=== PATIENT | female | born 1995 | race African-American/Black ===

== ENCOUNTER 2017-05-20 08:49 | Inpatient (IN) | payer OTHER ==
[~2017-05-20] VITALS: Ht 170.2 cm; Wt 82.0 kg
[2017-05-20] VITALS (10 sets, daily range): BP systolic 74–114; BP diastolic 40–61; PULSE 120–140; RESP 18–40; TEMP 98.6–100.1; O2SAT 90–100
[2017-05-20] MEDS ORDERED: SODIUM CHLOR 0.9% 1000 ML INJ 1,000 ML IV ONE ×6 (09:30→11:45)
--- NOTE | 2017-05-20 09:42 | PD ---
HPI Chief Complaint: Cold / Flu Symptoms Time Seen by Provider: 09:30 Travel History International Travel<30 days: No Contact w/Intl Traveler<30days: No Traveled to known affect area: No History of Present Illness HPI This is a 21-year-old female with no previous significant medical history, presents today with complaints of fevers ideation numbness and tingling to her hands and feet as well as sore throat and cough. The patient states on Saturday she started developing sore throat. She states since then she's had significant nausea vomiting. She states she is unable to hold anything down. She reports today just feeling so weak that she could barely get up. The patient has not been immunized for the influenza virus. She reports a temperature 101.4 this morning. 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 The patient denies any history of tobacco use. There is no reported control use. There is no reported long car rides or plane rides. There is no previous trauma to the lower extremities and there is no calf tenderness. There are no other complaints at the time of my examination. [facility] Past Medical History Medical History: Denies Significant Hx ?: Not Past Surgical History Surgical History: No Previous Surgery Social History Alcohol Use: No Tobacco Use: No Substance Use: No Allergies-Medications (Allergen,Severity, Reaction): Coded Allergies: No Known Allergies (Unverified , 05/20/17) Reported Meds & Prescriptions Reported Meds & Active Scripts Active No Active Prescriptions or Reported Medications Review of Systems Except as stated in HPI: all other systems reviewed are Neg General / Constitutional: Positive: Fever, Chills Eyes: No: Blurred Vision, Drainage HENT: Positive: Sore Throat, No: Headaches, Rhinorrhea, Neck Stiffness, Neck Pain Cardiovascular: No: Chest Pain or Discomfort, Palpitations Respiratory: Positive: Cough (patient states she feels like she needs to cough up phlegm however is unable to), Shortness of Breath, Pleuritic Pain, No: Hemoptysis Gastrointestinal: Positive: Nausea, Vomiting, No: Diarrhea, Abdominal Pain Genitourinary: No: Frequency, Dysuria Musculoskeletal: Positive: Weakness (unrealized), Pain (diffuse body aches), No : Edema Skin: No Rash, No Lesions Neurologic: Positive: Weakness (generalized), Sensory Disturbance (numbness and tingling to her hands and feet), No: Focal Abnormalities, Headache Physical Exam Narrative GENERAL: Well-developed well-nourished female in moderate respiratory distress. SKIN: Focused skin assessment warm/dry. HEAD: Atraumatic. Normocephalic. EYES: No scleral icterus. No injection or drainage. ENT: No nasal bleeding or discharge. Dry mucous membranes. Posterior pharynx erythematous with no exudate. Uvula is midline. No stridor appreciated. NECK: Trachea midline. Supple. CARDIOVASCULAR: Tachycardic with a rate in the low 150s. No obvious murmur appreciated. RESPIRATORY: No accessory muscle use. Clear to auscultation. Breath sounds equal bilaterally. Shallow respirations bilaterally. GASTROINTESTINAL: Abdomen soft, non-tender, nondistended. No tenderness over her spleen. No rebound or guarding. MUSCULOSKELETAL: No obvious deformities. No clubbing. No cyanosis. No edema. NEUROLOGICAL: Awake and alert. No obvious cranial nerve deficits. Motor grossly within normal limits. Normal speech. PSYCHIATRIC: Appropriate mood and affect; insight and judgment normal. Data Data Last Documented VS Vital Signs Date Time Temp Pulse Resp B/P (MAP) Pulse Ox O2 Delivery O2 Flow Rate FiO2 05/20/17 10:40 140 32 85/43 (57) 96 2.00 05/20/17 10:40 Nasal Cannula Orders Orders Complete Blood Count With Diff (05/20/17 09:30) Comprehensive Metabolic Panel (05/20/17 09:30) Blood Culture (05/20/17 09:30) Urinalysis - C+S If Indicated (05/20/17 09:30) D-Dimer (05/20/17 09:30) Group A Rapid Strep Screen (05/20/17 09:30) Influenzae A/B Antigen (05/20/17 09:30) Chest, Single Ap (05/20/17 09:30) Iv Access Insert/Monitor (05/20/17 09:30) Ecg Monitoring (05/20/17 09:30) Oximetry (05/20/17 09:30) Ed Urine Pregnancytest Poc (05/20/17 09:30) Monoscreen (05/20/17 09:30) Sodium Chlor 0.9% 1000 Ml Inj (Ns 1000 M (05/20/17 09:30) Sodium Chlor 0.9% 1000 Ml Inj (Ns 1000 M (05/20/17 10:15) Strep Culture (Group A) (05/20/17 09:40) Ibuprofen (Motrin) (05/20/17 10:30) Electrocardiogram (05/20/17 ) Hepatitis Profile (05/20/17 10:45) Sodium Chlor 0.9% 1000 Ml Inj (Ns 1000 M (05/20/17 11:45) Admit Order (Ed Use Only) (05/20/17 11:39) Lactic Acid Sepsis Protocol (05/20/17 11:41) Creatine Kinase (Cpk) (05/20/17 11:41) Cbc No Diff, Includes Plts (05/21/17 05:00) Cbc No Diff, Includes Plts (05/22/17 05:00) Cbc No Diff, Includes Plts (05/23/17 05:00) Cbc No Diff, Includes Plts (05/24/17 05:00) Cbc No Diff, Includes Plts (05/25/17 05:00) Cbc No Diff, Includes Plts (05/26/17 05:00) Cbc No Diff, Includes Plts (05/27/17 05:00) Basic Metabolic Panel (Bmp) (05/21/17 05:00) Basic Metabolic Panel (Bmp) (05/22/17 05:00) Basic Metabolic Panel (Bmp) (05/23/17 05:00) Basic Metabolic Panel (Bmp) (05/24/17 05:00) Basic Metabolic Panel (Bmp) (05/25/17 05:00) Basic Metabolic Panel (Bmp) (05/26/17 05:00) Basic Metabolic Panel (Bmp) (05/27/17 05:00) Inpatient Certification (05/20/17 11:38) Resp Ezpap/Pep Therapy (05/20/17 11:38) Resp Acapella/Pep/Chest Vibra (05/20/17 11:38) Resp Incentive Spirometry (05/20/17 11:38) Blood Culture (05/20/17 11:38) Specimen To Be Collected PRN (05/20/17 11:38) Arterial Blood Gas (Abg) (05/20/17 11:38) Urinary Catheter Management MATTY.Q1H (05/20/17 11:38) Tylenol (Acetaminophen) (05/20/17 11:38) Salicylates (Aspirin) (05/20/17 11:38) Alcohol (Ethanol) (05/20/17 11:38) Drug Screen,Ur W/Confirmation (05/20/17 11:38) Labs Laboratory Tests Test 05/20/17 09:30 05/20/17 09:40 05/20/17 10:55 White Blood Count 14.0 TH/MM3 Red Blood Count 4.46 MIL/MM3 Hemoglobin 13.5 GM/DL Hematocrit 41.3 % Mean Corpuscular Volume 92.7 FL Mean Corpuscular Hemoglobin 30.3 PG Mean Corpuscular Hemoglobin Concent 32.7 % Red Cell Distribution Width 12.9 % Platelet Count 146 TH/MM3 Mean Platelet Volume 10.0 FL Neutrophils (%) (Auto) 95.7 % Lymphocytes (%) (Auto) 2.1 % Monocytes (%) (Auto) 1.7 % Eosinophils (%) (Auto) 0.4 % Basophils (%) (Auto) 0.1 % Neutrophils # (Auto) 13.4 TH/MM3 Lymphocytes # (Auto) 0.3 TH/MM3 Monocytes # (Auto) 0.2 TH/MM3 Eosinophils # (Auto) 0.1 TH/MM3 Basophils # (Auto) 0.0 TH/MM3 CBC Comment AUTO DIFF Differential Total Cells Counted 100 Neutrophils % (Manual) 25 % Band Neutrophils % 16 % Lymphocytes % 2 % Monocytes % 2 % Neutrophils # (Manual) 13.4 TH/MM3 Metamyelocytes 54 % Myelocytes 1 % Differential Comment FINAL DIFF MANUAL Toxic Granulation 1+ Toxic Vacuolation PRESENT Dohle Bodies PRESENT Platelet Estimate NORMAL Platelet Morphology Comment NORMAL D-Dimer Quantitative (PE/DVT) 13.97 MG/L FEU Blood Urea Nitrogen 47 MG/DL Creatinine 6.52 MG/DL Random Glucose 93 MG/DL Total Protein 7.2 GM/DL Albumin 3.3 GM/DL Calcium Level 8.0 MG/DL Alkaline Phosphatase 64 U/L Aspartate Amino Transf (AST/SGOT) 71 U/L Alanine Aminotransferase (ALT/SGPT) 81 U/L Total Bilirubin 5.5 MG/DL Sodium Level 131 MEQ/L Potassium Level 3.2 MEQ/L Chloride Level 93 MEQ/L Carbon Dioxide Level 16.0 MEQ/L Anion Gap 22 MEQ/L Estimat Glomerular Filtration Rate 10 ML/MIN Monoscreen NEG MDM Medical Decision Making Medical Screen Exam Complete: Yes Emergency Medical Condition: Yes Differential Diagnosis Strep throat versus mono versus influenza versus pneumonia versus dehydration Narrative Course 21-year-old female presents with weakness, numbness and tingling to her extremities, nausea vomiting diarrhea. The patient states it started on Saturday. She's been feeling bad since then. There is reported fevers of 101.4. The patient has a known elevated white blood cell count of 14,000. She has predominantly segs. Patient also has acute kidney failure and elevated liver enzymes including bilirubin. Monospot, influenza, strep screen are all negative. The patient's been given 2 L of IVD fluid. A third is hanging now. There is a call out to the manager configuration for admission. I did order a hepatitis panel. Critical Care Narrative Aggregate critical care time was 45 minutes. Time to perform other separately billable procedures was not included in the critical care time. My time did not include minutes spent treating any other patients simultaneously or on activities that did not directly contribute to the patient's treatment. The services I provided to this patient were to treat and/or prevent clinically significant deterioration that could result in: I provided critical care services requiring my management, as noted below: Chart data review, documentation time, medication orders and management, vital sign assessments/reviewing monitor data, ordering and reviewing lab tests, ordering and interpreting/reviewing x-rays and diagnostic studies, care of the patient and discussion of the patient with the admitting physicians. Diagnosis Primary Impression: Acute renal failure Additional Impressions: Elevated liver enzymes persistent tachycardia Nausea vomiting and diarrhea mild hypokalemia mild hyponatremia Admitting Information Admitting Physician Requests: Admit Scripts No Active Prescriptions or Reported Meds Magdy Kaur MD May 20, 2017 09:42
[2017-05-20 09:53] LABS: AUTOMATED NEUTROPHIL # 13.4 TH/MM3 (1.8-7.7); BASOPHIL % 0.1 % (0.0-2.0); EOSINOPHIL # 0.1 TH/MM3 (0-0.4); EOSINOPHIL % 0.4 % (0.0-4.0); HEMATOCRIT 41.3 % (35.0-46.0); HEMOGLOBIN 13.5 GM/DL (11.6-15.3); LYMPH % 2.1 % (9.0-44.0); LYMPHOCYTE # 0.3 TH/MM3 (1.0-4.8); MEAN CELL VOLUME 92.7 FL (80.0-100.0); MEAN CORPUSCULAR HEMOGLOBIN 30.3 PG (27.0-34.0); MEAN CORPUSCULAR HGB CONC 32.7 % (32.0-36.0); MONO % 1.7 % (0.0-8.0); MONOCYTE # 0.2 TH/MM3 (0-0.9); NEUT % 95.7 % (16.0-70.0); PLATELET COUNT 146 TH/MM3 (150-450); RED BLOOD COUNT 4.46 MIL/MM3 (4.00-5.30); RED CELL DISTRIBUTION WIDTH 12.9 % (11.6-17.2)
--- NOTE | 2017-05-20 10:01 | RADRPT ---
EXAM DATE/TIME: 05/20/2017 09:45 [facility] COMPARISON: No previous studies available for comparison. INDICATIONS : Patient states fever and cough. MEDICAL HISTORY : None. SURGICAL HISTORY : None. ENCOUNTER: Initial ACUITY: 3 days PAIN SCORE: 0/10 LOCATION: Bilateral chest FINDINGS: A single view of the chest demonstrates the lungs to be symmetrically aerated without evidence of mas s, infiltrate or effusion. The cardiomediastinal contours are unremarkable. Mild scoliosis convex t o the left centered at T6.. CONCLUSION: No acute disease. Zeus Pulido MD FACR on May 20, 2017 at 9:56 Board Certified Radiologist. This report was verified electronically.
[2017-05-20 10:10] LABS: ALBUMIN 3.3 GM/DL (3.4-5.0); ALT (GPT) 81 U/L (9-42); AST (GOT) 71 U/L (16-38); BLOOD UREA NITROGEN 47 MG/DL (7-18); CHLORIDE 93 MEQ/L (98-107); CREATININE 6.52 MG/DL (0.50-1.00); GLOMERULAR FILTRATION RATE 10 ML/MIN (>89); GLUCOSE,RANDOM 93 MG/DL (74-106); SODIUM (NA) 131 MEQ/L (136-145)
[2017-05-20 10:12] LABS: ALKALINE PHOSPHATASE 64 U/L (45-117); TOTAL BILIRUBIN ADULT 5.5 MG/DL (0.2-1.0); TOTAL PROTEIN 7.2 GM/DL (6.4-8.2)
[2017-05-20] MEDS ORDERED: IBUPROFEN 800 MG TAB PO ONE ×2 (10:30)
[2017-05-20 10:43] LABS: BANDS 16 % (0-6); DOHLE BODIES PRESENT (NONE SEEN); LYMPHOCYTES 2 % (9-44); METAMYELOCYTES 54 % (0-1); MONOCYTES 2 % (0-8); MYELOCYTES 1 % (0-0); NEUTROPHIL # MANUAL DIFF 13.4 TH/MM3 (1.8-7.7); POLYS (SEG NEUTROPHILS) 25 % (16-70); TOXIC VACUOLATION PRESENT (NONE SEEN)
[2017-05-20 10:44] LABS: TOXIC GRANULATION 1+ (NORMAL)
[2017-05-20] MEDS: SODIUM CHLOR 0.9% 1000 ML INJ 1,000 ML IV SCH ×4 (11:46→18:42)
[2017-05-20] MEDS ORDERED: MISCELLANEOUS NURSING INFORMATION XX SCH ×2 (12:00)
[2017-05-20] MEDS ORDERED: CHLORHEXIDINE GLUCONATE 2 % 1 PACK (2 CLOTHS) TOP PRN ×2 (12:00)
[2017-05-20] MEDS ORDERED: RESP: ALBUTEROL 2.5 MG/IPRATROPIUM 0.5 MG NEB (PRN) INH ×2 (12:00)
[2017-05-20 12:13] LABS: PROTHROMBIN TIME - PATIENT 22.3 SEC (9.8-11.6)
--- NOTE | 2017-05-20 12:15 | EKG ---
Date Performed: 05/20/2017 Time Performed: 09:16:05 PTAGE: 21 years EKG: SINUS TACHYCARDIA WITH SHORT CO INTERVAL, POSSIBLE ATRIAL FLUTTER NONSPECIFIC T-WAVE ABNORM ALITY ABNORMAL RHYTHM ECG Compared to prior tracing no significant change PREVIOUS TRACING : 05/18/2017 03.26 DOCTOR: Isma Donald Interpretating Date/Time 05/20/2017 12:12:40
--- NOTE | 2017-05-20 12:15 | EKG ---
Date Performed: 05/20/2017 Time Performed: 09:16:05 PTAGE: 21 years EKG: SINUS TACHYCARDIA WITH SHORT VT INTERVAL, POSSIBLE ATRIAL FLUTTER NONSPECIFIC T-WAVE ABNORM ALITY ABNORMAL RHYTHM ECG Compared to prior tracing no significant change PREVIOUS TRACING : 05/18/2017 03.26 DOCTOR: Isma Donald Interpretating Date/Time 05/20/2017 12:12:40
--- NOTE | 2017-05-20 12:15 | EKG ---
Date Performed: 05/20/2017 Time Performed: 09:16:05 PTAGE: 21 years EKG: SINUS TACHYCARDIA WITH SHORT VA INTERVAL, POSSIBLE ATRIAL FLUTTER NONSPECIFIC T-WAVE ABNORM ALITY ABNORMAL RHYTHM ECG Compared to prior tracing no significant change PREVIOUS TRACING : 05/18/2017 03.26 DOCTOR: Isma Donald Interpretating Date/Time 05/20/2017 12:12:40
[2017-05-20 12:30] LABS: HEPATITIS A AB IGM NEGATIVE (NEGATIVE); HEPATITIS C AB IgG NEGATIVE (NEGATIVE)
[2017-05-20 12:38] LABS: ACETAMINOPHEN LESS THAN 2.0 MCG/ML (10.0-30.0)
[2017-05-20] MEDS: HEPARIN SODIUM - SQ 10,000 UNITS/ML VIAL SQ SCH ×2 (13:00)
--- NOTE | 2017-05-20 13:15 | RADRPT ---
EXAM DATE/TIME: 05/20/2017 12:08 [facility] COMPARISON: No previous studies available for comparison. INDICATIONS : Abdominal pain. MEDICAL HISTORY : Abdominal pain. Nausea. Vomitting. SURGICAL HISTORY : None. ENCOUNTER: Initial ACUITY: 2 days PAIN SCORE: 6/10 LOCATION: Abdomen. MEASUREMENTS: LIVER: 16.8 cm length COMMON DUCT: 2 mm RIGHT KIDNEY: 11.2 x 5.0 x 3.6 cm LEFT KIDNEY: 11.6 x 4.9 x 5.0 cm SPLEEN: 12.2 cm length AORTA: 1.1cm maximal FINDINGS: LIVER: Scattered small hyperechoic areas left lobe liver nonspecific. COMMON DUCT: No intraluminal mass or stone visualized. GALLBLADDER: Contains no stones, demonstrates no wall thickening or pericholecystic fluid. PANCREAS: The visualized portions are within normal limits. RIGHT KIDNEY: No hydronephrosis, stone or mass. LEFT KIDNEY: 1.4 center cyst left kidney SPLEEN: No focal lesion. AORTA: Non aneurysmal. IVC: Within normal limits. CONCLUSION: Scattered small hyperechoic nonspecific there is left lobe of the liver. There are no gallstones. C T scan with contrast may be of benefit. Zeus Pulido MD FACR on May 20, 2017 at 13:11 Board Certified Radiologist. This report was verified electronically.
[2017-05-20 14:15] LABS: LACTIC ACID SEPSIS PROTOCOL 6.8 mmol/L (0.4-2.0)
[2017-05-20 14:28] LABS: HEPATITIS B SURFACE ANTIGEN NEGATIVE (NEGATIVE)
[2017-05-20] MEDS ORDERED: TERBUTALINE INJ 1 MG/ML AMP SQ PRN ×2 (14:45)
[2017-05-20 14:58] LABS: AMORPHOUS SEDIMENT, URINE RARE; BACTERIA, URINE MANY /hpf; BILIRUBIN, URINE MOD (NEG); BLOOD, URINE MOD (NEG); GLUCOSE,URINE NEG (NEG); HYALINE CAST, URINE 19 /lpf (RARE); KETONE, URINE NEG (NEG); NITRITE,URINE NEG (NEG); PH, URINE 5.5 (5.0-8.5); SQUAMOUS EPITHELIAL CELL URINE 1 /hpf (0-5); URINE COLOR DARK-YELLOW (YELLW/STRAW); URINE LEUKOCYTE ESTERASE MOD (NEG)
[2017-05-20] MEDS: NOREPINEPHRINE-DEXTROSE DRIP 250 ML IV PRN ×2 (15:04)
--- NOTE | 2017-05-20 15:12 | PD.ID.CON ---
History of Present Illness Service ID Consult Requested By External Relations Manager. Reason for Consult Evaluation and Mment of sepsis possible HUS. Primary Care Physician Unknown Diagnoses: History of Present Illness is a 21 y/o AAF with no significant PMHx who presents with acute onset of diarrhea, N/V, extreme weakness with no urine output for ~ 3 days prior to admission. Patient reports she was playing her usual volley ball game and came home and had a a nap. When she woke up she felt nauseous, vomited couple of times and had diarrhea with no blood since then. She continued to have these symptoms since that day and progressively felt weak, achy with headaches. She denies any visual problems. She reports discomfort in her throat and secretions accumulating in mouth. She denies any soreness although on exam she has erythema. She denies any difficulty swallowing. She reports an acute steady decline in urine output and has had no urine output since 2 days. She reports myalgias and extreme weakness and could not participate in a neuro exam. She reports neck pain but no neck stiffness and is able to move her neck side ways. She denies any rash. Foods consumed last week: Salads, chilli, McDonal[employer] burger and apple pie. She denies eating any cold cuts, hot dogs or fresh cheeses. In fact she does not like cheese. She lives with her room mates from college and 1 other person has flu like symptoms but no one else has GI symptoms. She has never been tested for hepatitis and HIV. She is currently in her periods and reports using tampons earlier on but she removed them in their entirety. No vaginal foul smelling discharge other than usual menstrual blood. She reports being sexually active but protected sex with no oral activity. On presentation to the ED she reported a fever 101 F at home, subjective chills. She had a SBP 85, lactic acid elevated, WBC elevated at 14.5 with Dohle' s bodies, no obvious schistocytes, LDH and Hapto are normal but Ddimer is elevated and coag abnormal with elevated INR. Pathologist review of smear is pending at present time. I personally called and notified need for stat PS review by pathologist. 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 Central line and A line are being placed. ID consulted for evaluation and Mment of sepsis possible HUS. Review of Systems Constitutional: COMPLAINS OF: Diaphoretic episodes, Fatigue, Fever, Chills, Dizziness, Change in appetite, DENIES: Weight gain, Weight loss, Night Sweats Endocrine: DENIES: Abnorml menstrual pattern, Heat/cold intolerance, Polydipsia , Polyuria, Polyphagia Eyes: DENIES: Blurred vision, Diplopia, Eye inflammation, Eye pain, Vision loss , Photosensitivity, Double Vision Ears, nose, mouth, throat: DENIES: Tinnitus, Hearing loss, Vertigo, Nasal discharge, Oral lesions, Throat pain, Hoarseness, Ear Pain, Running Nose, Epistaxis, Sinus Pain, Toothache, Odynophagia Respiratory: DENIES: Apneas, Cough, Snoring, Wheezing, Hemoptysis, Sputum production, Shortness of breath Cardiovascular: DENIES: Chest pain, Palpitations, Syncope, Dyspnea on Exertion , PND, Lower Extremity Edema, Orthopnea, Claudication Gastrointestinal: COMPLAINS OF: Diarrhea, Nausea, Vomiting Genitourinary: DENIES: Abnormal vaginal bleeding, Dysmenorrhea, Dyspareunia, Sexual dysfunction, Urinary frequency, Urinary incontinence, Urgency, Hematuria , Dysuria, Nocturia, Vaginal discharge Musculoskeletal: COMPLAINS OF: Muscle aches, Neck pain, DENIES: Joint pain, Stiffness, Joint Swelling, Back pain Integumentary: DENIES: Abnormal pigmentation, Pruritus, Rash, Nail changes, Breast masses, Breast skin changes, Nipple discharge Hematologic/lymphatic: DENIES: Bruising, Lymphadenopathy Immunologic/allergic: DENIES: Eczema, Urticaria Neurologic: DENIES: Abnormal gait, Headache, Localized weakness, Paresthesias, Seizures, Speech Problems, Tremor, Poor Balance Psychiatric: DENIES: Anxiety, Confusion, Mood changes, Depression, Hallucinations, Agitation, Suicidal Ideation, Homicidal Ideation, Delusions Except as stated in HPI: all other systems reviewed are Neg currently in her periods. Past Family Social History Allergies: Coded Allergies: No Known Allergies (Unverified Allergy, Unknown, 05/20/17) Past Medical History None Past Surgical History None Reported Medications I attest I reviewed, obtained or updated pts home and current meds. No meds at home. Active Ordered Medications Current Medications Medications (Trade) Dose Ordered Sig/Juju Route Start Time Stop Time Status Last Admin Sodium Chloride 1,000 ml @ 125 mls/hr Q8H IV 05/20/17 11:46 05/20/17 11:46 (Zofran Inj) 4 mg Q6H PRN IV PUSH 05/20/17 12:00 (Duoneb Neb) 1 ampule Q2HR NEB PRN INH 05/20/17 12:00 (Heparin Inj) 5,000 units Q12H SQ 05/20/17 13:00 Miscellaneous Information 1 Q361D XX 05/20/17 12:00 (Chlorhexidine 2% Cloth) 3 pack Taper DAILY@04 TOP 05/21/17 04:00 05/17/18 03:59 (Chlorhexidine 2% Cloth) 3 pack UNSCH PRN TOP 05/20/17 12:00 Norepinephrine Bitartrate 250 ml @ 7.5 mls/hr TITRATE PRN IV 05/20/17 14:45 05/20/17 15:04 (Brethine Inj) 1 mg UNSCH PRN SQ 05/20/17 14:45 Sodium Bicarbonate 150 meq/Dextrose 1,150 ml @ 150 mls/hr Q7H40M IV 05/20/17 14:45 Family History reviewed and NC to current ID problem. Social History No alcohol, no smoking, no IVDA. Lives with her room mates. Loves to play volley ball on school team. Physical Exam Vital Signs Vital Signs Date Time Temp Pulse Resp B/P (MAP) Pulse Ox O2 Delivery O2 Flow Rate FiO2 05/20/17 15:04 122 71/35 05/20/17 14:08 100.1 129 27 75/40 (52) 98 Nasal Cannula 3.00 05/20/17 10:40 140 32 85/43 (57) 96 2.00 05/20/17 10:40 138 34 89/46 (60) 100 Nasal Cannula 2.00 05/20/17 09:23 Nasal Cannula 2.00 05/20/17 08:59 40 Physical Exam GENERAL: This is a well-nourished, well-developed patient, in no apparent distress. SKIN: No rashes, ecchymoses or lesions. Cool and dry. HEAD: Atraumatic. Normocephalic. No temporal or scalp tenderness. EYES: Pupils equal round and reactive. Extraocular motions intact. No scleral icterus. No injection or drainage. ENT: Nose without bleeding, purulent drainage or septal hematoma. Throat without erythema, tonsillar hypertrophy or exudate. Uvula midline. Airway patent. NECK: Trachea midline. Not able to flex spontaneously. On flexing her neck she reports pain in neck but I was able to move neck side to side. No LN sophie appreciated. Oral exam: erythema noted, secretions pooling. Good gag reflex. patent airway. CARDIOVASCULAR: Regular rate and rhythm without murmurs, gallops, or rubs. RESPIRATORY: Clear to auscultation. Breath sounds equal bilaterally. No wheezes , rales, or rhonchi. GASTROINTESTINAL: Abdomen soft, non-tender, nondistended. MUSCULOSKELETAL: Extremities without clubbing, cyanosis, or edema. No joint tenderness, effusion, or edema noted. No calf tenderness. Negative Homans sign bilaterally. NEUROLOGICAL: Awake and alert. difficult to assess muscle strength. was able to make a transport coordinator. Able to dorsiflex and plantar flex at ankle but not able to actively flex at knee level unsure if this is due to extreme weakness. Psych cooperative IV line sites with no e.o infection. Laboratory Laboratory Tests Test 05/20/17 09:30 05/20/17 09:40 05/20/17 10:55 05/20/17 12:35 White Blood Count 14.0 Red Blood Count 4.46 Hemoglobin 13.5 Hematocrit 41.3 Mean Corpuscular Volume 92.7 Mean Corpuscular Hemoglobin 30.3 Mean Corpuscular Hemoglobin Concent 32.7 Red Cell Distribution Width 12.9 Platelet Count 146 Mean Platelet Volume 10.0 Neutrophils (%) (Auto) 95.7 Lymphocytes (%) (Auto) 2.1 Monocytes (%) (Auto) 1.7 Eosinophils (%) (Auto) 0.4 Basophils (%) (Auto) 0.1 Neutrophils # (Auto) 13.4 Lymphocytes # (Auto) 0.3 Monocytes # (Auto) 0.2 Eosinophils # (Auto) 0.1 Basophils # (Auto) 0.0 CBC Comment AUTO DIFF Differential Total Cells Counted 100 Neutrophils % (Manual) 25 Band Neutrophils % 16 Lymphocytes % 2 Monocytes % 2 Neutrophils # (Manual) 13.4 Metamyelocytes 54 Myelocytes 1 Differential Comment FINAL DIFF MANUAL Toxic Granulation 1+ Toxic Vacuolation PRESENT Dohle Bodies PRESENT Platelet Estimate NORMAL Platelet Morphology Comment NORMAL Blood Smear Pathologist Review Prothrombin Time 22.3 Prothromb Time International Ratio 2.0 Activated Partial Thromboplast Time 34.0 D-Dimer Quantitative (PE/DVT) 13.97 Blood Urea Nitrogen 47 Creatinine 6.52 Random Glucose 93 Total Protein 7.2 Albumin 3.3 Calcium Level 8.0 Alkaline Phosphatase 64 Aspartate Amino Transf (AST/SGOT) 71 Alanine Aminotransferase (ALT/SGPT) 81 Total Bilirubin 5.5 Sodium Level 131 Potassium Level 3.2 Chloride Level 93 Carbon Dioxide Level 16.0 Anion Gap 22 Estimat Glomerular Filtration Rate 10 Total Creatine Kinase 276 Creatine Kinase MB 1.1 Creatine Kinase MB % 0.4 Salicylates Level LESS THAN 1.7 Acetaminophen Level LESS THAN 2.0 Ethyl Alcohol Level LESS THAN 3 Monoscreen NEG Haptoglobin 134 Serum Osmolality 286 Lactate Dehydrogenase 229 Hepatitis A IgM Antibody NEGATIVE Hepatitis B Surface Antigen NEGATIVE Hepatitis B Core IgM Antibody NEGATIVE Hepatitis C Antibody NEGATIVE Blood Gas Puncture Site RT RADIAL Blood Gas Patient Temperature 98.6 Blood Gas HCO3 11 Blood Gas Base Excess -14.2 Blood Gas Oxygen Saturation 95 Arterial Blood pH 7.30 Arterial Blood Partial Pressure CO2 23 Arterial Blood Partial Pressure O2 92 Arterial Blood Oxygen Content 15.2 Arterial Blood Carboxyhemoglobin 0.6 Arterial Blood Methemoglobin 0.6 Blood Gas Hemoglobin 11.3 Oxygen Delivery Device NASAL CANNULA Blood Gas Liter Flow 2 Test 05/20/17 13:40 05/20/17 14:00 Lactic Acid Level 6.8 Urine Color DARK-YELLOW Urine Turbidity CLOUDY Urine pH 5.5 Urine Specific [place] 1.020 Urine Protein 100 Urine Glucose (UA) NEG Urine Ketones NEG Urine Occult Blood MOD Urine Nitrite NEG Urine Bilirubin MOD Urine Urobilinogen LESS THAN 2.0 Urine Leukocyte Esterase MOD Urine RBC 12 Urine WBC 31 Urine Squamous Epithelial Cells 1 Urine Amorphous Sediment RARE Urine Bacteria MANY Urine Hyaline Casts 19 Microscopic Urinalysis Comment CULTURE INDICATED Date/Time Source Procedure Growth Status 05/20/17 09:35 Blood Peripheral Aerobic Blood Culture Pending Received 05/20/17 09:35 Blood Peripheral Anaerobic Blood Culture Pending Received 05/20/17 09:40 Throat Group A Streptococcus Screen Pending Received 05/20/17 14:00 Urine Random Urine Urine Culture Pending Received Result Diagram: 05/20/1792905/20/17929 Imaging Last Impressions Chest X-Ray 05/20/17929 Signed Impressions: Service Date/Time: Saturday, May 20, 2017 09:45 - CONCLUSION: No acute disease. Zeus Pulido MD FACR Abdomen Ultrasound 05/20/17 0000 Signed Impressions: Service Date/Time: Saturday, May 20, 2017 12:08 - CONCLUSION: Scattered small hyperechoic nonspecific there is left lobe of the liver. There are no gallstones. CT scan with contrast may be of benefit. Zeus Pulido MD FACR Assessment and Plan Assessment and Plan Septic Shock (fever, leucocytosis, Source: GI, bacteremia, hypotension and lactic acidosis) Acute onset of GI pathology (N,V,Diarrhea, abnormal LFTs, elevation of bili) Acute renal failure (prerenal, sepsis, HUS) Probable HUS (in setting of Hepatorenal pathology of acute onset with thrombocytopenia) Acute onset tingling numbness with generalized weakness (starting lower body progressively involving UE) Rule out GB syndrome. Acute thrombocytopenia with DIC like picture (HUS, sepsis) Tingling numbness: ? metabolic vs GB syndrome. Recs: Start Cefepime IV renal dose adjusted by me. Start Flagyl IV Start Daptomycin IV (ASP: acute renal failure, low platelets) Blood cultures x 2 Follow hepatitis profile. Check HIV antibody screen (pt consented) Stool studies ordered. Called pathology dept to have pathology MD review peripheral smear stat. Called and discussed case with him he will see pt today Called and notified of case to be seen stat. Called and discussed case with Neurology who will see pt later today. d/w : when BP stable and lines in to consider CT Neck C/A/P non contrast tonight. Rule out Lemiere's disease. d.w Patient and Mom: spent in excess of 30 mins. Critical thinking and decision making. Krista Chakraborty MD May 20, 2017 15:12
[2017-05-20] MEDS: SODIUM BICARBONATE 8.4% INJ 150 MEQ in DEXTROSE 5% IN WATE 1000ML INJ 1,000 ML IV SCH ×4 (15:35)
[2017-05-20] MEDS: SODIUM CHLORID 0.9% 500 ML INJ 500 ML IV SCH ×2 (16:00)
[2017-05-20] MEDS ORDERED: SODIUM CHLOR 0.9% 1000 ML INJ 2,000 ML IV ONE ×2 (16:00)
[2017-05-20] MEDS: DOBUTamine PREMIX DRIP 250 ML IV PRN ×4 (16:45→19:58)
[2017-05-20] MEDS: DOBUTamine PREMIX DRIP 250 ML ONE ×4 (16:46→19:22)
--- NOTE | 2017-05-20 16:47 | RADRPT ---
EXAM DATE/TIME: 05/21/2017 04:22 [facility] COMPARISON: CHEST SINGLE AP, May 20, 2017, 9:45. INDICATIONS : Central line placement. MEDICAL HISTORY : None. SURGICAL HISTORY : None. ENCOUNTER: Initial ACUITY: 1 day PAIN SCORE: 1/10 LOCATION: Bilateral chest FINDINGS: Central line in good position. Lungs are under aerated with minimal bibasilar interstitial changes. There is no pneumothorax. CONCLUSION: Line in good position without pneumothorax. Zeus Pulido MD FACR on May 20, 2017 at 16:37 Board Certified Radiologist. This report was verified electronically.
[2017-05-20 16:54] LABS: CREATININE, RANDOM URINE 351.6 MG/DL
--- NOTE | 2017-05-20 17:13 | PD.CONS ---
[facility] Service Nephrology Consult Requested By Reason for Consult Acute renal failure Primary Care Physician Unknown History of Present Illness 21-year-old with the no known past medical history she states that she felt sick and developed diarrhea which was profuse since Saturday night and continued on Saturday she felt tingling in her legs and was feeling weak tired lethargic, she developed fever 101.4 and came with these symptoms with severe metabolic acidosis, hypotension and acute renal failure with abnormal LFTs. There is no known history of kidney failure or kidney stones, patient's family history is negative for kidney disease, patient is alert and responsive. Review of Systems Constitutional: COMPLAINS OF: Diaphoretic episodes, Fatigue, Fever, Chills Past Family Social History Allergies: Coded Allergies: No Known Allergies (Unverified Allergy, Unknown, 05/20/17) Physical Exam Vital Signs Vital Signs Date Time Temp Pulse Resp B/P (MAP) Pulse Ox O2 Delivery O2 Flow Rate FiO2 05/20/17 16:15 100 Nasal Cannula 4.00 05/20/17 15:04 122 71/35 05/20/17 14:08 100.1 129 27 75/40 (52) 98 Nasal Cannula 3.00 05/20/17 10:40 140 32 85/43 (57) 96 2.00 05/20/17 10:40 138 34 89/46 (60) 100 Nasal Cannula 2.00 05/20/17 09:23 Nasal Cannula 2.00 05/20/17 08:59 40 Physical Exam GENERAL: Well-nourished, well-developed patient. SKIN: Warm and dry. HEAD: Normocephalic. EYES: No scleral icterus. Slightly injection or drainage. NECK: Supple, trachea midline. No JVD or lymphadenopathy. CARDIOVASCULAR: Tachycardia RESPIRATORY: Breath sounds equal bilaterally. Patient is tachypneic GASTROINTESTINAL: Abdomen soft, non-tender, nondistended. EXTREMITIES: No cyanosis, or edema. NEUROLOGICAL: Awake, alert, and oriented x 3. Non-focal. Laboratory Laboratory Tests Test 05/20/17 09:30 05/20/17 09:40 05/20/17 10:55 05/20/17 12:35 White Blood Count 14.0 Red Blood Count 4.46 Hemoglobin 13.5 Hematocrit 41.3 Mean Corpuscular Volume 92.7 Mean Corpuscular Hemoglobin 30.3 Mean Corpuscular Hemoglobin Concent 32.7 Red Cell Distribution Width 12.9 Platelet Count 146 Mean Platelet Volume 10.0 Neutrophils (%) (Auto) 95.7 Lymphocytes (%) (Auto) 2.1 Monocytes (%) (Auto) 1.7 Eosinophils (%) (Auto) 0.4 Basophils (%) (Auto) 0.1 Neutrophils # (Auto) 13.4 Lymphocytes # (Auto) 0.3 Monocytes # (Auto) 0.2 Eosinophils # (Auto) 0.1 Basophils # (Auto) 0.0 CBC Comment AUTO DIFF Differential Total Cells Counted 100 Neutrophils % (Manual) 25 Band Neutrophils % 16 Lymphocytes % 2 Monocytes % 2 Neutrophils # (Manual) 13.4 Metamyelocytes 54 Myelocytes 1 Differential Comment FINAL DIFF MANUAL Toxic Granulation 1+ Toxic Vacuolation PRESENT Dohle Bodies PRESENT Platelet Estimate NORMAL Platelet Morphology Comment NORMAL Blood Smear Pathologist Review Prothrombin Time 22.3 Prothromb Time International Ratio 2.0 Activated Partial Thromboplast Time 34.0 D-Dimer Quantitative (PE/DVT) 13.97 Blood Urea Nitrogen 47 Creatinine 6.52 Random Glucose 93 Total Protein 7.2 Albumin 3.3 Calcium Level 8.0 Alkaline Phosphatase 64 Aspartate Amino Transf (AST/SGOT) 71 Alanine Aminotransferase (ALT/SGPT) 81 Total Bilirubin 5.5 Sodium Level 131 Potassium Level 3.2 Chloride Level 93 Carbon Dioxide Level 16.0 Anion Gap 22 Estimat Glomerular Filtration Rate 10 Total Creatine Kinase 276 Creatine Kinase MB 1.1 Creatine Kinase MB % 0.4 Salicylates Level LESS THAN 1.7 Acetaminophen Level LESS THAN 2.0 Ethyl Alcohol Level LESS THAN 3 Monoscreen NEG Haptoglobin 134 Serum Osmolality 286 Lactate Dehydrogenase 229 Hepatitis A IgM Antibody NEGATIVE Hepatitis B Surface Antigen NEGATIVE Hepatitis B Core IgM Antibody NEGATIVE Hepatitis C Antibody NEGATIVE Blood Gas Puncture Site RT RADIAL Blood Gas Patient Temperature 98.6 Blood Gas HCO3 11 Blood Gas Base Excess -14.2 Blood Gas Oxygen Saturation 95 Arterial Blood pH 7.30 Arterial Blood Partial Pressure CO2 23 Arterial Blood Partial Pressure O2 92 Arterial Blood Oxygen Content 15.2 Arterial Blood Carboxyhemoglobin 0.6 Arterial Blood Methemoglobin 0.6 Blood Gas Hemoglobin 11.3 Oxygen Delivery Device NASAL CANNULA Blood Gas Liter Flow 2 Test 05/20/17 13:40 05/20/17 14:00 05/20/17 16:40 Lactic Acid Level 6.8 Urine Color DARK-YELLOW Urine Turbidity CLOUDY Urine pH 5.5 Urine Specific [place] 1.020 Urine Protein 100 Urine Glucose (UA) NEG Urine Ketones NEG Urine Occult Blood MOD Urine Nitrite NEG Urine Bilirubin MOD Urine Urobilinogen LESS THAN 2.0 Urine Leukocyte Esterase MOD Urine RBC 12 Urine WBC 31 Urine Squamous Epithelial Cells 1 Urine Amorphous Sediment RARE Urine Bacteria MANY Urine Hyaline Casts 19 Microscopic Urinalysis Comment CULTURE INDICATED Urine Osmolality 324 Urine Random Creatinine 351.6 Urine Random Sodium 31 Blood Gas Puncture Site CEASAR Blood Gas Patient Temperature 98.6 Blood Gas HCO3 11 Blood Gas Base Excess -14.9 Blood Gas Oxygen Saturation 95 Arterial Blood pH 7.25 Arterial Blood Partial Pressure CO2 26 Arterial Blood Partial Pressure O2 98 Arterial Blood Oxygen Content 13.8 Arterial Blood Carboxyhemoglobin 0.6 Arterial Blood Methemoglobin 0.9 Blood Gas Hemoglobin 10.3 Oxygen Delivery Device NASAL CANNULA Blood Gas Liter Flow 4 Date/Time Source Procedure Growth Status 05/20/17 09:35 Blood Peripheral Aerobic Blood Culture Pending Received 05/20/17 09:35 Blood Peripheral Anaerobic Blood Culture Pending Received 05/20/17 09:40 Throat Group A Streptococcus Screen Pending Received 05/20/17 14:00 Urine Random Urine Urine Culture Pending Received Result Diagram: 05/20/1792905/20/17929 Imaging Last Impressions Chest X-Ray 05/20/17929 Signed Impressions: Service Date/Time: Saturday, May 20, 2017 09:45 - CONCLUSION: No acute disease. Zeus Puildo MD FACR Abdomen Ultrasound 05/20/17 0000 Signed Impressions: Service Date/Time: Saturday, May 20, 2017 12:08 - CONCLUSION: Scattered small hyperechoic nonspecific there is left lobe of the liver. There are no gallstones. CT scan with contrast may be of benefit. Zeus Pulido MD FACR Assessment and Plan Problem List: (1) Acute renal failure ICD Codes: N17.9 - Acute kidney failure, unspecified Status: Acute Plan: She has shocked the kidneys and was hypotensive and has the mixed acid based disturbance Anion gap acidosis. Metabolic alkalosis. Respiratory alkalosis I agree with the treating her with sodium bicarbonate and IV hydration She has negative schistocytes normal haptoglobin normal at the LDH this goes against hemolytic uremic syndrome Continue to monitor her condition Dr. Chakraborty and Dr. Knight agreed that there is no evidence of hemolysis Patient has received the fluids 6 L check urine Na, K, Cl If her acidosis persist and is not getting better we may consider CRRT (2) Elevated liver enzymes ICD Codes: R74.8 - Abnormal levels of other serum enzymes Status: Acute Plan: Possibly shock liver (3) Nausea vomiting and diarrhea ICD Codes: R11.2 - Nausea with vomiting, unspecified; R19.7 - Diarrhea, unspecified Status: Acute Plan: Severe sepsis etiology unclear (4) Acid-base disorder, mixed ICD Codes: E87.4 - Mixed disorder of acid-base balance Plan: Patient appears to have metabolic acidosis, metabolic alkalosis and respiratory alkalosis based upon chemistries and ABG I agree with bicarbonate drip and hydration She received 6 L of fluids She may need the more aggressive care if urine output remains low considers CRRT Discussed with Dr. Knight Problem Qualifiers (1) Acute renal failure: Qualified Codes: N17.0 - Acute kidney failure with tubular necrosis Khadijah Shirley MD May 20, 2017 17:13
[2017-05-20] MEDS ORDERED: POTASSIUM CHLOR 20 MEQ PREMIX 100 ML IV ONE ×2 (17:15)
[2017-05-20] MEDS: ONDANSETRON HCL 4 MG/2 ML VIAL IV PUSH PRN ×4 (17:30→21:47)
[2017-05-20 17:35] LABS: AUTOMATED NEUTROPHIL # 13.1 TH/MM3 (1.8-7.7); BASOPHIL % 0.2 % (0.0-2.0); EOSINOPHIL # 0.1 TH/MM3 (0-0.4); HEMATOCRIT 32.7 % (35.0-46.0); HEMOGLOBIN 10.6 GM/DL (11.6-15.3); LYMPH % 1.3 % (9.0-44.0); LYMPHOCYTE # 0.2 TH/MM3 (1.0-4.8); MEAN CELL VOLUME 90.1 FL (80.0-100.0); MEAN CORPUSCULAR HEMOGLOBIN 29.3 PG (27.0-34.0); MEAN CORPUSCULAR HGB CONC 32.6 % (32.0-36.0); MONO % 1.4 % (0.0-8.0); MONOCYTE # 0.2 TH/MM3 (0-0.9); NEUT % 96.1 % (16.0-70.0); PLATELET COUNT 108 TH/MM3 (150-450); RED BLOOD COUNT 3.63 MIL/MM3 (4.00-5.30); RED CELL DISTRIBUTION WIDTH 12.8 % (11.6-17.2); WHITE BLOOD COUNT 13.6 TH/MM3 (4.0-11.0)
--- NOTE | 2017-05-20 17:47 | RADRPT ---
EXAM DATE/TIME: 05/20/2017 17:26 [facility] COMPARISON: No previous studies available for comparison. INDICATIONS : Neck pain. Lemiere's disease. RADIATION DOSE: 29.82 CTDIvol (mGy) MEDICAL HISTORY : Renal failure, acute. SURGICAL HISTORY : None. ENCOUNTER: Initial ACUITY: 1 day PAIN SCORE: 6/10 LOCATION: Bilateral neck TECHNIQUE: Volumetric scanning of the neck was performed. Using automated exposure control and adjustment of th e mA and/or kV according to patient size, radiation dose was kept as low as reasonably achievable to obtain optimal diagnostic quality images. DICOM format image data is available electronically for re view and comparison. FINDINGS: NASOPHARYNX: The nasopharyngeal airway has a normal configuration. No mucosal thickening or mass is seen. OROPHARYNX: The intrinsic muscles of the tongue are symmetric. The tonsillar pillars are intact. The prevertebr al soft tissues are not thickened. LARYNX: The supraglottic, glottic, and infraglottic structures are intact. PARAPHARYNGEAL: The parapharyngeal space is intact. SALIVARY GLANDS: The parotid and submandibular glands are intact. LYMPH NODES: There nonspecific slightly enlarged group 2 lymph nodes on the right. THYROID: Homogeneous enhancement without evidence of nodule. BONES: Unremarkable. CONCLUSION: 1. Limited evaluation secondary to lack of intravenous contrast. No masses are identified 2. Nonspecific slightly enlarged nodes in group 2 on the right Isma Randhawa MD on May 20, 2017 at 17:43 Board Certified Radiologist. This report was verified electronically.
--- NOTE | 2017-05-20 17:51 | RADRPT ---
EXAM DATE/TIME: 05/20/2017 17:29 [facility] COMPARISON: No previous studies available for comparison. INDICATIONS : Chest pain. Lemiere's disease. RADIATION DOSE: 11.38 CTDIvol (mGy) ; Combined studies - Thorax/Abdomen/Pelvis MEDICAL HISTORY : Renal failure, acute. SURGICAL HISTORY : None. ENCOUNTER: Initial ACUITY: 1 day PAIN SCALE: 8/10 LOCATION: Bilateral chest TECHNIQUE: Volumetric scanning of the chest was performed. Using automated exposure control and adjustment of t he mA and/or kV according to patient size, radiation dose was kept as low as reasonably achievable to obtain optimal diagnostic quality images. DICOM format image data is available electronically for r eview and comparison. Follow-up recommendations for detected pulmonary nodules are based at a minimum on nodule size and pa tient risk factors according to Fleischner Society Guidelines. FINDINGS: Patchy airspace disease is seen in both lung base is. There is no pneumothorax. There is no pleural effusion. There is no axillary or mediastinal adenopathy appreciated. Central line is evident. Review of bone windows shows no destructive changes. CONCLUSION: Patchy airspace disease both lung base is without pleural effusion. Zeus Pulido MD FACR on May 20, 2017 at 17:47 Board Certified Radiologist. This report was verified electronically.
--- NOTE | 2017-05-20 17:52 | RADRPT ---
EXAM DATE/TIME: 05/20/2017 17:29 [place] COMPARISON: No previous studies available for comparison. INDICATIONS : Abdomen pain. Limiere's disease. ORAL CONTRAST: No oral contrast ingested. RADIATION DOSE: 11.38 CTDIvol (mGy) ; Combined studies - Abdomen/Pelvis MEDICAL HISTORY : Renal failure, acute. SURGICAL HISTORY : None. ENCOUNTER: Initial ACUITY: 1 day PAIN SCALE: 5/10 LOCATION: Bilateral abdomen. TECHNIQUE: Volumetric scanning of the abdomen and pelvis was performed. Using automated exposure control and ad justment of the mA and/or kV according to patient size, radiation dose was kept as low as reasonably achievable to obtain optimal diagnostic quality images. DICOM format image data is available electro nically for review and comparison. FINDINGS: Again seen is the patchy airspace disease in both lung base is. Within limits of this noncontrast scan the liver, spleen, pancreas, adrenals and kidneys are unremark able. There is no ascites or adenopathy. There is no free air. Pelvic contents are unremarkable. CONCLUSION: Limited exam without oral intravenous contrast. There is no free air. Do not see evidence for an ab scess.. Zeus Pulido MD FACR on May 20, 2017 at 17:49 Board Certified Radiologist. This report was verified electronically.
[2017-05-20] MEDS ORDERED: DAPTOmycin INJ 700 MG in SODIUM CHLORIDE 0.9% INJ 100 ML IV SCH ×4 (18:00)
[2017-05-20] MEDS: metroNIDAZOLE 500 MG INJ 100 ML IV SCH ×2 (18:42)
[2017-05-20] MEDS: CEFEPIME INJ 2,000 MG in SODIUM CHLORIDE 0.9% INJ 100 ML IV SCH ×4 (18:42)
[2017-05-20] MEDS: VASOPRESSIN INJ 40 UNITS in DEXTROSE 5% IN WATER 100ML INJ 98 ML IV SCH ×4 (18:42)
[2017-05-20 19:37] LABS: BANDS 30 % (0-6); LYMPHOCYTES 1 % (9-44); METAMYELOCYTES 14 % (0-1); MONOCYTES 2 % (0-8); MYELOCYTES 2 % (0-0); NEUTROPHIL # MANUAL DIFF 13.2 TH/MM3 (1.8-7.7); POLYS (SEG NEUTROPHILS) 51 % (16-70)
[2017-05-20 19:39] LABS: BURR CELLS 1+ (NORMAL); DOHLE BODIES PRESENT (NONE SEEN); OVALOCYTES 1+ (NORMAL); TOXIC VACUOLATION PRESENT (NONE SEEN)
[2017-05-20 19:55] LABS: FREE T4 1.44 NG/DL (0.76-1.46); TOTAL BILIRUBIN ADULT 4.4 MG/DL (0.2-1.0)
[2017-05-20 20:02] LABS: DIRECT BILIRUBIN ADULT 3.4 MG/DL (0.0-0.2); MAGNESIUM 1.1 MG/DL (1.5-2.5)
--- NOTE | 2017-05-20 20:45 | ECHRPT ---
Indication: SEPSIS, R/O ENDOCARDITIS CONCLUSIONS Normal left ventricular size and function Estimated Ejection Fraction 60% No wall motion abnormalities Wall thickness is normal. No significant valvulopathies No pericardial effusion BP: 71 / 35 HR: Rhythm: Sinus MEASUREMENTS (Male / Female) Normal Values Technical Quality:Fair 2D ECHO LV Diastolic Diameter PLAX 4.5 cm 4.2 - 5.9 / 3.9 - 5.3 cm LV Systolic Diameter PLAX 3.3 cm IVS Diastolic Thickness 0.7 cm 0.6 - 1.0 / 0.6 - 0.9 cm LVPW Diastolic Thickness 0.7 cm 0.6 - 1.0 / 0.6 - 0.9 cm LV Relative Wall Thickness 0.3 LVOT Diameter 1.9 cm Aortic Root Diameter 2.5 cm LA Systolic Diameter LX 1.6 cm 3.0 - 4.0 / 2.7 - 3.8 cm M-MODE AV Cusp Separation MM 2.1 cm DOPPLER AV Peak Velocity 124.0 cm/s AV Peak Gradient 6.2 mmHg AV Mean Gradient 4.0 mmHg AV Velocity Time Integral 17.6 cm LVOT Peak Velocity 92.7 cm/s LVOT Peak Gradient 3.4 mmHg LVOT Velocity Time Integral 14.6 cm AV Area Cont Eq vti 2.4 cm AV Area Cont Eq pk 2.1 cm Mitral E Point Velocity 71.3 cm/s Mitral A Point Velocity 59.8 cm/s Mitral E to A Ratio 1.2 LV E' Lateral Velocity 11.8 cm/s Mitral E to LV E' Lateral Ratio 6.0 LV E' Septal Velocity 8.5 cm/s Mitral E to LV E' Septal Ratio 8.4 TR Peak Velocity 229.0 cm/s TR Peak Gradient 21.0 mmHg Right Atrial Pressure 10.0 mmHg Pulmonary Artery Systolic Pressu 31.0 mmHg Right Ventricular Systolic Press 31.0 mmHg PV Peak Velocity 73.5 cm/s PV Peak Gradient 2.2 mmHg FINDINGS LEFT VENTRICLE Normal left ventricular size. Wall thickness is normal. The left ventricular systolic function is normal with an estimated ejection fraction in the range of 60-65%. RIGHT VENTRICLE Normal right ventricular size and systolic function. LEFT ATRIUM The left atrial size is normal. RIGHT ATRIUM The right atrial size is normal. ATRIAL SEPTUM Normal atrial septal thickness without atrial level shunting by limited color doppler interrogation. AORTA The aortic root and proximal ascending aorta are normal in size on limited imaging. MITRAL VALVE Trace mitral valve regurgitation. AORTIC VALVE Trileaflet aortic valve. No aortic valve stenosis or regurgitation. TRICUSPID VALVE Structurally normal tricuspid valve. No tricuspid valve stenosis or regurgitation. PULMONARY VALVE The pulmonary valve is not well visualized. VESSELS The inferior vena cava is normal in size. PERICARDIUM No pericardial effusion. Jim uG MD (Electronically Signed) Final Date:20 May 2017 20:44
[2017-05-20] MEDS ORDERED: MAGNESIUM SULFATE 1 GM PREMIX 100 ML IV SCH ×2 (21:00)
[2017-05-20] MEDS ORDERED: MAGNESIUM SULFATE 2 GM/NS 100 ML IV ONE ×4 (21:15)
--- NOTE | 2017-05-20 21:47 | MB ---
cc: EVAN GONZALEZ M.D. DATE OF CONSULTATION 05/20/2017 She is a 21-year-old seen in neurological consultation. HISTORY This young woman became acutely ill Saturday and today being Saturday. She describes that after volleyball game and she goes to the college here. She became acutely ill, felt nauseated and yesterday Saturday she gradually became more significantly ill, she has lost her urine output and she has had fevers. She is admitted today and describes that today she had major difficulty with walking and she had to slide downstairs from her apartment. PAST MEDICAL HISTORY She has no significant medical history. MEDICATIONS She does not take any medication. SOCIAL HISTORY She denies alcohol. Denies any recreational drugs. PHYSICAL EXAMINATION On exam she was awake, alert and oriented. She has some generalized myalgia aching complaints but no neck stiffness per se. Ocular movements and visual nassar were full. Pupils about same size, reactive. She has no facial weakness. Speech is minimally dysarthric due to her dry mucosa but no aphasia or obvious language dysfunction. She starts raising the arms and has generalized weakness. She starts flexing the knees. She is acutely ill and the exam is limited. She has trace reflexes at the elbows, but probably no reflexes at the knees and ankles. Plantar responses flexor. Perception to position sense normal in the distal lower extremities. Perception to touch seemed grossly normal throughout though the exam is somewhat limited. LABORATORY DATA Ancillary data WBC 14.0, hemoglobin 13.5, platelets 146. Toxicology urine negative. Urine rbc's 12. Urine wbc's 31. INR 2.0. D-dimer 13.97. Sodium 131, potassium 3.2, BUN 47, creatinine 6.5, AST 71, ALT 81. CPK 276. ASSESSMENT Acutely ill young woman probably from sepsis. Her neurologic syndrome raises the possibility of an associated Guillain-[place] syndrome. At this point she is being evaluated by the infectious disease and the electroencephalogram technologist. Depending upon clinical course will proceed with a lumbar puncture looking for cytology, proteins and gram stain cultures. I do not think that this is meningoencephalitis. I will follow the neurological course. She is scheduled for multiple imaging studies including a CT brain. Thank you for asking us to assist in her care. Evan Gonzalez MD OF[facility]/KK /5:21 PM /9:40 PM
--- NOTE | 2017-05-20 21:47 | MB ---
cc: EVAN GONZALEZ M.D. DATE OF CONSULTATION 05/20/2017 She is a 21-year-old seen in neurological consultation. HISTORY This young woman became acutely ill Saturday and today being Saturday. She describes that after volleyball game and she goes to the college here. She became acutely ill, felt nauseated and yesterday Saturday she gradually became more significantly ill, she has lost her urine output and she has had fevers. She is admitted today and describes that today she had major difficulty with walking and she had to slide downstairs from her apartment. PAST MEDICAL HISTORY She has no significant medical history. MEDICATIONS She does not take any medication. SOCIAL HISTORY She denies alcohol. Denies any recreational drugs. PHYSICAL EXAMINATION On exam she was awake, alert and oriented. She has some generalized myalgia aching complaints but no neck stiffness per se. Ocular movements and visual nassar were full. Pupils about same size, reactive. She has no facial weakness. Speech is minimally dysarthric due to her dry mucosa but no aphasia or obvious language dysfunction. She starts raising the arms and has generalized weakness. She starts flexing the knees. She is acutely ill and the exam is limited. She has trace reflexes at the elbows, but probably no reflexes at the knees and ankles. Plantar responses flexor. Perception to position sense normal in the distal lower extremities. Perception to touch seemed grossly normal throughout though the exam is somewhat limited. LABORATORY DATA Ancillary data WBC 14.0, hemoglobin 13.5, platelets 146. Toxicology urine negative. Urine rbc's 12. Urine wbc's 31. INR 2.0. D-dimer 13.97. Sodium 131, potassium 3.2, BUN 47, creatinine 6.5, AST 71, ALT 81. CPK 276. ASSESSMENT Acutely ill young woman probably from sepsis. Her neurologic syndrome raises the possibility of an associated Guillain-[place] syndrome. At this point she is being evaluated by the infectious disease and the leaf fat scraper. Depending upon clinical course will proceed with a lumbar puncture looking for cytology, proteins and gram stain cultures. I do not think that this is meningoencephalitis. I will follow the neurological course. She is scheduled for multiple imaging studies including a CT brain. Thank you for asking us to assist in her care. Evan Gonzalez MD OF[facility]/KK /5:21 PM /9:40 PM
--- NOTE | 2017-05-20 21:47 | MB ---
cc: EVAN GONZALEZ M.D. DATE OF CONSULTATION 05/20/2017 She is a 21-year-old seen in neurological consultation. HISTORY This young woman became acutely ill Saturday and today being Saturday. She describes that after volleyball game and she goes to the college here. She became acutely ill, felt nauseated and yesterday Saturday she gradually became more significantly ill, she has lost her urine output and she has had fevers. She is admitted today and describes that today she had major difficulty with walking and she had to slide downstairs from her apartment. PAST MEDICAL HISTORY She has no significant medical history. MEDICATIONS She does not take any medication. SOCIAL HISTORY She denies alcohol. Denies any recreational drugs. PHYSICAL EXAMINATION On exam she was awake, alert and oriented. She has some generalized myalgia aching complaints but no neck stiffness per se. Ocular movements and visual nassar were full. Pupils about same size, reactive. She has no facial weakness. Speech is minimally dysarthric due to her dry mucosa but no aphasia or obvious language dysfunction. She starts raising the arms and has generalized weakness. She starts flexing the knees. She is acutely ill and the exam is limited. She has trace reflexes at the elbows, but probably no reflexes at the knees and ankles. Plantar responses flexor. Perception to position sense normal in the distal lower extremities. Perception to touch seemed grossly normal throughout though the exam is somewhat limited. LABORATORY DATA Ancillary data WBC 14.0, hemoglobin 13.5, platelets 146. Toxicology urine negative. Urine rbc's 12. Urine wbc's 31. INR 2.0. D-dimer 13.97. Sodium 131, potassium 3.2, BUN 47, creatinine 6.5, AST 71, ALT 81. CPK 276. ASSESSMENT Acutely ill young woman probably from sepsis. Her neurologic syndrome raises the possibility of an associated Guillain-[place] syndrome. At this point she is being evaluated by the infectious disease and the switchboard operator receptionist. Depending upon clinical course will proceed with a lumbar puncture looking for cytology, proteins and gram stain cultures. I do not think that this is meningoencephalitis. I will follow the neurological course. She is scheduled for multiple imaging studies including a CT brain. Thank you for asking us to assist in her care. Evan Gonzalez MD OF[facility]/KK /5:21 PM /9:40 PM
--- NOTE | 2017-05-20 21:59 | HHI.HP ---
[facility] Service Critical Care Medicine Primary Care Physician Unknown Admission Diagnosis Acute renal failure, elevated liver enzymes, nausea, vomiting, diarr Diagnosis: Chief Complaint: diarrhea Travel History International Travel<30 Days: No Contact w/Intl Traveler <30 Da: No Traveled to Known Affected Are: No History of Present Illness Delayed Note Entry. Patient initially seen and evaluated around 11:45am in the emergency department. I made frequent re-assessments throughout the day. This is a 21yF with no remarkable past medical history who presents to the ER with a 3 day history of nausea, vomiting, and liquid diarrhea. The patient states that she ate a salad and chili 3 days [employer], and then approximately 8-12h later had onset of nausea and vomiting and soon after diarrhea. the emesis she describes as clear to somewhat brown, without blood, not coffee grounds, without a bilious appearance. she describes her diarrhea as completely watery, again without blood or dark black color. It is not associated with food. She endorses some generalized abdominal pain, but cannot point to any one area. She also endorses fever and chills over this time period. Denies chest pain, shortness of breath. She also endorses some "tingling" of her hands and feet, although this is difficult to describe, she does describe them as "weak" and "fatigued." She also states she has not urinated x 48h. In the emergency department, she was hypotensive and tachycardic which both responded to ivf. Her laboratory data is significant for leukocytosis to 14k, thrombocytopenia 140k, INR 2.0, elevated t bili at 5.5, Cr of > 6, lactate of almost 7, significant anion-gap metabolic acidosis. Critical care medicine is consulted to evaluate and manage her septic shock and multi-organ system dysfunction. Review of Systems Constitutional: COMPLAINS OF: Fatigue, Fever, Chills, DENIES: Diaphoretic episodes, Weight gain, Weight loss, Dizziness, Change in appetite, Night Sweats Endocrine: DENIES: Abnorml menstrual pattern, Heat/cold intolerance, Polydipsia , Polyuria, Polyphagia Eyes: DENIES: Blurred vision, Diplopia, Eye inflammation, Eye pain, Vision loss , Photosensitivity, Double Vision Ears, nose, mouth, throat: COMPLAINS OF: Throat pain, DENIES: Tinnitus, Hearing loss, Vertigo, Nasal discharge, Oral lesions, Hoarseness, Ear Pain, Running Nose, Epistaxis, Sinus Pain, Toothache, Odynophagia Respiratory: DENIES: Apneas, Cough, Snoring, Wheezing, Hemoptysis, Sputum production, Shortness of breath Cardiovascular: DENIES: Chest pain, Palpitations, Syncope, Dyspnea on Exertion , PND, Lower Extremity Edema, Orthopnea, Claudication Gastrointestinal: COMPLAINS OF: Abdominal pain, Diarrhea, Nausea, Vomiting, DENIES: Black stools, Bloody stools, Constipation, Difficulty Swallowing, Anorexia Genitourinary: DENIES: Abnormal vaginal bleeding, Dysmenorrhea, Dyspareunia, Sexual dysfunction, Urinary frequency, Urinary incontinence, Urgency, Hematuria , Dysuria, Nocturia, Vaginal discharge Musculoskeletal: COMPLAINS OF: Neck pain, DENIES: Joint pain, Muscle aches, Stiffness, Joint Swelling, Back pain Integumentary: DENIES: Abnormal pigmentation, Pruritus, Rash, Nail changes, Breast masses, Breast skin changes, Nipple discharge Hematologic/lymphatic: DENIES: Bruising, Lymphadenopathy Immunologic/allergic: DENIES: Eczema, Urticaria Neurologic: COMPLAINS OF: Localized weakness, DENIES: Abnormal gait, Headache, Paresthesias, Seizures, Speech Problems, Tremor, Poor Balance Psychiatric: DENIES: Anxiety, Confusion Past Family Social History Allergies: Coded Allergies: No Known Allergies (Unverified Allergy, Unknown, 05/20/17) Past Medical History none. currently menstruating, has regular cycles. Past Surgical History none. Reported Medications none. Active Ordered Medications See MAR Family History none. parents are alive and healthy. 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 sick contact, team mate who has upper respiratory symptoms international travel in January 2017 to [place], not an area endemic for [place]aria, did not eat fresh fruits/veggies, did not have any illness at that time no pets in the home never smoked, no etoh, no other illicit drugs. Physical Exam Vital Signs Vital Signs Date Time Temp Pulse Resp B/P (MAP) Pulse Ox O2 Delivery O2 Flow Rate FiO2 05/20/17 21:04 128 94/56 05/20/17 20:46 123 92/54 05/20/17 20:18 95 Nasal Cannula 2.00 05/20/17 20:00 99.1 124 29 114/58 (76) 98 93/61 (72) 05/20/17 20:00 124 05/20/17 19:00 Nasal Cannula 2.00 98 05/20/17 18:42 122 92/55 05/20/17 18:00 124 05/20/17 16:45 120 80/41 05/20/17 16:45 94 4.00 05/20/17 16:15 100 Nasal Cannula 4.00 05/20/17 16:00 98.9 122 18 81/52 (62) 90 05/20/17 16:00 93 Nasal Cannula 2.00 05/20/17 16:00 122 05/20/17 15:04 122 71/35 05/20/17 15:00 120 05/20/17 15:00 120 05/20/17 15:00 98.6 120 20 74/58 (63) 94 05/20/17 14:08 100.1 129 27 75/40 (52) 98 Nasal Cannula 3.00 05/20/17 10:40 140 32 85/43 (57) 96 2.00 05/20/17 10:40 138 34 89/46 (60) 100 Nasal Cannula 2.00 05/20/17 09:23 Nasal Cannula 2.00 05/20/17 08:59 40 Physical Exam gen: young female, lying in bed, in severe distress heent: nc. at. perrl. eomi. generalized tenderness to palpation over the neck. no neck stiffness. tenderness to flexion at the neck. negative kernig/ brudzinski. OP without exudates. mucous membranes dry. neck: trachea midline. no jvd. chest: tachypneic. clear to auscultation cv: tachycardic rate, regular rhythm. sinus by tele. abd: soft, mild generalized tenderness to palpation diffusely, no guarding, rebound. nondistended. no hepatosplenomegaly. extr: cool and poorly perfused. distal pulses thready. delayed cap refill. neuro: subjectively weak but objectively THIAGO 4+/5 in all extremities globally, and somewhat volitional. Also at the time with SBP in the 70s, so difficult to actively complete exam. sensation grossly intact. CN 2-12 grossly intact. Laboratory Laboratory Tests Test 05/20/17 09:30 05/20/17 09:40 05/20/17 10:55 05/20/17 12:35 White Blood Count 14.0 Red Blood Count 4.46 Hemoglobin 13.5 Hematocrit 41.3 Mean Corpuscular Volume 92.7 Mean Corpuscular Hemoglobin 30.3 Mean Corpuscular Hemoglobin Concent 32.7 Red Cell Distribution Width 12.9 Platelet Count 146 Mean Platelet Volume 10.0 Neutrophils (%) (Auto) 95.7 Lymphocytes (%) (Auto) 2.1 Monocytes (%) (Auto) 1.7 Eosinophils (%) (Auto) 0.4 Basophils (%) (Auto) 0.1 Neutrophils # (Auto) 13.4 Lymphocytes # (Auto) 0.3 Monocytes # (Auto) 0.2 Eosinophils # (Auto) 0.1 Basophils # (Auto) 0.0 CBC Comment AUTO DIFF Differential Total Cells Counted 100 Neutrophils % (Manual) 25 Band Neutrophils % 16 Lymphocytes % 2 Monocytes % 2 Neutrophils # (Manual) 13.4 Metamyelocytes 54 Myelocytes 1 Differential Comment FINAL DIFF MANUAL Toxic Granulation 1+ Toxic Vacuolation PRESENT Dohle Bodies PRESENT Platelet Estimate NORMAL Platelet Morphology Comment NORMAL Blood Smear Pathologist Review Prothrombin Time 22.3 Prothromb Time International Ratio 2.0 Activated Partial Thromboplast Time 34.0 D-Dimer Quantitative (PE/DVT) 13.97 Blood Urea Nitrogen 47 Creatinine 6.52 Random Glucose 93 Total Protein 7.2 Albumin 3.3 Calcium Level 8.0 Alkaline Phosphatase 64 Aspartate Amino Transf (AST/SGOT) 71 Alanine Aminotransferase (ALT/SGPT) 81 Total Bilirubin 5.5 Sodium Level 131 Potassium Level 3.2 Chloride Level 93 Carbon Dioxide Level 16.0 Anion Gap 22 Estimat Glomerular Filtration Rate 10 Total Creatine Kinase 276 Creatine Kinase MB 1.1 Creatine Kinase MB % 0.4 Salicylates Level LESS THAN 1.7 Acetaminophen Level LESS THAN 2.0 Ethyl Alcohol Level LESS THAN 3 Monoscreen NEG Haptoglobin 134 Serum Osmolality 286 Lactate Dehydrogenase 229 Hepatitis A IgM Antibody NEGATIVE Hepatitis B Surface Antigen NEGATIVE Hepatitis B Core IgM Antibody NEGATIVE Hepatitis C Antibody NEGATIVE Blood Gas Puncture Site RT RADIAL Blood Gas Patient Temperature 98.6 Blood Gas HCO3 11 Blood Gas Base Excess -14.2 Blood Gas Oxygen Saturation 95 Arterial Blood pH 7.30 Arterial Blood Partial Pressure CO2 23 Arterial Blood Partial Pressure O2 92 Arterial Blood Oxygen Content 15.2 Arterial Blood Carboxyhemoglobin 0.6 Arterial Blood Methemoglobin 0.6 Blood Gas Hemoglobin 11.3 Oxygen Delivery Device NASAL CANNULA Blood Gas Liter Flow 2 Test 05/20/17 13:30 05/20/17 13:40 05/20/17 14:00 05/20/17 16:40 Eosinophil Stool Smear NONE SEEN Stool C. difficile Toxin (PCR) NEGATIVE Stl C. difficile Toxin Epiderm 027 PRESUMPTIVE NEGATIVE Lactic Acid Level 6.8 Urine Color DARK-YELLOW Urine Turbidity CLOUDY Urine pH 5.5 Urine Specific [employer] 1.020 Urine Protein 100 Urine Glucose (UA) NEG Urine Ketones NEG Urine Occult Blood MOD Urine Nitrite NEG Urine Bilirubin MOD Urine Urobilinogen LESS THAN 2.0 Urine Leukocyte Esterase MOD Urine RBC 12 Urine WBC 31 Urine Squamous Epithelial Cells 1 Urine Amorphous Sediment RARE Urine Bacteria MANY Urine Hyaline Casts 19 Microscopic Urinalysis Comment CULTURE INDICATED Urine Eosinophils NONE SEEN Urine Osmolality 324 Urine Random Creatinine 351.6 Urine Random Sodium 31 Urine Opiates Screen NEG Urine Barbiturates Screen NEG Urine Amphetamines Screen NEG Urine Benzodiazepines Screen NEG Urine Cocaine Screen NEG Urine Cannabinoids Screen NEG Blood Gas Puncture Site CEASAR Blood Gas Patient Temperature 98.6 Blood Gas HCO3 11 Blood Gas Base Excess -14.9 Blood Gas Oxygen Saturation 95 Arterial Blood pH 7.25 Arterial Blood Partial Pressure CO2 26 Arterial Blood Partial Pressure O2 98 Arterial Blood Oxygen Content 13.8 Arterial Blood Carboxyhemoglobin 0.6 Arterial Blood Methemoglobin 0.9 Blood Gas Hemoglobin 10.3 Oxygen Delivery Device NASAL CANNULA Blood Gas Liter Flow 4 Test 05/20/17 16:45 05/20/17 16:50 05/20/17 19:15 05/20/17 20:50 Nasal Screen MRSA (PCR) MRSA NOT DETECTED White Blood Count 13.6 Red Blood Count 3.63 Hemoglobin 10.6 Hematocrit 32.7 Mean Corpuscular Volume 90.1 Mean Corpuscular Hemoglobin 29.3 Mean Corpuscular Hemoglobin Concent 32.6 Red Cell Distribution Width 12.8 Platelet Count 108 Mean Platelet Volume 10.0 Neutrophils (%) (Auto) 96.1 Lymphocytes (%) (Auto) 1.3 Monocytes (%) (Auto) 1.4 Eosinophils (%) (Auto) 1.0 Basophils (%) (Auto) 0.2 Neutrophils # (Auto) 13.1 Lymphocytes # (Auto) 0.2 Monocytes # (Auto) 0.2 Eosinophils # (Auto) 0.1 Basophils # (Auto) 0.0 CBC Comment AUTO DIFF Differential Total Cells Counted 100 Neutrophils % (Manual) 51 Band Neutrophils % 30 Lymphocytes % 1 Monocytes % 2 Neutrophils # (Manual) 13.2 Metamyelocytes 14 Myelocytes 2 Differential Comment FINAL DIFF MANUAL Toxic Vacuolation PRESENT Dohle Bodies PRESENT Platelet Estimate LOW Platelet Morphology Comment ENLARGED Ovalocytes 1+ Reina Cells 1+ Erythrocyte Sedimentation Rate 25 Fibrinogen 426 Potassium Level 3.8 Lactic Acid Level 5.3 Magnesium Level 1.1 Total Bilirubin 4.4 Direct Bilirubin 3.4 Indirect Bilirubin 1.0 Total Creatine Kinase 620 Creatine Kinase MB 12.1 Creatine Kinase MB % 2.0 C-Reactive Protein 16.60 Vitamin B12 Level 1312 Free Thyroxine 1.44 Thyroid Stimulating Hormone 3rd Gen 1.550 Total Protein 4.7 Blood Gas Puncture Site ART LINE Blood Gas Patient Temperature 98.6 Blood Gas HCO3 13 Blood Gas Base Excess -12.2 Blood Gas Oxygen Saturation 96 Arterial Blood pH 7.27 Arterial Blood Partial Pressure CO2 30 Arterial Blood Partial Pressure O2 119 Arterial Blood Oxygen Content 14.2 Arterial Blood Carboxyhemoglobin 0.8 Arterial Blood Methemoglobin 1.0 Blood Gas Hemoglobin 10.3 Oxygen Delivery Device NASAL CANNULA Blood Gas Liter Flow 2 Date/Time Source Procedure Growth Status 05/20/17 16:50 Blood Peripheral Aerobic Blood Culture Pending Received 05/20/17 16:50 Blood Peripheral Anaerobic Blood Culture Pending Received 05/20/17 13:30 Stool Stool Cyclospora Exam Pending Resulted 05/20/17 13:30 Stool Stool Cryptosporidium Exam Pending Resulted 05/20/17 13:30 Stool Stool Stool Pus (KEYANA) - Final NO WBC'S SEEN Resulted 05/20/17 13:30 Stool Stool Giardia Antigen (KEYANA) Pending Resulted 05/20/17 09:40 Throat Group A Streptococcus Screen Pending Received 05/20/17 14:00 Urine Random Urine Urine Culture Pending Received Result Diagram: 05/20/17 1650 05/20/17 1650 Imaging Last Impressions Neck CT 05/20/17 1633 Signed Impressions: Service Date/Time: Saturday, May 20, 2017 17:26 - CONCLUSION: 1. Limited evaluation secondary to lack of intravenous contrast. No masses are identified 2. Nonspecific slightly enlarged nodes in group 2 on the right Isma Randhawa MD Chest CT 05/20/17 1633 Signed Impressions: Service Date/Time: Saturday, May 20, 2017 17:29 - CONCLUSION: Patchy airspace disease both lung base is without pleural effusion. Zeus Pulido MD FACR Abdomen/Pelvis CT 05/20/17 1633 Signed Impressions: Service Date/Time: Saturday, May 20, 2017 17:29 - CONCLUSION: Limited exam without oral intravenous contrast. There is no free air. Do not see evidence for an abscess.. Zeus Pulido MD FACR Chest X-Ray 05/20/17 0930 Signed Impressions: Service Date/Time: Saturday, May 20, 2017 09:45 - CONCLUSION: No acute disease. Zeus Pulido MD FACR Abdomen Ultrasound 05/20/17 0000 Signed Impressions: Service Date/Time: Saturday, May 20, 2017 12:08 - CONCLUSION: Scattered small hyperechoic nonspecific there is left lobe of the liver. There are no gallstones. CT scan with contrast may be of benefit. Zeus Pulido MD FACR Caprini VTE Risk Assessment Caprini VTE Risk Assessment: Mod/High Risk (score >= 2) Caprini Risk Assessment Model Point Value = 1 Point Value = 2 Point Value = 3 Point Value = 5 Age 41-60 Minor surgery BMI > 25 kg/m2 Swollen legs Varicose veins or History of unexplained or recurrent spontaneous Oral contraceptives or hormone replacement Sepsis (< 1 month) Serious lung disease, including pneumonia (< 1 month) Abnormal pulmonary function Acute myocardial infarction Congestive heart failure (< 1 month) History of inflammatory bowel disease Medical patient at bed rest Age 61-74 Arthroscopic surgery Major open surgery (> 45 min) Laparoscopic surgery (> 45 min) Malignancy Confined to bed (> 72 hours) Immobilizing plaster cast Central venous access Age >= 75 History of VTE Family history of VTE Factor V Leiden Prothrombin [id number] Lupus anticoagulant Anticardiolipin antibodies Elevated serum homocysteine Heparin-induced thrombocytopenia Other congenital or acquired thrombophilia Stroke (< 1 month) Elective arthroplasty Hip, pelvis, or leg fracture Acute spinal cord injury (< 1 month) Prophylaxis Regimen Total Risk Factor Score Risk Level Prophylaxis Regimen 0-1 Low Early ambulation 2 Moderate Order ONE of the following: *Sequential Compression Device (SCD) *Heparin 5000 units SQ BID 3-4 Higher Order ONE of the following medications: *Heparin 5000 units SQ TID *Enoxaparin/Lovenox 40 mg SQ daily (WT < 150 kg, CrCl > 30 mL/min) *Enoxaparin/Lovenox 30 mg SQ daily (WT < 150 kg, CrCl > 10-29 mL/min) *Enoxaparin/Lovenox 30 mg SQ BID (WT < 150 kg, CrCl > 30 mL/min) AND/OR *Sequential Compression Device (SCD) 5 or more Highest Order ONE of the following medications: *Heparin 5000 units SQ TID (Preferred with Epidurals) *Enoxaparin/Lovenox 40 mg SQ daily (WT < 150 kg, CrCl > 30 mL/min) *Enoxaparin/Lovenox 30 mg SQ daily (WT < 150 kg, CrCl > 10-29 mL/min) *Enoxaparin/Lovenox 30 mg SQ BID (WT < 150 kg, CrCl > 30 mL/min) AND *Sequential Compression Device (SCD) Assessment and Plan Assessment and Plan Assessment: 21yF otherwise healthy who presents in near-extremis with multi- organ dysfunction, septic shock, likely DIC associated with septic shock, severe anuric acute kidney injury, acute liver dysfunction. This all appears to be secondary to an infectious process, and most likely of GI origin such as enterotoxigenic E. Coli, enterohemorrhagic E. Coli, Shigella, Campylobacter. I ordered Infectious Disease consultation to assist in the work-up and management. Her generalized weakness is concerning for possible GBS, and I have ordered Neurology consultation as well. GI consult to assist in the work-up for diarrhea, and Nephrology given the severity of her acute kidney injury and she may require emergent renal replacement therapy in the near future. HUS is also a possibility, and although she has no Schistocytes, it is in the differential, and we will ask hematology to weigh in on further work-up for her coagulopathy. She remains very critically ill at this time. We will support her end organ perfusion and attempt to reverse the course of her shock state as we allow for cultures to result, laboratory data to result, and antibiotics empirically. Narrative Hospital Course: Due to her worsening shock, I placed arterial and central lines. after 6 L crystalloid fluid, I started norepinephrine, which was rapidly titrated up to 30 mcg/min without achieving a map goal of 65 mmHg. I added vasopressin at 0.04 units/min. I then performed bedside critical care ultrasound which demonstrated global early myocardial stunning with a moderately depressed LV systolic function, a completely decompressed RV with preserved function, a flat IVC, no pericardial effusion. I added an additional liter of crystalloid and ordered a formal follow-up echocardiogram to assess cardiac function. I started dobutamine initially at 5 mcg/min which improved her blood pressure, but caused a significant tachycardia, so this was dropped to 2.5 mcg/kg/min. At ID recommendation, we went down for stat CT chest/abd/ pelvis which did not demonstrate a surgical source of her infection. Although she does have a significant Anion-gap metabolic acidosis, this does not entirely account for her severe acidosis, and given the severity of her diarrhea , she is likely losing a large quantity of bicarbonate to her stool losses, so a sodium bicarbonate drip was initiated as well as ongoing maintenance resuscitation. I discussed the care with nephrology, and since the lactate is slightly downtrending, we will hold on emergent dialysis, but if her pH fails to improve, will start early renal replacement therapy. Neurology evaluated the patient and agrees that GBS is a possibility, but also feels that her exam is most consistent with a global fatigue/weakness picture as opposed to a new ascending paralysis. will continue frequent neuro checks and monitor her strength. Plan by systems: Neurologic: Extremity Weakness Neck pain - tylenol as needed for pain - neuro consult - frequent neuro checks - watch closely for Guillain Eskridge syndrome Respiratory: - wean o2 by NC for spo2 > 92% Cardiovascular: Septic Shock Myocardial Stunning secondary to septic shock - trend cvp - mivf @ 125cc/hr - dobutamine at 2.5 mcg/kg/min - vasopressin at 0.04 units/min - levophed titrated for goal map > 65 mmHg - f/u 2d echo Renal: Severe oligoanuric Acute Kidney Injury - consult nephrology - may progress to requiring renal replacement therapy - daily bmp -- Strict I/Os - place saavedra for strict q1h uop - renal ultrasound - urine electrolytes, eos FEN/GI: Acute intravascular volume depletion Suspected infectious diarrhea Acute liver dysfunction Hyponatremia Hypkalemia Hypocalcemia Anion-gap Metabolic Acidosis Lactic Acidosis - liver ultrasound - trend LFTs - GI consult to assist with hepatic dysfunction and diarrhea - replace K, Ca - sodium low likely hypovolemic, hyponatremia - mivf NS @ 125cc/hr - sodium bicarb drip @ 150cc/hr. - daily BMP, LFT - serial abg Heme/ID: Leukocytosis Probable Infectious Diarrhea Septic Shock Thrombocytopenia Acute Coagulopathy Disseminated Intravascular Coagulation - hematology consult - 4T score low probability for HIT - thrombocytopenia likely combination early DIC with consumption/severe sepsis - elevated INR combination early DIC and hepatic dysfunction - trend daily CBC and coags. - Cefepime, flagyl, daptomycin - vazquez culture - f/u stool studies - peripheral smear Endocrine: Hyperglycemia of critical illness -- SSI, med scale, q6h - will hold off on stress dose steroids at this time. patient is clearly in a vigorous SIRS response and does not clinically appear to be adrenally insufficient. secondary mortality is higher with empiric stress dose steroids, so we will hold off for now. If she becomes worseningly hypotensive, particularly when her diurnal intrinsic cortisol levels fall, we will start empiric stress dose steroids. Prophylaxis: GI Prophylaxis pepcid iv DVT Prophylaxis -- SCDs -- SQH. if platelet count drops or coagulpathy worsens, will hold pharmacologic DVT prophylaxis. Lines: - 1030 left radial art line - 10/30 left SC TLC - Saavedra Dispo: Admit to ICU. very critically ill. This patient remains critically ill with one or more organ systems which are or may become a threat to life. I have spent in excess of 150 minutes discontinuously in the care and management of this patient. This time includes frequent reevaluation's throughout the day, the time I spent at bedside managing this critically ill patient while she was in extremis. This time is exclusive of procedures, and includes, but is not limited to, evaluation of the patient, review of the medical record, discussions with family, consultants, nursing staff, or respiratory therapy, and documentation in the medical record. Code Status Full Code Discussed Condition With Dr. Radha Chakraborty, Dr. Kaur, patient, mother, field hockey and lacrosse coach, Dr. Shirley, Dr. Ring, STAFF GENETIC COUNSELOR at bedside, [employer] CONSULTANT at Bedside. Ricardo Knight MD May 20, 2017 21:59
[2017-05-20] MEDS ORDERED: CALCIUM GLUCONATE INJ 3 GM in SODIUM CHLORIDE 0.9% INJ 100 ML IV ONE ×4 (22:00)
[2017-05-20] MEDS ORDERED: ALBUMIN 5% INJ 500 ML IV ONE ×2 (22:00)
--- NOTE | 2017-05-20 22:00 | PD.PROCEDR ---
Procedure Note Procedure Procedure: Arterial Line Placement Left radial arterial line Diagnosis: Septic shock Indications: Need for beat to beat hemodynamic monitoring Consent: Obtained Description of the Procedure: The left wrist was prepped and draped sterilely. 1% lidocaine was used for local anesthesia. Ultrasound guidance was used for this procedure. The left radial artery was identified under ultrasound. The vascular anatomy of the left wrist was normal. The artery was located under direct real-time visualization and a needle was advanced into the artery. A 20 gauge, 12 cm catheter was advanced into the artery using a modified Seldinger technique. The catheter was sutured to the skin and a sterile dressing was applied. The catheter was connected to a pressure transducer and an arterial waveform was noted. There were no immediate complications noted. There was minimal EBL. I personally performed the procedure. Ricardo Knight MD May 20, 2017 22:00
--- NOTE | 2017-05-20 22:01 | PD.PROCEDR ---
Procedure Note Procedure Central Line Procedure Note Left subclavian 7 [place]an 20 cm triple lumen catheter Diagnosis: Septic shock Indications: Need for central pressure monitoring and highly potent vasoactive substances Consent: Obtained Anesthesia: 1% lidocaine locally Description of the Procedure: The patient was placed in the supine, mild- Trendelenburg position. The area was prepped and draped sterilely. A 19g needle was inserted under negative pressure aspiration and dark venous blood was obtained. A guidewire was inserted easily without resistance. A small incision was made using a #11 blade. Using a modified Seldinger technique, the dilator and 7 [place]an, 20 cm catheter were advanced over the guidewire without resistance. All ports were aspirated and flushed, and had brisk blood return. The line was secured at the skin using 2-0 silk interrupted sutures. A Biopatch and Transparent sterile dressing were applied. There were no immediate complications noted. There was minimal EBL. The patient tolerated the procedure well. Ultrasound guidance was not used for this procedure A Chest x-ray has been ordered. I personally performed the procedure. Ricardo Knight MD May 20, 2017 22:01
--- NOTE | 2017-05-20 22:01 | PD.PROCEDR ---
Procedure Note Procedure Central Line Procedure Note Left subclavian 7 New Zealander 20 cm triple lumen catheter Diagnosis: Septic shock Indications: Need for central pressure monitoring and highly potent vasoactive substances Consent: Obtained Anesthesia: 1% lidocaine locally Description of the Procedure: The patient was placed in the supine, mild- Trendelenburg position. The area was prepped and draped sterilely. A 19g needle was inserted under negative pressure aspiration and dark venous blood was obtained. A guidewire was inserted easily without resistance. A small incision was made using a #11 blade. Using a modified Seldinger technique, the dilator and 7 [place] Zealander, 20 cm catheter were advanced over the guidewire without resistance. All ports were aspirated and flushed, and had brisk blood return. The line was secured at the skin using 2-0 silk interrupted sutures. A Biopatch and Transparent sterile dressing were applied. There were no immediate complications noted. There was minimal EBL. The patient tolerated the procedure well. Ultrasound guidance was not used for this procedure A Chest x-ray has been ordered. I personally performed the procedure. Ricardo Knight MD May 20, 2017 22:01
[2017-05-20] MEDS: CHLORHEXIDINE GLUCONATE 2 % 1 PACK (2 CLOTHS) TOP SCH ×2 (23:27)
[2017-05-21] VITALS (14 sets, daily range): BP systolic 89–132; BP diastolic 51–75; PULSE 99–127; RESP 24–35; TEMP 98.8–100; O2SAT 94–99
[2017-05-21] MEDS: NOREPINEPHRINE-DEXTROSE DRIP 250 ML IV PRN ×2 (00:13)
[2017-05-21] MEDS: SODIUM BICARBONATE 8.4% INJ 150 MEQ in DEXTROSE 5% IN WATE 1000ML INJ 1,000 ML IV SCH ×20 (00:14→21:10)
[2017-05-21] MEDS: metroNIDAZOLE 500 MG INJ 100 ML IV SCH ×6 (00:15→15:34)
[2017-05-21] MEDS: HEPARIN SODIUM - SQ 10,000 UNITS/ML VIAL SQ SCH ×4 (01:58→13:59)
[2017-05-21] MEDS: SODIUM CHLOR 0.9% 1000 ML INJ 1,000 ML IV SCH ×8 (04:01→21:10)
[2017-05-21 04:53] LABS: HEMATOCRIT 27.9 % (35.0-46.0); HEMOGLOBIN 9.8 GM/DL (11.6-15.3); MEAN CELL VOLUME 89.2 FL (80.0-100.0); MEAN CORPUSCULAR HEMOGLOBIN 31.2 PG (27.0-34.0); MEAN PLATELET VOLUME 9.8 FL (7.0-11.0); PLATELET COUNT 76 TH/MM3 (150-450); RED BLOOD COUNT 3.13 MIL/MM3 (4.00-5.30); RED CELL DISTRIBUTION WIDTH 13.1 % (11.6-17.2); WHITE BLOOD COUNT 8.4 TH/MM3 (4.0-11.0)
[2017-05-21 05:29] LABS: ALBUMIN 2.4 GM/DL (3.4-5.0); BICARBONATE 18.7 MEQ/L (21.0-32.0); CALCIUM 6.4 MG/DL (8.5-10.1); CREATININE 3.37 MG/DL (0.50-1.00); DIRECT BILIRUBIN ADULT 2.7 MG/DL (0.0-0.2)
--- NOTE | 2017-05-21 05:30 | MB ---
cc: JACQUES MARIA M.D. DATE OF CONSULTATION 05/20/2017 HISTORY OF PRESENT ILLNESS A 21-year-old right-handed woman without any significant past medical history. 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 She had been feeling fine but then on Saturday she had nausea, vomiting, fever to 101 and then came in last evening, had some tingling in her legs, pins and needles and also some tingling and numbness feeling in her hands. She feels like she is generally weak, tells me she cannot lift her head up off the bed, she is too weak for that. She has sore throat, cough, feeling generally weak. Evidently a player had Strep throat. REVIEW OF SYSTEMS She denies any history of hypertension, diabetes, hypercholesterolemia, total with the heart, irregular heart rhythm, renal, hepatic or pulmonary disease, thyroid disease lupus, ulcer, cancer seizure, stroke. SOCIAL HISTORY She is not a nonsmoker drinker, no drugs. Lives with her teammates. FAMILY HISTORY Negative for cancer, seizure or stroke. MEDICATIONS No known medicines. ALLERGIES No known drug allergies. CURRENT MEDICATIONS 1. Daptomycin. 2. Vasopressin. 3. Dobutamine. 4. Cefepime. 5. Metronidazole. 6. Subcu heparin 5000 q. 12. 7. She had a dose of ibuprofen. PHYSICAL EXAMINATION VITAL SIGNS: 100.1 temperature, pulse 138, blood pressure 89/46, even as low as 71/35. This was on admission to the hospital at 09:00 a.m. this morning HEENT: Pupils are equal. Visual nassar are full. Extraocular movement intact without nystagmus. Face is symmetric with normal sensation. Tongue was midline. Buccal muscles were normal. Eye closure strength was normal. NEUROLOGICAL EXAMINATION: Initially she said she could not keep her head up off the pillow including even to lift it up but by the end of my exam she did lift it up and appeared to have normal strength in the neck flexors bilaterally. Neck was supple. Full range of motion. Best Testing - She had normal strength in bilateral deltoids. Initially the left triceps and biceps appeared weaker by the end of my exam I rechecked it and she had normal strength there in both the left biceps, triceps and now she had normal strength in bilateral upper and lower extremities including biceps, triceps, deltoids, finger extensors, FDI, ATB, ADM. Bilateral lower extremity best testing - Iliopsoas, hamstrings, quads, tibialis anterior, toe extensors and flexors, gastroc - all appear to have normal strength in the bed. DTRs are absent throughout upper and lower extremities bilaterally. There is no ankle clonus. Tone was normal throughout. Toes downgoing bilaterally. Vibratory sense, proprioception and pinprick are intact in upper and lower extremities bilaterally. LABORATORY DATA White count is 13.6, hematocrit is 32, platelet count 108 - had been 146. ABGs - 7.30, 23, 92. Repeat 7.25, 26, 98. Hepatitis screen is negative. Mononucleosis screen is negative. HIV pending. Urine drug screen was negative. Alcohol normal. UA - 100 protein, moderate leuko esterase, 31 white cells. O2 sats in the ABG 95%. Basic metabolic profile - lactic acid 5.3, had been 6.8. CPK 620. LDH is normal. Serum osm was 286. Sodium is 131, creatinine 6.5, BUN 47. LFTs moderately elevated. Albumin 3.3, protein 7.2, INR is 2. Peripheral blood smear consistent with an infectious process or reactive process. Flu antigen negative for flu A and B. Strep screen negative for strep antigen. Blood cultures are pending. IMPRESSION I do not see any definite weakness or numbness at this time. She has had some paresthesias. She does not have any reflexes and she could have some very early Guillain-Jim Thorpe, but she has been rather ill, acidotic and it could be more from that along with her renal failure at this time. RECOMMENDATIONS I would hold off treating her Guillain-Jim Thorpe at this time and I will monitor her, see her in the morning and if she has any weakness at that time we could consider more aggressive treatment for possible Guillain-Jim Thorpe. However, at this time I would not say that she definitely has it. I have a mild suspicion for it considering all of her other medical problems. I defer to the med team if she needs to be on subcu heparin with the elevated coagulation studies. We will check some additional blood work on her. I note she has also had some diarrhea here. I might mention she might be positive for Campylobacter, although I do not see that here in what labs are back. MD DAHLIA Díaz/YANELI /5:50 PM /4:59 AM
[2017-05-21 05:32] LABS: CALCIUM-PROTEIN CORRECTED 7.5 MG/DL (8.5-10.1); INDIRECT BILIRUBIN 0.7 MG/DL (0.0-0.8); TOTAL BILIRUBIN ADULT 3.4 MG/DL (0.2-1.0); TOTAL PROTEIN 4.8 GM/DL (6.4-8.2)
[2017-05-21] MEDS: ONDANSETRON HCL 4 MG/2 ML VIAL IV PUSH PRN ×2 (05:56)
[2017-05-21] MEDS: VASOPRESSIN INJ 40 UNITS in DEXTROSE 5% IN WATER 100ML INJ 98 ML IV SCH ×8 (05:57→22:42)
[2017-05-21 06:14] LABS: MAGNESIUM 1.6 MG/DL (1.5-2.5); PHOSPHORUS 3.5 MG/DL (2.5-4.9)
[2017-05-21] MEDS ORDERED: ALBUMIN 5% INJ 500 ML IV ONE ×2 (06:15)
[2017-05-21] MEDS ORDERED: POTASSIUM CHLOR 40 MEQ PREMIX 100 ML IV ONE ×2 (06:15)
[2017-05-21] MEDS ORDERED: HALOPERIDOL LACTATE 5 MG/ML AMP IV PUSH ONE ×2 (06:15)
--- NOTE | 2017-05-21 06:24 | MB ---
cc: HERMELINDA VINCENT M.D. DATE OF CONSULTATION 05/20/2017 REASON FOR CONSULTATION Consult requested by infectious disease doctor, Dr. Chakraborty, for evaluation of thrombocytopenia in a patient who is admitted with septic shock. HISTORY OF PRESENT ILLNESS Sarah is a 21-year-old very pleasant female. 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 She states that three days ago days ago she played a game and when she came back home she was not feeling well. She started having some nausea and vomiting. She had anorexia. She was unable to eat anything but she stated that she knew needed to keep herself hydrated and she was trying to drink water and fluids. She started having profuse diarrhea on Saturday which continued up until yesterday. Subsequently she noted fever of 101.4. She decided to come to the emergency room today. In the emergency room the patient was evaluated by Dr. Magdy Kaur. The blood workup revealed acute renal failure with a creatinine of 6.52 and GFR of 10. She was also found to have elevated liver enzymes and hypotension. Her liver enzymes are also elevated. The patient is now admitted to the Intensive Care Unit under the care of health tech. Dr. Chakraborty from Infectious Disease was consulted. She has started her on antibiotic as she is in septic shock. The patient has been getting fluid resuscitation. She is awake, alert. She is currently getting echocardiogram and the preliminary results do not show any vegetations per vending technician. Her admission CBC showed a white count of 14, hemoglobin 13.5, hematocrit 41.3, platelet count is 146. The differential count is significant for neutrophilia with bandemia, toxic vacuolation and Dohle bodies consistent with sepsis. The comprehensive metabolic profile is abnormal with a sodium of 131, potassium 3.2, chloride is 93, bicarb is 16, BUN is 47, creatinine 6.52, GFR is 10, calcium is 8. Total bilirubin is 5.5, AST 71, ALT is 81. CPK is 276, albumin is 3.3. Lactic acid is elevated at 229. HIV is pending. The hepatitis panel is negative. REVIEW OF SYSTEMS The rest of the review of systems is negative. PAST MEDICAL HISTORY None. PAST SURGICAL HISTORY None. ALLERGIES None. MEDICATIONS PRIOR TO COMING THE HOSPITAL None. FAMILY HISTORY Noncontributory. SOCIAL HISTORY The patient does not smoke cigarettes, does not drink alcohol. 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 PHYSICAL EXAMINATION GENITALIA: This is a well-developed, well-nourished Afro-Dutch female in no apparent distress. VITAL SIGNS: Temperature 101.1, heart rate is 129, respiratory rate is 27, blood pressure 75/40, O2 saturation 98%. She is on 3 liters nasal cannula. HEENT: PERRLA, EOMI. Sclerae deeply icteric. Oral mucosa is dry. NECK: No lymphadenopathy noted. LUNGS: Clear. No wheezing, rhonchi or rales. HEART: Tachycardia with no murmur. ABDOMEN: Soft, diffusely tender. EXTREMITIES: No pedal edema. NEUROLOGY: Awake, alert, oriented x3. SKIN: No significant lesions are noted. ASSESSMENT 1. Thrombocytopenia due to sepsis and possible DIC. 2. No evidence of microangiopathic hemolytic anemia. 3. Septic shock. 4. Acute renal failure and liver failure due to septic shock. 5. Nausea, vomiting, diarrhea, the etiology of which is unknown. It looks like she may have developed some sort of GI infection. Stool cultures have been sent. Blood cultures have been sent; the results still pending. The urine culture also has been sent and results of that is still pending. RECOMMENDATIONS I have reviewed the peripheral smear with the hematopathologist, Dr. Mosqueda. The patient has neutrophilia with left shift consistent with sepsis. She has mild thrombocytopenia. No evidence of schistocytes noted. She does not have any evidence of hemolysis. The LDH is normal. The serum haptoglobin is normal. There is no evidence of microangiopathic hemolytic anemia noted such as HUS or TTP. Her bilirubin is elevated due to shock liver. I will ask the lab to do fractionation of the total bilirubin. I expect the direct bilirubin would be high which is due to the hepatocellular disease and not from the hemolysis. The patient is a perfect setup for DIC. Her INR is 2.0, APTT is 34 and fibrinogen is 426 with a D-dimer of 13.97. We will monitor her coags and when her fibrinogen drops below 100 she will be given cryoprecipitate. At this time the INR is elevated due to shock liver. I expect her platelet count to go down before it will improve back to normal due to her current septic shock syndrome. The patient also underwent ultrasound of the abdomen and there is no evidence of hydronephrosis noted. There are scattered small hyperechoic nonspecific lesions noted in the left lobe of the liver her. There are no gallstones. The chest x-ray is negative. She also underwent CAT scan of the neck, chest, abdomen and pelvis without IV contrast which does not show any significant findings. I have discussed the case with Dr. Chakraborty. Further recommendations are based on her hospital stay. Thank you for asking my opinion. MD JASIEL Cardenas/YANELI /6:29 PM /6:07 AM DIEGO
[2017-05-21] MEDS ORDERED: CALCIUM GLUCONATE INJ 3 GM in SODIUM CHLORIDE 0.9% INJ 100 ML IV ONE ×8 (06:30→15:15)
[2017-05-21] MEDS: MAGNESIUM SULFATE 1 GM PREMIX 100 ML IV SCH ×4 (06:31→08:55)
--- NOTE | 2017-05-21 07:06 | HHI.CCPN ---
Subjective Remarks/Hospital Course Hospital Course: This is a 21yF with no remarkable past medical history who presents to the ER with a 3 day history of nausea, vomiting, and liquid diarrhea. The patient states that she ate a salad and chili 3 days REGISTERED NURSE FLOAT POOL, and then approximately 8-12h later had onset of nausea and vomiting and soon after diarrhea. the emesis she describes as clear to somewhat brown, without blood, not coffee grounds, without a bilious appearance. she describes her diarrhea as completely watery, again without blood or dark black color. It is not associated with food. She endorses some generalized abdominal pain, but cannot point to any one area. She also endorses fever and chills over this time period. Denies chest pain, shortness of breath. She also endorses some "tingling" of her hands and feet, although this is difficult to describe, she does describe them as "weak" and "fatigued." She also states she has not urinated x 48h. In the emergency department, she was hypotensive and tachycardic which both responded to ivf. Her laboratory data is significant for leukocytosis to 14k, thrombocytopenia 140k, INR 2.0, elevated t bili at 5.5, Cr of > 6, lactate of almost 7, significant anion-gap metabolic acidosis. Critical care medicine is consulted to evaluate and manage her septic shock and multi-organ system dysfunction. Subjective: 05/21: clinically beginning to improve. UOP increased to 60 cc/hr overnight. Cr downtrended to 3. Acidosis improving slowly. nausea persists and she still endorses generalized crampy abdominal pain, though she cannot put a finger on any one area. with regard to her strength, she still has generalized subjective weakness. vasopressors are at lower doses, but persists on inotropes and multiple vasopressors. 2d formal echocardiogram completed overnight (on inotropic therapy) and demonstrates LVEF 60%, hyperdynamic, no valvular lesions. Infectious work-up and multiple cultures still outstanding. Objective Vital Signs Date Time Temp Pulse Resp B/P (MAP) Pulse Ox O2 Delivery O2 Flow Rate FiO2 05/21/17 06:47 116 124/70 05/21/17 04:00 99.6 30 98 05/20/17 20:18 Nasal Cannula 2.00 05/20/17 19:00 98 Intake and Output 05/21/17 05/21/17 05/22/17 08:00 16:00 00:00 Intake Total 2055 ml Output Total 1350 ml Balance 705 ml Result Diagram: 05/21/17 0440 05/21/17 0440 Other Results Microbiology Date/Time Source Procedure Growth Status 05/20/17 13:30 Stool Stool Rotavirus Antigen - Final NEGATIVE - ROTAVIRUS ANTIGEN IS ABSEN... Complete 05/20/17 09:40 Nasal Aspirate Influenza Types A,B Antigen (KEYANA) - Final NEGATIVE FOR FLU A AND B ANTIGEN.... Complete 05/20/17 09:40 Throat Group A Streptococcus Screen (KEYANA) - Final Complete Laboratory Tests Test 05/20/17 12:35 05/20/17 16:40 05/20/17 20:50 05/21/17 05:48 Blood Gas Puncture Site RT RADIAL CEASAR ART LINE ART LINE Blood Gas Patient Temperature 98.6 98.6 98.6 98.6 Blood Gas HCO3 11 mmol/L (22-26) 11 mmol/L (22-26) 13 mmol/L (22-26) 18 mmol/L (22-26) Blood Gas Base Excess -14.2 mmol/L (-2-2) -14.9 mmol/L (-2-2) -12.2 mmol/L (-2-2) -6.3 mmol/L (-2-2) Blood Gas Oxygen Saturation 95 % (90-100) 95 % (90-100) 96 % (90-100) 94 % ( 90-100) Arterial Blood pH 7.30 (7.380-7.420) 7.25 (7.380-7.420) 7.27 (7.380-7.420) 7.40 (7.380-7.420) Arterial Blood Partial Pressure CO2 23 mmHg (38-42) 26 mmHg (38-42) 30 mmHg (38-42) 29 mmHg (38-42) Arterial Blood Partial Pressure O2 92 mmHG (61-120) 98 mmHg (61-120) 119 mmHg (61-120) 78 mmHg (61-120) Arterial Blood Oxygen Content 15.2 Vol % (12.0-20.0) 13.8 Vol % (12.0-20.0) 14.2 Vol % (12.0-20.0) 11.6 Vol % (12.0-20.0) Arterial Blood Carboxyhemoglobin 0.6 % (0-4) 0.6 % (0-4) 0.8 % (0-4) 1.0 % (0-4) Arterial Blood Methemoglobin 0.6 % (0-2) 0.9 % (0-2) 1.0 % (0-2) 0.9 % (0-2) Blood Gas Hemoglobin 11.3 G/DL (12.0-16.0) 10.3 G/DL (12.0-16.0) 10.3 G/DL (12.0-16.0) 8.7 G/DL (12.0-16.0) Oxygen Delivery Device NASAL CANNULA NASAL CANNULA NASAL CANNULA NASAL CANNULA Blood Gas Liter Flow 2 L/M 4 L/M 2 L/M 2 L/M Imaging Last Impressions Neck CT 05/20/17 1633 Signed Impressions: Service Date/Time: Saturday, May 20, 2017 17:26 - CONCLUSION: 1. Limited evaluation secondary to lack of intravenous contrast. No masses are identified 2. Nonspecific slightly enlarged nodes in group 2 on the right Isma Randhawa MD Chest CT 05/20/17 1633 Signed Impressions: Service Date/Time: Saturday, May 20, 2017 17:29 - CONCLUSION: Patchy airspace disease both lung base is without pleural effusion. Zeus Pulido MD FACR Abdomen/Pelvis CT 05/20/17 1633 Signed Impressions: Service Date/Time: Saturday, May 20, 2017 17:29 - CONCLUSION: Limited exam without oral intravenous contrast. There is no free air. Do not see evidence for an abscess.. Zeus Pulido MD FACR Chest X-Ray 05/20/17 0930 Signed Impressions: Service Date/Time: Saturday, May 20, 2017 09:45 - CONCLUSION: No acute disease. Zeus Pulido MD FACR Abdomen Ultrasound 05/20/17 0000 Signed Impressions: Service Date/Time: Saturday, May 20, 2017 12:08 - CONCLUSION: Scattered small hyperechoic nonspecific there is left lobe of the liver. There are no gallstones. CT scan with contrast may be of benefit. Zeus Pulido MD FACR Objective Remarks gen: young female, lying in bed, moderate distress due to nausea and weakness. heent: nc. at. perrl. eomi. neck tenderness has improved. mucous membranes moist. neck: trachea midline. no jvd. chest: remains tachypneic, but respiratory rate lower than yesterday. clear to auscultation cv: tachycardic rate, regular rhythm. sinus by tele. CVP 5 abd: soft, mild generalized tenderness to palpation diffusely, no guarding, rebound. nondistended. no hepatosplenomegaly. extr: warm, improved peripheral perfusion. good cap refill. early generalized edema, 1+. neuro: awake, RASS 0. sensation grossly intact. THIAGO: RUE 4+/5 RLE 4+/5 LUE 4/5 LLE 4-/5. can barely move against gravity. no myoclonus. A/P Assessment and Plan Assessment: 21yF otherwise healthy who presents in near-extremis with multi- organ dysfunction, septic shock, DIC, severe anuric acute kidney injury, acute liver dysfunction. Clinically she remains in shock on multiple vasopressors and inotropes for myocardial dysfunction in the setting of distributive shock. However, early evidence of improving organ function, as uop has improved significantly and Cr improving. LFTs have not improved, and still with evidence of DIC. Remains critically ill with ongoing organ dysfunction. Weakness remains concerning, although it appears to be more left-sided and still generalized. This does not fit a classic Guillain Union syndrome picture, though still in the differential given clinical picture of infectious diarrhea. Overall plan is to continue antibiotics, await culture data, continue aggressive IVF resuscitation because despite significant volume loading, she remains intravascularly dry due to caplillary leak. Wean vasopressors as tolerated. Appreciate subspecialty involvement. I have updated the family extensively this morning regarding her progress. Plan by systems: Neurologic: Extremity Weakness Neck pain - tylenol as needed for pain - neuro consult - frequent neuro checks - watch closely for Guillain Union syndrome Respiratory: Atelectasis - wean o2 by NC for spo2 > 92% - aggressive pulmonary toilet. - not ready to be OOB yet, still on multiple vasopressors and inotropes. Cardiovascular: Septic Shock - persistent. Myocardial Stunning secondary to septic shock - trend cvp - mivf @ 125cc/hr + bicarb infusion @ 150cc/hr. - dobutamine at 2.5 mcg/kg/min - vasopressin at 0.04 units/min - levophed titrated for goal map > 65 mmHg - 2d echo 05/21 on dobutamine at 2.5 mcg/kg/min: LVEF 60%, no RWMA, no valvular lesions - 500cc 5% albumin iv x 1 today in the setting of persistent intravascular hypovolemia. Renal: Severe oligoanuric Acute Kidney Injury - improving. - nephrology following. - daily bmp -- Strict I/Os - continue Mendoza catheter today - renal ultrasound 05/20: no evidence of hydronephrosis. FEN/GI: Acute intravascular volume depletion - persistent. Suspected infectious diarrhea Acute liver dysfunction - persistent. Hyponatremia - improving. Hypokalemia Hypocalcemia Hypomagnesemia Anion-gap Metabolic Acidosis - improving. Lactic Acidosis - improving. - trend LFTs - GI consult to assist with hepatic dysfunction and diarrhea - replace K, Ca, Mg. persistently low. - mivf NS @ 125cc/hr - sodium bicarb drip @ 150cc/hr. - daily BMP, LFT - serial abg Heme/ID: Leukocytosis - improving. Probable Infectious Diarrhea Septic Shock - persistent. Thrombocytopenia - persistent. Acute Coagulopathy Disseminated Intravascular Coagulation - hematology consult - 4T score low probability for HIT - thrombocytopenia likely combination early DIC with consumption/severe sepsis - elevated INR combination early DIC and hepatic dysfunction - trend daily CBC and coags. - Cefepime, flagyl, daptomycin - vazquez cultures pending. - f/u stool studies - peripheral smear Endocrine: Hyperglycemia of critical illness -- SSI, med scale, q6h - will hold off on stress dose steroids at this time. patient is clearly in a vigorous SIRS response and does not clinically appear to be adrenally insufficient. secondary mortality is higher with empiric stress dose steroids, so we will hold off for now. Prophylaxis: GI Prophylaxis pepcid iv DVT Prophylaxis -- SCDs -- SQH. if platelet count drops below 50k or coagulopathy worsens, will hold pharmacologic DVT prophylaxis. Lines: - 05/20 left radial art line - 05/20 left SC TLC - Mendoza Dispo: remain in ICU. although some organs show signs of improvement, she persists in multiorgan failure and shock, and remains critically ill. This patient remains critically ill with one or more organ systems which are or may become a threat to life. I have spent in excess of 51 minutes discontinuously in the care and management of this patient. This time includes frequent reevaluation's throughout the day, the time I spent at bedside managing this critically ill patient while she was in extremis. This time is exclusive of procedures, and includes, but is not limited to, evaluation of the patient, review of the medical record, discussions with family, consultants, nursing staff, or respiratory therapy, and documentation in the medical record. Ricardo Knight MD May 21, 2017 07:06
[2017-05-21 07:18] LABS: INTERNATIONAL NORMALIZED RATIO 1.7 RATIO; PROTHROMBIN TIME - PATIENT 18.7 SEC (9.8-11.6)
--- NOTE | 2017-05-21 10:21 | HHI.NPPN ---
Subjective History of Present Illness 21 year old with ARF, septic shock, DIC Review of Systems General Constitutional: Fatigue Gastrointestinal Gastrointestinal: Diarrhea Objective Data Data Vital Signs Date Time Temp Pulse Resp B/P (MAP) Pulse Ox O2 Delivery O2 Flow Rate FiO2 05/21/17 08:13 95 Nasal Cannula 3.00 05/21/17 07:00 Nasal Cannula 3.00 98 05/21/17 06:50 Nasal Cannula 3.00 93 05/21/17 06:47 116 124/70 05/21/17 06:38 116 120/68 05/21/17 06:00 114 120/68 (85) 05/21/17 06:00 114 05/21/17 05:57 120 131/64 05/21/17 04:47 115 84/57 05/21/17 04:00 99.6 118 30 112/59 (76) 98 89/64 (72) 05/21/17 04:00 118 05/21/17 02:00 116 05/21/17 01:55 114 91/60 05/21/17 00:57 120 99/63 05/21/17 00:30 121 100/63 05/21/17 00:20 127 108/63 05/21/17 00:13 129 114/67 05/21/17 00:00 127 05/21/17 00:00 99.1 127 30 132/75 (94) 98 107/66 (80) 05/20/17 23:45 128 100/59 05/20/17 23:18 127 98/60 05/20/17 23:00 127 98/60 05/20/17 22:20 122 95/54 05/20/17 22:00 122 05/20/17 21:31 129 95/60 05/20/17 21:04 128 94/56 05/20/17 20:46 123 92/54 05/20/17 20:18 95 Nasal Cannula 2.00 05/20/17 20:00 99.1 124 29 114/58 (76) 98 93/61 (72) 05/20/17 20:00 124 05/20/17 20:00 124 05/20/17 19:00 Nasal Cannula 2.00 98 05/20/17 18:42 122 92/55 05/20/17 18:00 124 05/20/17 16:45 120 80/41 05/20/17 16:45 94 4.00 05/20/17 16:15 100 Nasal Cannula 4.00 05/20/17 16:00 98.9 122 18 81/52 (62) 90 05/20/17 16:00 93 Nasal Cannula 2.00 05/20/17 16:00 122 05/20/17 15:04 122 71/35 05/20/17 15:00 120 05/20/17 15:00 120 05/20/17 15:00 98.6 120 20 74/58 (63) 94 05/20/17 14:08 100.1 129 27 75/40 (52) 98 Nasal Cannula 3.00 05/20/17 10:40 140 32 85/43 (57) 96 2.00 05/20/17 10:40 138 34 89/46 (60) 100 Nasal Cannula 2.00 -: 05/21/17 0440 05/21/17 0440 Microbiology 05/20/17 Aerobic Blood Culture, Received Pending 05/20/17 Anaerobic Blood Culture, Received Pending 05/20/17 Aerobic Blood Culture, Received Pending 05/20/17 Anaerobic Blood Culture, Received Pending 05/20/17 Cyclospora Exam, Resulted Pending 05/20/17 Cryptosporidium Exam, Resulted Pending 05/20/17 Stool Pus (KEYANA) - Final, Resulted NO WBC'S SEEN 05/20/17 Giardia Antigen (KEYANA), Resulted Pending 05/20/17 Rotavirus Antigen - Final, Complete NEGATIVE - ROTAVIRUS ANTIGEN IS ABSEN... 05/20/17 , Received Pending 05/20/17 Urine Culture, Received Pending Physical Exam General Appearance: Well Developed, Well Nourished Neck Neck Exam: Neck Supple Pulmonary Resp Exam: Clear Bilaterally, Breath Sounds Equal Cardiology CV Exam: Tachycardia Gastrointestinal/Abdomen GI Exam: Soft, Non-Tender, Bowel Sounds Present Extremeties Extremities Exam: No Edema Assessment/Plan Problem List: (1) Acute renal failure ICD Codes: N17.9 - Acute kidney failure, unspecified Status: Acute Plan: She has shocked the kidneys and was hypotensive Hypochloremic alkalosis corrected, Acidosis improved K low replace , Mg/Ca given Cr declined with volume resuscitation she has copious GI secretions in Rectal bag, await cultures vasopressors weaned down ID following discuss with mother continue supportive care pt has DIC (2) Elevated liver enzymes ICD Codes: R74.8 - Abnormal levels of other serum enzymes Status: Acute Plan: due to shock liver (3) Nausea vomiting and diarrhea ICD Codes: R11.2 - Nausea with vomiting, unspecified; R19.7 - Diarrhea, unspecified Status: Acute Plan: Severe sepsis etiology unclear (4) Acid-base disorder, mixed ICD Codes: E87.4 - Mixed disorder of acid-base balance Plan: resolved acidosis Alkalosis improved this was volume contracture chloride responsive due to GI losses Problem Qualifiers (1) Acute renal failure: Qualified Codes: N17.0 - Acute kidney failure with tubular necrosis Khadijah Shirley MD May 21, 2017 10:21
--- NOTE | 2017-05-21 10:54 | PD.ONC.PN ---
Subjective Subjective Remarks Afebrile overnight. Fatigued young woman, lying supine in bed, fatigued. Mother at bedside. Objective Data Date Time Temp Pulse Resp B/P (MAP) Pulse Ox O2 Delivery O2 Flow Rate FiO2 05/21/17 08:13 95 Nasal Cannula 3.00 05/21/17 07:00 Nasal Cannula 3.00 98 05/21/17 06:50 Nasal Cannula 3.00 93 05/21/17 06:47 116 124/70 05/21/17 06:38 116 120/68 05/21/17 06:00 114 120/68 (85) 05/21/17 06:00 114 05/21/17 05:57 120 131/64 05/21/17 04:47 115 84/57 05/21/17 04:00 99.6 118 30 112/59 (76) 98 89/64 (72) 05/21/17 04:00 118 05/21/17 02:00 116 05/21/17 01:55 114 91/60 05/21/17 00:57 120 99/63 05/21/17 00:30 121 100/63 05/21/17 00:20 127 108/63 05/21/17 00:13 129 114/67 05/21/17 00:00 127 05/21/17 00:00 99.1 127 30 132/75 (94) 98 107/66 (80) 05/20/17 23:45 128 100/59 05/20/17 23:18 127 98/60 05/20/17 23:00 127 98/60 05/20/17 22:20 122 95/54 05/20/17 22:00 122 05/20/17 21:31 129 95/60 05/20/17 21:04 128 94/56 05/20/17 20:46 123 92/54 05/20/17 20:18 95 Nasal Cannula 2.00 05/20/17 20:00 99.1 124 29 114/58 (76) 98 93/61 (72) 05/20/17 20:00 124 05/20/17 20:00 124 05/20/17 19:00 Nasal Cannula 2.00 98 05/20/17 18:42 122 92/55 05/20/17 18:00 124 05/20/17 16:45 120 80/41 05/20/17 16:45 94 4.00 05/20/17 16:15 100 Nasal Cannula 4.00 05/20/17 16:00 98.9 122 18 81/52 (62) 90 05/20/17 16:00 93 Nasal Cannula 2.00 05/20/17 16:00 122 05/20/17 15:04 122 71/35 05/20/17 15:00 120 05/20/17 15:00 120 05/20/17 15:00 98.6 120 20 74/58 (63) 94 05/20/17 14:08 100.1 129 27 75/40 (52) 98 Nasal Cannula 3.00 05/21/17 05/21/17 05/21/17 07:00 15:00 23:00 Intake Total 2635 ml Output Total 1350 ml Balance 1285 ml Result Diagram: 05/21/1743905/21/17 044 Laboratory Results Laboratory Tests Test 05/20/17 10:55 05/20/17 12:35 05/20/17 13:30 05/20/17 13:40 Haptoglobin 134 MG/DL Serum Osmolality 286 MOSM/KG Lactate Dehydrogenase 229 U/L Hepatitis A IgM Antibody NEGATIVE Hepatitis B Surface Antigen NEGATIVE Hepatitis B Core IgM Antibody NEGATIVE Hepatitis C Antibody NEGATIVE Blood Gas Puncture Site RT RADIAL Blood Gas Patient Temperature 98.6 Blood Gas HCO3 11 mmol/L Blood Gas Base Excess -14.2 mmol/L Blood Gas Oxygen Saturation 95 % Arterial Blood pH 7.30 Arterial Blood Partial Pressure CO2 23 mmHg Arterial Blood Partial Pressure O2 92 mmHG Arterial Blood Oxygen Content 15.2 Vol % Arterial Blood Carboxyhemoglobin 0.6 % Arterial Blood Methemoglobin 0.6 % Blood Gas Hemoglobin 11.3 G/DL Oxygen Delivery Device NASAL CANNULA Blood Gas Liter Flow 2 L/M Eosinophil Stool Smear NONE SEEN /HPF Stool C. difficile Toxin (PCR) NEGATIVE Stl C. difficile Toxin Epiderm 027 PRESUMPTIVE NEGATIVE Lactic Acid Level 6.8 mmol/L Test 05/20/17 14:00 05/20/17 16:40 05/20/17 16:45 05/20/17 16:50 Urine Color DARK-YELLOW Urine Turbidity CLOUDY Urine pH 5.5 Urine Specific [place] 1.020 Urine Protein 100 mg/dL Urine Glucose (UA) NEG mg/dL Urine Ketones NEG mg/dL Urine Occult Blood MOD Urine Nitrite NEG Urine Bilirubin MOD Urine Urobilinogen LESS THAN 2.0 MG/DL Urine Leukocyte Esterase MOD Urine RBC 12 /hpf Urine WBC 31 /hpf Urine Squamous Epithelial Cells 1 /hpf Urine Amorphous Sediment RARE Urine Bacteria MANY /hpf Urine Hyaline Casts 19 /lpf Microscopic Urinalysis Comment CULTURE INDICATED Urine Eosinophils NONE SEEN /HPF Urine Osmolality 324 MOSM/KG Urine Random Creatinine 351.6 MG/DL Urine Random Sodium 31 MEQ/L Urine Opiates Screen NEG Urine Barbiturates Screen NEG Urine Amphetamines Screen NEG Urine Benzodiazepines Screen NEG Urine Cocaine Screen NEG Urine Cannabinoids Screen NEG Blood Gas Puncture Site CEASAR Blood Gas Patient Temperature 98.6 Blood Gas HCO3 11 mmol/L Blood Gas Base Excess -14.9 mmol/L Blood Gas Oxygen Saturation 95 % Arterial Blood pH 7.25 Arterial Blood Partial Pressure CO2 26 mmHg Arterial Blood Partial Pressure O2 98 mmHg Arterial Blood Oxygen Content 13.8 Vol % Arterial Blood Carboxyhemoglobin 0.6 % Arterial Blood Methemoglobin 0.9 % Blood Gas Hemoglobin 10.3 G/DL Oxygen Delivery Device NASAL CANNULA Blood Gas Liter Flow 4 L/M Nasal Screen MRSA (PCR) MRSA NOT DETECTED White Blood Count 13.6 TH/MM3 Red Blood Count 3.63 MIL/MM3 Hemoglobin 10.6 GM/DL Hematocrit 32.7 % Mean Corpuscular Volume 90.1 FL Mean Corpuscular Hemoglobin 29.3 PG Mean Corpuscular Hemoglobin Concent 32.6 % Red Cell Distribution Width 12.8 % Platelet Count 108 TH/MM3 Mean Platelet Volume 10.0 FL Neutrophils (%) (Auto) 96.1 % Lymphocytes (%) (Auto) 1.3 % Monocytes (%) (Auto) 1.4 % Eosinophils (%) (Auto) 1.0 % Basophils (%) (Auto) 0.2 % Neutrophils # (Auto) 13.1 TH/MM3 Lymphocytes # (Auto) 0.2 TH/MM3 Monocytes # (Auto) 0.2 TH/MM3 Eosinophils # (Auto) 0.1 TH/MM3 Basophils # (Auto) 0.0 TH/MM3 CBC Comment AUTO DIFF Differential Total Cells Counted 100 Neutrophils % (Manual) 51 % Band Neutrophils % 30 % Lymphocytes % 1 % Monocytes % 2 % Neutrophils # (Manual) 13.2 TH/MM3 Metamyelocytes 14 % Myelocytes 2 % Differential Comment FINAL DIFF MANUAL Toxic Vacuolation PRESENT Dohle Bodies PRESENT Platelet Estimate LOW Platelet Morphology Comment ENLARGED Ovalocytes 1+ Reina Cells 1+ Erythrocyte Sedimentation Rate 25 mm/hr Fibrinogen 426 mg/dL Potassium Level 3.8 MEQ/L Lactic Acid Level 5.3 mmol/L Magnesium Level 1.1 MG/DL Total Bilirubin 4.4 MG/DL Direct Bilirubin 3.4 MG/DL Indirect Bilirubin 1.0 MG/DL Total Creatine Kinase 620 U/L Creatine Kinase MB 12.1 NG/ML Creatine Kinase MB % 2.0 % C-Reactive Protein 16.60 MG/DL Vitamin B12 Level 1312 PG/ML Free Thyroxine 1.44 NG/DL Thyroid Stimulating Hormone 3rd Gen 1.550 uIU/ML Test 05/20/17 19:15 05/20/17 19:30 05/20/17 19:55 05/20/17 20:50 Total Protein 4.7 GM/DL Potassium Level 3.9 MEQ/L Urine Random Potassium 47 MEQ/L Urine Random Chloride 15 MEQ/L Blood Gas Puncture Site ART LINE Blood Gas Patient Temperature 98.6 Blood Gas HCO3 13 mmol/L Blood Gas Base Excess -12.2 mmol/L Blood Gas Oxygen Saturation 96 % Arterial Blood pH 7.27 Arterial Blood Partial Pressure CO2 30 mmHg Arterial Blood Partial Pressure O2 119 mmHg Arterial Blood Oxygen Content 14.2 Vol % Arterial Blood Carboxyhemoglobin 0.8 % Arterial Blood Methemoglobin 1.0 % Blood Gas Hemoglobin 10.3 G/DL Oxygen Delivery Device NASAL CANNULA Blood Gas Liter Flow 2 L/M Test 05/21/17 04:40 05/21/17 05:48 05/21/17 06:44 White Blood Count 8.4 TH/MM3 Red Blood Count 3.13 MIL/MM3 Hemoglobin 9.8 GM/DL Hematocrit 27.9 % Mean Corpuscular Volume 89.2 FL Mean Corpuscular Hemoglobin 31.2 PG Mean Corpuscular Hemoglobin Concent 35.0 % Red Cell Distribution Width 13.1 % Platelet Count 76 TH/MM3 Mean Platelet Volume 9.8 FL Blood Urea Nitrogen 45 MG/DL Creatinine 3.37 MG/DL Random Glucose 149 MG/DL Total Protein 4.8 GM/DL Albumin 2.4 GM/DL Calcium Level 6.4 MG/DL Phosphorus Level 3.5 MG/DL Magnesium Level 1.6 MG/DL Alkaline Phosphatase 61 U/L Aspartate Amino Transf (AST/SGOT) 75 U/L Alanine Aminotransferase (ALT/SGPT) 52 U/L Lactate Dehydrogenase 252 U/L Total Bilirubin 3.4 MG/DL Direct Bilirubin 2.7 MG/DL Sodium Level 136 MEQ/L Potassium Level 3.0 MEQ/L Chloride Level 104 MEQ/L Carbon Dioxide Level 18.7 MEQ/L Anion Gap 13 MEQ/L Estimat Glomerular Filtration Rate 21 ML/MIN Protein Corrected Calcium 7.5 MG/DL Indirect Bilirubin 0.7 MG/DL Blood Gas Puncture Site ART LINE Blood Gas Patient Temperature 98.6 Blood Gas HCO3 18 mmol/L Blood Gas Base Excess -6.3 mmol/L Blood Gas Oxygen Saturation 94 % Arterial Blood pH 7.40 Arterial Blood Partial Pressure CO2 29 mmHg Arterial Blood Partial Pressure O2 78 mmHg Arterial Blood Oxygen Content 11.6 Vol % Arterial Blood Carboxyhemoglobin 1.0 % Arterial Blood Methemoglobin 0.9 % Blood Gas Hemoglobin 8.7 G/DL Oxygen Delivery Device NASAL CANNULA Blood Gas Liter Flow 2 L/M Prothrombin Time 18.7 SEC Prothromb Time International Ratio 1.7 RATIO Activated Partial Thromboplast Time 42.8 SEC Culture Results Microbiology Date/Time Source Procedure Growth Status 05/20/17 16:50 Blood Peripheral Aerobic Blood Culture Pending Received 05/20/17 16:50 Blood Peripheral Anaerobic Blood Culture Pending Received 05/20/17 16:50 Blood Peripheral Aerobic Blood Culture Pending Received 05/20/17 16:50 Blood Peripheral Anaerobic Blood Culture Pending Received 05/20/17 09:35 Blood Peripheral Aerobic Blood Culture Pending Received 05/20/17 09:35 Blood Peripheral Anaerobic Blood Culture Pending Received 05/20/17 09:33 Blood Peripheral Aerobic Blood Culture Pending Received 05/20/17 09:33 Blood Peripheral Anaerobic Blood Culture Pending Received 05/20/17 13:30 Stool Stool Cyclospora Exam Pending Resulted 05/20/17 13:30 Stool Stool Cryptosporidium Exam Pending Resulted 05/20/17 13:30 Stool Stool Stool Pus (KEYANA) - Final NO WBC'S SEEN Resulted 05/20/17 13:30 Stool Stool Giardia Antigen (KEYANA) Pending Resulted 05/20/17 13:30 Stool Stool Rotavirus Antigen - Final NEGATIVE - ROTAVIRUS ANTIGEN IS ABSEN... Complete 05/20/17 12:20 Stool Stool Pending Received 05/20/17 09:40 Throat Group A Streptococcus Screen Pending Received 05/20/17 09:40 Nasal Aspirate Influenza Types A,B Antigen (KEYANA) - Final NEGATIVE FOR FLU A AND B ANTIGEN.... Complete 05/20/17 09:40 Throat Group A Streptococcus Screen (KEYANA) - Final Complete 05/20/17 14:00 Urine Random Urine Urine Culture Pending Received Imaging Studies Last [address] 05/20/17 1633 Signed Impressions: Service Date/Time: Saturday, May 20, 2017 17:26 - CONCLUSION: 1. Limited evaluation secondary to lack of intravenous contrast. No masses are identified 2. Nonspecific slightly enlarged nodes in group 2 on the right Isma Randhawa MD Chest CT 05/20/17 1633 Signed Impressions: Service Date/Time: Saturday, May 20, 2017 17:29 - CONCLUSION: Patchy airspace disease both lung base is without pleural effusion. Zeus Pulido MD FACR Abdomen/Pelvis CT 05/20/173 Signed Impressions: Service Date/Time: Saturday, May 20, 2017 17:29 - CONCLUSION: Limited exam without oral intravenous contrast. There is no free air. Do not see evidence for an abscess.. Zeus Pulido MD FACR Administered Medications Medications (Trade) Dose Ordered Sig/Juju Route PRN Reason Start Time Stop Time Status Last Admin Dose Admin Sodium Chloride 1,000 ml @ 125 mls/hr Q8H IV 05/20/17 11:46 05/21/17 04:01 Ondansetron HCl (Zofran Inj) 4 mg Q6H PRN IV PUSH NAUSEA OR VOMITING 05/20/17 12:00 05/21/17 05:56 Heparin Sodium (Porcine) (Heparin Inj) 5,000 units Q12H SQ 05/20/17 13:00 05/21/17 01:58 Miscellaneous Information 1 [id number] 05/20/17 12:00 05/20/17 20:24 Norepinephrine Bitartrate 250 ml @ 7.5 mls/hr TITRATE PRN IV Blood pressure management 05/20/17 14:45 05/21/17 00:13 Sodium Bicarbonate 150 meq/Dextrose 1,150 ml @ 150 mls/hr [id number] IV 05/20/17 14:45 05/21/17 07:48 Cefepime HCl 2000 mg/Sodium Chloride 100 ml @ 200 mls/hr Q24H IV 05/20/17 16:00 05/20/17 18:42 Metronidazole 100 ml @ 100 mls/hr Q8H IV 05/20/17 16:00 05/21/17 08:55 Vasopressin 40 units/Dextrose 100 ml @ 6 mls/hr [id number] IV 05/20/17 16:32 05/21/17 05:57 Dobutamine HCl/ Dextrose 250 ml @ 10.65 mls/ hr [id number] PRN IV Rate change per MD 05/20/17 16:32 05/20/17 16:45 Sodium Chloride 500 ml @ 20 mls/hr Q24H IV 05/20/17 19:15 05/20/17 16:00 Objective Remarks GENERAL: Fatigued young female lying supine in bed in nad. SKIN: Warm and dry. HEAD: Normocephalic. EYES: No injection or drainage. NECK: Supple, trachea midline. CARDIOVASCULAR: tachycardic rate, regular rhythm. RESPIRATORY: anterior nassar clear. On 3L O2 via NC GASTROINTESTINAL: Abdomen soft, non-tender, nondistended. EXTREMITIES: No cyanosis NEUROLOGICAL: awake, fatigued. Assessment/Plan Problem List: (1) Thrombocytopenia ICD Codes: D69.6 - Thrombocytopenia, unspecified Plan: 05/21: platelets dropping expected d/t sepsis. will check fibrinogen and transfuse cryo if fibrinogen less than 100. --due to sepsis and possible DIC. --No evidence of microangiopathic hemolytic anemia. --peripheral smear-->No evidence of schistocytes noted. --bilirubin is elevated due to shock liver. --will give cryo for fibrinogen less than 100 --expect her platelet count to go down before it will improve back to normal due to her current septic shock syndrome. (2) Nausea vomiting and diarrhea ICD Codes: R11.2 - Nausea with vomiting, unspecified; R19.7 - Diarrhea, unspecified Status: Acute Plan: --unknown etiology --?GI infection --stool cultures pending (3) Sepsis ICD Codes: A41.9 - Sepsis, unspecified organism Plan: --on Flagyl, Daptomycin and Cefepime, --Blood cultures, 05/20, no growth x 1 day Assessment 21y/o female admitted with septic shock. Hematology consulted for thrombocytopenia. Attending Statement still has diarrhea start making urine. Creatinin is coming down. Thrombocytopenia is due to sepsis and DIC. No Evidence of HUS OR TTP monitor coags and cbc The exam, history, and the medical decision-making described in the above note were completed with the assistance of the mid-level provider. I reviewed and agree with the findings presented. I attest that I had a [id number] encounter with the patient on the same day, and personally performed and documented my assessment and findings in the medical record. Jenny Alberto May 21, 2017 10:54 Raghav Veiyra MD May 21, 2017 20:52
[2017-05-21 13:28] LABS: MAGNESIUM 2.4 MG/DL (1.5-2.5)
[2017-05-21 13:29] LABS: CALCIUM 7.1 MG/DL (8.5-10.1)
[2017-05-21] MEDS: DOBUTamine PREMIX DRIP 250 ML IV PRN ×2 (14:21)
--- NOTE | 2017-05-21 14:21 | HHI.IDPN ---
Subjective Subjective Remarks is a 21 y/o AAF with no significant PMHx who presents with acute onset of diarrhea, N/V, extreme weakness with no urine output for ~ 3 days prior to admission. Patient reports she was playing her usual volley ball game and came home and had a a nap. When she woke up she felt nauseous, vomited couple of times and had diarrhea with no blood since then. She continued to have these symptoms since that day and progressively felt weak, achy with headaches. She denies any visual problems. She reports discomfort in her throat and secretions accumulating in mouth. She denies any soreness although on exam she has erythema. She denies any difficulty swallowing. She reports an acute steady decline in urine output and has had no urine output since 2 days. She reports myalgias and extreme weakness and could not participate in a neuro exam. She reports neck pain but no neck stiffness and is able to move her neck side ways. She denies any rash. Foods consumed last week: Salads, chilli, [employer] burger and apple pie. She denies eating any cold cuts, hot dogs or fresh cheeses. In fact she does not like cheese. She lives with her room mates from college and 1 other person has flu like symptoms but no one else has GI symptoms. She has never been tested for hepatitis and HIV. She is currently in her periods and reports using tampons earlier on but she removed them in their entirety. No vaginal foul smelling discharge other than usual menstrual blood. She reports being sexually active but protected sex with no oral activity. On presentation to the ED she reported a fever 101 F at home, subjective chills. She had a SBP 85, lactic acid elevated, WBC elevated at 14.5 with Dohle' s bodies, no obvious schistocytes, LDH and Hapto are normal but Ddimer is elevated and coag abnormal with elevated INR. Pathologist review of smear is pending at present time. I personally called and notified need for stat PS review by pathologist. BP continued to be low so patient was transferred to [facility] under academy director service. Central line and A line are being placed. ID consulted for evaluation and Mment of sepsis possible HUS. Overnight events reviewed. Pressor requirements gone down significantly. On room air. Alert, oriented. Denies any tingling and numbness. UO improved overnight to 250 cc/hr when last checked at time of my visit. Very faint macular rash on her thighs and lower back. Non itchy. No airway issues. Diarrhea persists. Antibiotics Cefepime IV Flagyl IV Dapto IV Lines Line sites with no e.o infection Past Medical History reviewed and none Allergies: Coded Allergies: No Known Allergies (Unverified Allergy, Unknown, 05/20/17) Objective . Vital Signs Date Time Temp Pulse Resp B/P (MAP) Pulse Ox O2 Delivery O2 Flow Rate FiO2 05/21/17 12:00 111 05/21/17 12:00 100.0 111 34 118/62 (80) 99 89/64 (72) 05/21/17 12:00 111 126/74 05/21/17 10:00 117 05/21/17 08:13 95 Nasal Cannula 3.00 05/21/17 08:00 99.3 116 35 122/66 (84) 98 89/64 (72) 05/21/17 08:00 117 05/21/17 07:00 Nasal Cannula 3.00 98 05/21/17 06:50 Nasal Cannula 3.00 93 05/21/17 06:47 116 124/70 05/21/17 06:38 116 120/68 05/21/17 06:00 114 120/68 (85) 05/21/17 06:00 114 05/21/17 05:57 120 131/64 05/21/17 04:47 115 84/57 05/21/17 04:00 99.6 118 30 112/59 (76) 98 89/64 (72) 05/21/17 04:00 118 05/21/17 02:00 116 05/21/17 01:55 114 91/60 05/21/17 00:57 120 99/63 05/21/17 00:30 121 100/63 05/21/17 00:20 127 108/63 05/21/17 00:13 129 114/67 05/21/17 00:00 127 05/21/17 00:00 99.1 127 30 132/75 (94) 98 107/66 (80) 05/20/17 23:45 128 100/59 05/20/17 23:18 127 98/60 05/20/17 23:00 127 98/60 05/20/17 22:20 122 95/54 05/20/17 22:00 122 05/20/17 21:31 129 95/60 05/20/17 21:04 128 94/56 05/20/17 20:46 123 92/54 05/20/17 20:18 95 Nasal Cannula 2.00 05/20/17 20:00 99.1 124 29 114/58 (76) 98 93/61 (72) 05/20/17 20:00 124 05/20/17 20:00 124 05/20/17 19:00 Nasal Cannula 2.00 98 05/20/17 18:42 122 92/55 05/20/17 18:00 124 05/20/17 16:45 120 80/41 05/20/17 16:45 94 4.00 05/20/17 16:15 100 Nasal Cannula 4.00 05/20/17 16:00 98.9 122 18 81/52 (62) 90 05/20/17 16:00 93 Nasal Cannula 2.00 05/20/17 16:00 122 05/20/17 15:04 122 71/35 05/20/17 15:00 120 05/20/17 15:00 120 05/20/17 15:00 98.6 120 20 74/58 (63) 94 05/21/17 05/21/17 05/22/17 15:00 23:00 07:00 Intake Total 1887 ml Balance 1887 ml Intake IV Total 1887 ml . Laboratory Tests Test 05/20/17 09:30 05/20/17 10:55 05/20/17 16:50 05/21/17 04:40 White Blood Count 14.0 TH/MM3 13.6 TH/MM3 8.4 TH/MM3 Red Blood Count 4.46 MIL/MM3 3.63 MIL/MM3 3.13 MIL/MM3 Hemoglobin 13.5 GM/DL 10.6 GM/DL 9.8 GM/DL Hematocrit 41.3 % 32.7 % 27.9 % Mean Corpuscular Volume 92.7 FL 90.1 FL 89.2 FL Mean Corpuscular Hemoglobin 30.3 PG 29.3 PG 31.2 PG Mean Corpuscular Hemoglobin Concent 32.7 % 32.6 % 35.0 % Red Cell Distribution Width 12.9 % 12.8 % 13.1 % Platelet Count 146 TH/MM3 108 TH/MM3 76 TH/MM3 Mean Platelet Volume 10.0 FL 10.0 FL 9.8 FL Neutrophils (%) (Auto) 95.7 % 96.1 % Lymphocytes (%) (Auto) 2.1 % 1.3 % Monocytes (%) (Auto) 1.7 % 1.4 % Eosinophils (%) (Auto) 0.4 % 1.0 % Basophils (%) (Auto) 0.1 % 0.2 % Neutrophils # (Auto) 13.4 TH/MM3 13.1 TH/MM3 Lymphocytes # (Auto) 0.3 TH/MM3 0.2 TH/MM3 Monocytes # (Auto) 0.2 TH/MM3 0.2 TH/MM3 Eosinophils # (Auto) 0.1 TH/MM3 0.1 TH/MM3 Basophils # (Auto) 0.0 TH/MM3 0.0 TH/MM3 CBC Comment AUTO DIFF AUTO DIFF Differential Total Cells Counted 100 100 Neutrophils % (Manual) 25 % 51 % Band Neutrophils % 16 % 30 % Lymphocytes % 2 % 1 % Monocytes % 2 % 2 % Neutrophils # (Manual) 13.4 TH/MM3 13.2 TH/MM3 Metamyelocytes 54 % 14 % Myelocytes 1 % 2 % Differential Comment FINAL DIFF MANUAL FINAL DIFF MANUAL Toxic Granulation 1+ Toxic Vacuolation PRESENT PRESENT Dohle Bodies PRESENT PRESENT Platelet Estimate NORMAL LOW Platelet Morphology Comment NORMAL ENLARGED Blood Smear Pathologist Review Haptoglobin 134 MG/DL Ovalocytes 1+ Fidelity Cells 1+ Erythrocyte Sedimentation Rate 25 mm/hr Laboratory Tests Test 05/20/17 09:30 05/20/17 10:55 05/20/17 13:40 05/20/17 16:50 Blood Urea Nitrogen 47 MG/DL Creatinine 6.52 MG/DL Random Glucose 93 MG/DL Total Protein 7.2 GM/DL Albumin 3.3 GM/DL Calcium Level 8.0 MG/DL Alkaline Phosphatase 64 U/L Aspartate Amino Transf (AST/SGOT) 71 U/L Alanine Aminotransferase (ALT/SGPT) 81 U/L Total Bilirubin 5.5 MG/DL 4.4 MG/DL Sodium Level 131 MEQ/L Potassium Level 3.2 MEQ/L 3.8 MEQ/L Chloride Level 93 MEQ/L Carbon Dioxide Level 16.0 MEQ/L Anion Gap 22 MEQ/L Estimat Glomerular Filtration Rate 10 ML/MIN Total Creatine Kinase 276 U/L 620 U/L Creatine Kinase MB 1.1 NG/ML 12.1 NG/ML Creatine Kinase MB % 0.4 % 2.0 % Serum Osmolality 286 MOSM/KG Lactate Dehydrogenase 229 U/L Lactic Acid Level 6.8 mmol/L 5.3 mmol/L Magnesium Level 1.1 MG/DL Direct Bilirubin 3.4 MG/DL Indirect Bilirubin 1.0 MG/DL C-Reactive Protein 16.60 MG/DL Vitamin B12 Level 1312 PG/ML Free Thyroxine 1.44 NG/DL Thyroid Stimulating Hormone 3rd Gen 1.550 uIU/ML Test 05/20/17 19:15 05/20/17 19:30 05/21/17 04:40 05/21/17 11:30 Total Protein 4.7 GM/DL 4.8 GM/DL Potassium Level 3.9 MEQ/L 3.0 MEQ/L 2.9 MEQ/L Blood Urea Nitrogen 45 MG/DL Creatinine 3.37 MG/DL Random Glucose 149 MG/DL Albumin 2.4 GM/DL Calcium Level 6.4 MG/DL 7.1 MG/DL Phosphorus Level 3.5 MG/DL Magnesium Level 1.6 MG/DL 2.4 MG/DL Alkaline Phosphatase 61 U/L Aspartate Amino Transf (AST/SGOT) 75 U/L Alanine Aminotransferase (ALT/SGPT) 52 U/L Lactate Dehydrogenase 252 U/L Total Bilirubin 3.4 MG/DL Direct Bilirubin 2.7 MG/DL Sodium Level 136 MEQ/L Chloride Level 104 MEQ/L Carbon Dioxide Level 18.7 MEQ/L Anion Gap 13 MEQ/L Estimat Glomerular Filtration Rate 21 ML/MIN Protein Corrected Calcium 7.5 MG/DL Indirect Bilirubin 0.7 MG/DL Microbiology Date/Time Source Procedure Growth Status 05/20/17 16:50 Blood Peripheral Aerobic Blood Culture - Preliminary NO GROWTH IN 1 DAY Resulted 05/20/17 16:50 Blood Peripheral Anaerobic Blood Culture - Preliminary NO GROWTH IN 1 DAY Resulted 05/20/17 16:50 Blood Peripheral Aerobic Blood Culture - Preliminary NO GROWTH IN 1 DAY Resulted 05/20/17 16:50 Blood Peripheral Anaerobic Blood Culture - Preliminary NO GROWTH IN 1 DAY Resulted 05/20/17 09:35 Blood Peripheral Aerobic Blood Culture - Preliminary NO GROWTH IN 1 DAY Resulted 05/20/17 09:35 Blood Peripheral Anaerobic Blood Culture - Preliminary NO GROWTH IN 1 DAY Resulted 05/20/17 09:33 Blood Peripheral Aerobic Blood Culture - Preliminary NO GROWTH IN 1 DAY Resulted 05/20/17 09:33 Blood Peripheral Anaerobic Blood Culture - Preliminary NO GROWTH IN 1 DAY Resulted 05/20/17 13:30 Stool Stool Cyclospora Exam - Final NO CYCLOSPORA SEEN Resulted 05/20/17 13:30 Stool Stool Cryptosporidium Exam Pending Resulted 05/20/17 13:30 Stool Stool Stool Pus (KEYANA) - Final NO WBC'S SEEN Resulted 05/20/17 13:30 Stool Stool Giardia Antigen (KEYANA) Pending Resulted 05/20/17 13:30 Stool Stool Rotavirus Antigen - Final NEGATIVE - ROTAVIRUS ANTIGEN IS ABSEN... Complete 05/20/17 12:20 Stool Stool Pending Received 05/20/17 09:40 Throat Group A Streptococcus Screen - Preliminary NO BETA STREPTOCOCCI ISOLATED AT 24 H... Resulted 05/20/17 09:40 Nasal Aspirate Influenza Types A,B Antigen (KEYANA) - Final NEGATIVE FOR FLU A AND B ANTIGEN.... Complete 05/20/17 09:40 Throat Group A Streptococcus Screen (KEYANA) - Final Complete 05/20/17 14:00 Urine Random Urine Urine Culture - Preliminary NO GROWTH IN 24 HOURS. Resulted Imaging Last Impressions Neck CT 05/20/17 1633 Signed Impressions: Service Date/Time: Saturday, May 20, 2017 17:26 - CONCLUSION: 1. Limited evaluation secondary to lack of intravenous contrast. No masses are identified 2. Nonspecific slightly enlarged nodes in group 2 on the right Isma Randhawa MD Chest CT 05/20/17 1633 Signed Impressions: Service Date/Time: Saturday, May 20, 2017 17:29 - CONCLUSION: Patchy airspace disease both lung base is without pleural effusion. Zeus Pulido MD FACR Abdomen/Pelvis CT 05/20/17 1633 Signed Impressions: Service Date/Time: Saturday, May 20, 2017 17:29 - CONCLUSION: Limited exam without oral intravenous contrast. There is no free air. Do not see evidence for an abscess.. Zeus Pulido MD FACR Chest X-Ray 05/20/17 0930 Signed Impressions: Service Date/Time: Saturday, May 20, 2017 09:45 - CONCLUSION: No acute disease. Zeus Pulido MD FACR Abdomen Ultrasound 05/20/17 0000 Signed Impressions: Service Date/Time: Saturday, May 20, 2017 12:08 - CONCLUSION: Scattered small hyperechoic nonspecific there is left lobe of the liver. There are no gallstones. CT scan with contrast may be of benefit. Zeus Pulido MD FACR Physical Exam GENERAL: This is a well-nourished, well-developed patient, in no apparent distress. SKIN: No rashes, ecchymoses or lesions. Cool and dry. HEAD: Atraumatic. Normocephalic. No temporal or scalp tenderness. EYES: Pupils equal round and reactive. Extraocular motions intact. No scleral icterus. No injection or drainage. ENT: Nose without bleeding, purulent drainage or septal hematoma. Throat without erythema, tonsillar hypertrophy or exudate. Uvula midline. Airway patent. NECK: Trachea midline. Not able to flex spontaneously. On flexing her neck she reports pain in neck but I was able to move neck side to side. No LN sophie appreciated. Oral exam: erythema noted, secretions pooling. Good gag reflex. patent airway. CARDIOVASCULAR: Regular rate and rhythm without murmurs, gallops, or rubs. RESPIRATORY: Clear to auscultation. Breath sounds equal bilaterally. No wheezes , rales, or rhonchi. GASTROINTESTINAL: Abdomen soft, non-tender, nondistended. MUSCULOSKELETAL: Extremities without clubbing, cyanosis, or edema. No joint tenderness, effusion, or edema noted. No calf tenderness. Negative Homans sign bilaterally. NEUROLOGICAL: Awake and alert. difficult to assess muscle strength. 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 Able to dorsiflex and plantar flex at ankle but not able to actively flex at knee level unsure if this is due to extreme weakness. Psych cooperative IV line sites with no e.o infection. Assessment & Plan Remarks Septic Shock (fever, leucocytosis, Source: GI, bacteremia, hypotension and lactic acidosis) Acute onset of GI pathology (N,V,Diarrhea, abnormal LFTs, elevation of bili) Acute renal failure (prerenal, sepsis) Acute onset tingling numbness with generalized weakness (starting lower body progressively involving UE) Rule out GB syndrome: low probability Acute thrombocytopenia with DIC like picture (HUS, sepsis) Tingling numbness: ? metabolic vs GB syndrome. Rash: ? drug induced vs viral process. Recs: Continue Cefepime IV renal dose adjusted by me. Continue Flagyl IV Continue Daptomycin IV (ASP: acute renal failure, low platelets) Rash: faint macular rash. observe. No change in Antibiotics. Ok to given prn benadryl. if any resp compromised please call me. Needs aggressive replacements of fluids and electrolytes given ongoing diarrhea. Consider K in maintenance fluid in addition to prn doses. Blood cultures x 2 Follow Stool studies. Follow clinically. [place] Patient and Dad: spent time in excess of 40 mins. Critical thinking and decision making. Krista Chakraborty MD May 21, 2017 14:21
[2017-05-21] MEDS: CEFEPIME INJ 2,000 MG in SODIUM CHLORIDE 0.9% INJ 100 ML IV SCH ×4 (15:30)
[2017-05-21] MEDS: POTASSIUM CHLOR 20 MEQ PREMIX 100 ML IV SCH ×8 (15:38→22:42)
--- NOTE | 2017-05-21 15:58 | PD.CONS ---
HPI History of Present Illness This is a 21 year old female who presented to the emergency room for evaluation of nausea, vomiting, diarrhea, with no urine output. Patient currently attends [facility] and is in the [employer] program. She played at a tournament on Saturday and went home to take a nap afterwards. When she awakened, she had a few episodes of nausea and vomiting (nonbloody emesis). She also had several episodes of diarrhea. She had generalized weakness that continued to worsen over the next few days along with an intermittent fever. She came to the emergency room for worsening symptoms with severe myalgia and weakness. She was admitted for septic shock with nausea, vomiting, diarrhea, acute kidney injury, abnormal liver function test, DIC, thrombocytopenia, and abnormal electrolytes. She is in the intensive care lethargic with generalized weakness and continues to have diarrhea- large amounts clear mucous like. She also had some paresthesias and neurology was consulted for possible Guillain- [place]. Neurology is following and felt that she could have some very early Guillain-[place], but she has also been ill and her symptoms could also be related to her renal failure. She is also being followed by hematology for thrombocytopenia, DIC and feels this is most likely related to sepsis. The patient denies any recent suspicious food. She ate a salad with her parents last Saturday, but states everyone ate the same food and her parents are not ill. There is one steamfitter who reported some flu-like symptoms. The patient has not recently traveled. She has no history of gi issues. There is no family hx of GI problems. Stool studies were sent and negative for enteric pathogens, rotavirus, Cyclospora, wbc, clostridium difficile. Cryptosporidium and giardia pending. She was started on Daptomycin, Cefepime per ID. GI has been consulted for further evaluation and treatment. She is currently resting in bed in no distress. She denies any nausea/vomiting or abdominal pain. She continues to have diarrhea- although this has improved from yesterday. There is no GI bleeding. (Nataly Rodríguez) FORMERLY [facility] Past Medical History Denies Past Surgical History Denies (Natayl Rodríguez) Coded Allergies: No Known Allergies (Unverified Allergy, Unknown, 05/20/17) Medications Allergies Coded Allergies Type Severity Reaction Last Updated Verified No Known Allergies Allergy Unknown 05/20/17 No Active Scripts Medications Dose Route/Sig Max Daily Dose Days Date Category No Active Prescriptions or Reported Medications Rx Family History No family hx of IBD. Paternal grandmother had lung cancer. Another grandparent on father's side had bone cancer Social History No tobacco, etoh, or illicit drug use (Nataly Rodríguez) Review of Systems Constitutional: COMPLAINS OF: Fatigue, Fever, Chills Respiratory: DENIES: Cough Gastrointestinal: COMPLAINS OF: Diarrhea, Nausea, Vomiting, DENIES: Abdominal pain, Black stools, Bloody stools, Constipation ROS Lethargic, generalized weakness (Nataly Rodríguez) GI Exam Vitals I&O Vital Signs Date Time Temp Pulse Resp B/P (MAP) Pulse Ox O2 Delivery O2 Flow Rate FiO2 05/21/17 14:21 114 115/55 05/21/17 14:00 114 05/21/17 12:00 111 05/21/17 12:00 100.0 111 34 118/62 (80) 99 89/64 (72) 05/21/17 12:00 111 126/74 05/21/17 10:00 117 05/21/17 08:13 95 Nasal Cannula 3.00 05/21/17 08:00 99.3 116 35 122/66 (84) 98 89/64 (72) 05/21/17 08:00 117 05/21/17 07:00 Nasal Cannula 3.00 98 05/21/17 06:50 Nasal Cannula 3.00 93 05/21/17 06:47 116 124/70 05/21/17 06:38 116 120/68 05/21/17 06:00 114 120/68 (85) 05/21/17 06:00 114 05/21/17 05:57 120 131/64 05/21/17 04:47 115 84/57 05/21/17 04:00 99.6 118 30 112/59 (76) 98 89/64 (72) 05/21/17 04:00 118 05/21/17 02:00 116 05/21/17 01:55 114 91/60 05/21/17 00:57 120 99/63 05/21/17 00:30 121 100/63 05/21/17 00:20 127 108/63 05/21/17 00:13 129 114/67 05/21/17 00:00 127 05/21/17 00:00 99.1 127 30 132/75 (94) 98 107/66 (80) 05/20/17 23:45 128 100/59 05/20/17 23:18 127 98/60 05/20/17 23:00 127 98/60 05/20/17 22:20 122 95/54 05/20/17 22:00 122 05/20/17 21:31 129 95/60 05/20/17 21:04 128 94/56 05/20/17 20:46 123 92/54 05/20/17 20:18 95 Nasal Cannula 2.00 05/20/17 20:00 99.1 124 29 114/58 (76) 98 93/61 (72) 05/20/17 20:00 124 05/20/17 20:00 124 05/20/17 19:00 Nasal Cannula 2.00 98 05/20/17 18:42 122 92/55 05/20/17 18:00 124 05/20/17 16:45 120 80/41 05/20/17 16:45 94 4.00 05/20/17 16:15 100 Nasal Cannula 4.00 05/20/17 16:00 98.9 122 18 81/52 (62) 90 05/20/17 16:00 93 Nasal Cannula 2.00 05/20/17 16:00 122 I/O 05/20/17 05/20/17 05/20/17 05/21/17 05/21/17 05/21/17 07:00 15:00 23:00 07:00 15:00 23:00 Intake Total 3675 ml 2635 ml 1887 ml Output Total 400 ml 1350 ml Balance 3275 ml 1285 ml 1887 ml Intake IV Total 3675 ml 2635 ml 1887 ml Output Urine Total 400 ml 850 ml Stool Total 500 ml # Bowel Movements 3 Imaging Last Impressions Neck CT 05/20/171632 Signed Impressions: Service Date/Time: Saturday, May 20, 2017 17:26 - CONCLUSION: 1. Limited evaluation secondary to lack of intravenous contrast. No masses are identified 2. Nonspecific slightly enlarged nodes in group 2 on the right Isma Randhawa MD Chest CT 05/20/171632 Signed Impressions: Service Date/Time: Saturday, May 20, 2017 17:29 - CONCLUSION: Patchy airspace disease both lung base is without pleural effusion. Zeus Pulido MD FACR Abdomen/Pelvis CT 05/20/17 1633 Signed Impressions: Service Date/Time: Saturday, May 20, 2017 17:29 - CONCLUSION: Limited exam without oral intravenous contrast. There is no free air. Do not see evidence for an abscess.. Zeus Pulido MD FACR Chest X-Ray 05/20/17 0930 Signed Impressions: Service Date/Time: Saturday, May 20, 2017 09:45 - CONCLUSION: No acute disease. Zeus Pulido MD FACR Abdomen Ultrasound 05/20/17 0000 Signed Impressions: Service Date/Time: Saturday, May 20, 2017 12:08 - CONCLUSION: Scattered small hyperechoic nonspecific there is left lobe of the liver. There are no gallstones. CT scan with contrast may be of benefit. Zeus Pulido MD FACR Laboratory Test 05/20/17 16:40 05/20/17 16:45 05/20/17 16:50 05/20/17 19:15 Blood Gas Puncture Site CEASAR Blood Gas Patient Temperature 98.6 Blood Gas HCO3 11 mmol/L Blood Gas Base Excess -14.9 mmol/L Blood Gas Oxygen Saturation 95 % Arterial Blood pH 7.25 Arterial Blood Partial Pressure CO2 26 mmHg Arterial Blood Partial Pressure O2 98 mmHg Arterial Blood Oxygen Content 13.8 Vol % Arterial Blood Carboxyhemoglobin 0.6 % Arterial Blood Methemoglobin 0.9 % Blood Gas Hemoglobin 10.3 G/DL Oxygen Delivery Device NASAL CANNULA Blood Gas Liter Flow 4 L/M Nasal Screen MRSA (PCR) MRSA NOT DETECTED White Blood Count 13.6 TH/MM3 Red Blood Count 3.63 MIL/MM3 Hemoglobin 10.6 GM/DL Hematocrit 32.7 % Mean Corpuscular Volume 90.1 FL Mean Corpuscular Hemoglobin 29.3 PG Mean Corpuscular Hemoglobin Concent 32.6 % Red Cell Distribution Width 12.8 % Platelet Count 108 TH/MM3 Mean Platelet Volume 10.0 FL Neutrophils (%) (Auto) 96.1 % Lymphocytes (%) (Auto) 1.3 % Monocytes (%) (Auto) 1.4 % Eosinophils (%) (Auto) 1.0 % Basophils (%) (Auto) 0.2 % Neutrophils # (Auto) 13.1 TH/MM3 Lymphocytes # (Auto) 0.2 TH/MM3 Monocytes # (Auto) 0.2 TH/MM3 Eosinophils # (Auto) 0.1 TH/MM3 Basophils # (Auto) 0.0 TH/MM3 CBC Comment AUTO DIFF Differential Total Cells Counted 100 Neutrophils % (Manual) 51 % Band Neutrophils % 30 % Lymphocytes % 1 % Monocytes % 2 % Neutrophils # (Manual) 13.2 TH/MM3 Metamyelocytes 14 % Myelocytes 2 % Differential Comment FINAL DIFF MANUAL Toxic Vacuolation PRESENT Dohle Bodies PRESENT Platelet Estimate LOW Platelet Morphology Comment ENLARGED Ovalocytes 1+ Reina Cells 1+ Erythrocyte Sedimentation Rate 25 mm/hr Fibrinogen 426 mg/dL Potassium Level 3.8 MEQ/L Lactic Acid Level 5.3 mmol/L Magnesium Level 1.1 MG/DL Total Bilirubin 4.4 MG/DL Direct Bilirubin 3.4 MG/DL Indirect Bilirubin 1.0 MG/DL Total Creatine Kinase 620 U/L Creatine Kinase MB 12.1 NG/ML Creatine Kinase MB % 2.0 % C-Reactive Protein 16.60 MG/DL Vitamin B12 Level 1312 PG/ML Free Thyroxine 1.44 NG/DL Thyroid Stimulating Hormone 3rd Gen 1.550 uIU/ML HIV (1&2) Antibody NEGATIVE Total Protein 4.7 GM/DL Rapid Plasma Reagin NON-REACTIVE Test 05/20/17 19:30 05/20/17 19:55 05/20/17 20:50 05/21/17 04:40 Potassium Level 3.9 MEQ/L 3.0 MEQ/L Urine Random Potassium 47 MEQ/L Urine Random Chloride 15 MEQ/L Blood Gas Puncture Site ART LINE Blood Gas Patient Temperature 98.6 Blood Gas HCO3 13 mmol/L Blood Gas Base Excess -12.2 mmol/L Blood Gas Oxygen Saturation 96 % Arterial Blood pH 7.27 Arterial Blood Partial Pressure CO2 30 mmHg Arterial Blood Partial Pressure O2 119 mmHg Arterial Blood Oxygen Content 14.2 Vol % Arterial Blood Carboxyhemoglobin 0.8 % Arterial Blood Methemoglobin 1.0 % Blood Gas Hemoglobin 10.3 G/DL Oxygen Delivery Device NASAL CANNULA Blood Gas Liter Flow 2 L/M White Blood Count 8.4 TH/MM3 Red Blood Count 3.13 MIL/MM3 Hemoglobin 9.8 GM/DL Hematocrit 27.9 % Mean Corpuscular Volume 89.2 FL Mean Corpuscular Hemoglobin 31.2 PG Mean Corpuscular Hemoglobin Concent 35.0 % Red Cell Distribution Width 13.1 % Platelet Count 76 TH/MM3 Mean Platelet Volume 9.8 FL Blood Urea Nitrogen 45 MG/DL Creatinine 3.37 MG/DL Random Glucose 149 MG/DL Total Protein 4.8 GM/DL Albumin 2.4 GM/DL Calcium Level 6.4 MG/DL Phosphorus Level 3.5 MG/DL Magnesium Level 1.6 MG/DL Alkaline Phosphatase 61 U/L Aspartate Amino Transf (AST/SGOT) 75 U/L Alanine Aminotransferase (ALT/SGPT) 52 U/L Lactate Dehydrogenase 252 U/L Total Bilirubin 3.4 MG/DL Direct Bilirubin 2.7 MG/DL Sodium Level 136 MEQ/L Chloride Level 104 MEQ/L Carbon Dioxide Level 18.7 MEQ/L Anion Gap 13 MEQ/L Estimat Glomerular Filtration Rate 21 ML/MIN Protein Corrected Calcium 7.5 MG/DL Indirect Bilirubin 0.7 MG/DL Test 05/21/17 05:48 05/21/17 06:44 05/21/17 11:30 Blood Gas Puncture Site ART LINE Blood Gas Patient Temperature 98.6 Blood Gas HCO3 18 mmol/L Blood Gas Base Excess -6.3 mmol/L Blood Gas Oxygen Saturation 94 % Arterial Blood pH 7.40 Arterial Blood Partial Pressure CO2 29 mmHg Arterial Blood Partial Pressure O2 78 mmHg Arterial Blood Oxygen Content 11.6 Vol % Arterial Blood Carboxyhemoglobin 1.0 % Arterial Blood Methemoglobin 0.9 % Blood Gas Hemoglobin 8.7 G/DL Oxygen Delivery Device NASAL CANNULA Blood Gas Liter Flow 2 L/M Prothrombin Time 18.7 SEC Prothromb Time International Ratio 1.7 RATIO Activated Partial Thromboplast Time 42.8 SEC Fibrinogen 449 mg/dL Potassium Level 2.9 MEQ/L Calcium Level 7.1 MG/DL Magnesium Level 2.4 MG/DL Date/Time Source Procedure Growth Status 05/20/17 16:50 Blood Peripheral Aerobic Blood Culture - Preliminary NO GROWTH IN 1 DAY Resulted 05/20/17 16:50 Blood Peripheral Anaerobic Blood Culture - Preliminary NO GROWTH IN 1 DAY Resulted 05/20/17 13:30 Stool Stool Cyclospora Exam - Final NO CYCLOSPORA SEEN Resulted 05/20/17 13:30 Stool Stool Cryptosporidium Exam Pending Resulted 05/20/17 13:30 Stool Stool Stool Pus (KEYANA) - Final NO WBC'S SEEN Resulted 05/20/17 13:30 Stool Stool Giardia Antigen (KEYANA) Pending Resulted 05/20/17 09:40 Throat Group A Streptococcus Screen - Preliminary NO BETA STREPTOCOCCI ISOLATED AT 24 H... Resulted 05/20/17 14:00 Urine Random Urine Urine Culture - Preliminary NO GROWTH IN 24 HOURS. Resulted Physical Examination HEENT: Normocephalic; atraumatic; no jaundice. CHEST: Resp even/unlabored. CARDIAC: ST ABDOMEN: Soft, nondistended, nontender; no hepatosplenomegaly; bowel sounds are present in all four quadrants. Rectal bag with large amount of mucous like stool- clear EXTREMITIES: No clubbing, cyanosis, or edema. SKIN: Normal; no rash; no jaundice. [employer]IVER: No focal deficits; alert and oriented times three. (Nataly Rodríguez) Assessment and Plan Plan ASSESSMENT: - N/V/D. Sudden onset on Saturday. CT Scan abdomen and pelvis (05/20/17)---> Limited exam without oral intravenous contrast, there is no free air. Do not see evidence for an abscess. One contact with flu like symptoms, no recent travel, suspicious food. Stool studies were sent and negative for enteric pathogens, rotavirus, Cyclospora, wbc, clostridium difficile. Cryptosporidium and giardia pending. Hepatitis panel negative, Monscreen negative, HIV negative , RPR nonreactive, Mycoplasma pending. She was started on Daptomycin, Cefepime per ID. - Elevated LFTs. T. Bili 2.7, AST 75, ALT 52, Alk Phosph 61. - Sepsis. Flu negative, BCx no growth 1 day. Stool studies negative so far. Abx per ID. - Thrombocytopenia/Coagulopathy. Hematology following, likely related to sepsis. - HANSEL. Creat 3.37. PLAN: - Clear liquids - Await final stool studies - Abx per ID - Monitor labs - Further recommendations to follow based on results of above - Pt seen and examined by Dr. Marsh and myself and this note is written on her behalf (Nataly Rodríguez) Physician Comments seen, examined agree with above if stool studies negative consider egd/colonoscopy in am (Merissa Marsh MD) Nataly Rodríguez May 21, 2017 15:58 Merissa Marsh MD May 21, 2017 16:37
[2017-05-21] MEDS: SODIUM CHLORID 0.9% 500 ML INJ 500 ML IV SCH ×2 (17:18)
--- NOTE | 2017-05-21 18:18 | HHI.PR ---
Review/Management Daily Summary 05/21 alert and oriented, seen about an hour ago msr absent legs motor improved, now overall 4/5 improving weakness from sepsis, not GBS, watch neuro course Subjective Subjective Comments No new neuro events reported No headache Active Medications Current Medications Medications (Trade) Dose Ordered Sig/Juju Route Start Time Stop Time Status Last Admin Sodium Chloride 1,000 ml @ 125 mls/hr Q8H IV 05/20/17 11:46 05/21/17 11:46 (Zofran Inj) 4 mg Q6H PRN IV PUSH 05/20/17 12:00 05/21/17 05:56 (Duoneb Neb) 1 ampule Q2HR NEB PRN INH 05/20/17 12:00 (Heparin Inj) 5,000 units Q12H SQ 05/20/17 13:00 05/21/17 13:59 Miscellaneous Information 1 [id number] XX 05/20/17 12:00 05/20/17 20:24 (Chlorhexidine 2% Cloth) 3 pack Taper DAILY@04 TOP 05/21/17 04:00 05/17/18 03:59 (Chlorhexidine 2% Cloth) 3 pack UNSCH PRN TOP 05/20/17 12:00 Norepinephrine Bitartrate 250 ml @ 7.5 mls/hr TITRATE PRN IV 05/20/17 14:45 05/21/17 00:13 (Brethine Inj) 1 mg UNSCH PRN SQ 05/20/17 14:45 Sodium Bicarbonate 150 meq/Dextrose 1,150 ml @ 150 mls/hr [id number] IV 05/20/17 14:45 05/21/17 15:29 Cefepime HCl 2000 mg/Sodium Chloride 100 ml @ 200 mls/hr Q24H IV 05/20/17 16:00 05/21/17 15:30 Metronidazole 100 ml @ 100 mls/hr Q8H IV 05/20/17 16:00 05/21/17 15:34 Vasopressin 40 units/Dextrose 100 ml @ 6 mls/hr [id number] IV 05/20/17 16:32 05/21/17 05:57 Dobutamine HCl/ Dextrose 250 ml @ 10.65 mls/ hr [id number] PRN IV 05/20/17 16:32 05/21/17 14:21 Sodium Chloride 500 ml @ 20 mls/hr Q24H IV 05/20/17 19:15 05/21/17 17:18 Daptomycin 700 mg/ Sodium Chloride 100 ml @ 200 mls/hr Q48H IV 05/22/17 20:00 Potassium Chloride 100 ml @ 50 mls/hr Q2H IV 05/21/17 16:00 05/22/17 01:59 05/21/17 17:18 Allergies Allergies Coded Allergies No Known Allergies (Unverified Allergy, Unknown, 05/20/17) Exam I&O / VS 05/21/17 05/21/17 05/22/17 15:00 23:00 07:00 Intake Total 1887 ml 5164.7 ml Output Total 2550 ml Balance 1887 ml 2614.7 ml Intake IV Total 1887 ml 5164.7 ml Output Urine Total 1650 ml Stool Total 900 ml Vital Signs Date Time Temp Pulse Resp B/P (MAP) Pulse Ox O2 Delivery O2 Flow Rate FiO2 05/21/17 18:00 99 103/56 (72) 05/21/17 18:00 99 05/21/17 16:00 98.8 114 27 112/59 (76) 97 89/64 (72) 05/21/17 16:00 114 05/21/17 14:21 114 115/55 05/21/17 14:00 114 05/21/17 12:00 111 05/21/17 12:00 100.0 111 34 118/62 (80) 99 89/64 (72) 05/21/17 12:00 111 126/74 05/21/17 10:00 117 05/21/17 08:13 95 Nasal Cannula 3.00 05/21/17 08:00 99.3 116 35 122/66 (84) 98 89/64 (72) 05/21/17 08:00 117 05/21/17 07:00 Nasal Cannula 3.00 98 05/21/17 06:50 Nasal Cannula 3.00 93 05/21/17 06:47 116 124/70 05/21/17 06:38 116 120/68 05/21/17 06:00 114 120/68 (85) 05/21/17 06:00 114 05/21/17 05:57 120 131/64 05/21/17 04:47 115 84/57 05/21/17 04:00 99.6 118 30 112/59 (76) 98 89/64 (72) 05/21/17 04:00 118 05/21/17 02:00 116 05/21/17 01:55 114 91/60 05/21/17 00:57 120 99/63 05/21/17 00:30 121 100/63 05/21/17 00:20 127 108/63 05/21/17 00:13 129 114/67 05/21/17 00:00 127 05/21/17 00:00 99.1 127 30 132/75 (94) 98 107/66 (80) 05/20/17 23:45 128 100/59 05/20/17 23:18 127 98/60 05/20/17 23:00 127 98/60 05/20/17 22:20 122 95/54 05/20/17 22:00 122 05/20/17 21:31 129 95/60 05/20/17 21:04 128 94/56 05/20/17 20:46 123 92/54 05/20/17 20:18 95 Nasal Cannula 2.00 05/20/17 20:00 99.1 124 29 114/58 (76) 98 93/61 (72) 05/20/17 20:00 124 05/20/17 20:00 124 05/20/17 19:00 Nasal Cannula 2.00 98 05/20/17 18:42 122 92/55 Objective Radiology Results Last [address] 05/20/17 163 Signed Impressions: Service Date/Time: Saturday, May 20, 2017 17:26 - CONCLUSION: 1. Limited evaluation secondary to lack of intravenous contrast. No masses are identified 2. Nonspecific slightly enlarged nodes in group 2 on the right Isma Randhawa MD Chest CT 05/20/171632 Signed Impressions: Service Date/Time: Saturday, May 20, 2017 17:29 - CONCLUSION: Patchy airspace disease both lung base is without pleural effusion. Zeus Pulido MD FACR Abdomen/Pelvis CT 05/20/171632 Signed Impressions: Service Date/Time: Saturday, May 20, 2017 17:29 - CONCLUSION: Limited exam without oral intravenous contrast. There is no free air. Do not see evidence for an abscess.. Zeus Pulido MD FACR Chest X-Ray 05/20/17 0930 Signed Impressions: Service Date/Time: Saturday, May 20, 2017 09:45 - CONCLUSION: No acute disease. Zeus Pulido MD FACR Chest X-Ray 05/20/17 0000 Signed Impressions: Service Date/Time: Sunday, May 21, 2017 04:22 - CONCLUSION: Line in good position without pneumothorax. Zeus Pulido MD FACR Abdomen Ultrasound 05/20/17 0000 Signed Impressions: Service Date/Time: Saturday, May 20, 2017 12:08 - CONCLUSION: Scattered small hyperechoic nonspecific there is left lobe of the liver. There are no gallstones. CT scan with contrast may be of benefit. Zeus Pulido MD FACR Micro and Labs Laboratory Tests Test 05/20/17 19:15 05/20/17 19:30 05/20/17 19:55 05/20/17 20:50 Total Protein 4.7 Rapid Plasma Reagin NON-REACTIVE Potassium Level 3.9 Urine Random Potassium 47 Urine Random Chloride 15 Blood Gas Puncture Site ART LINE Blood Gas Patient Temperature 98.6 Blood Gas HCO3 13 Blood Gas Base Excess -12.2 Blood Gas Oxygen Saturation 96 Arterial Blood pH 7.27 Arterial Blood Partial Pressure CO2 30 Arterial Blood Partial Pressure O2 119 Arterial Blood Oxygen Content 14.2 Arterial Blood Carboxyhemoglobin 0.8 Arterial Blood Methemoglobin 1.0 Blood Gas Hemoglobin 10.3 Oxygen Delivery Device NASAL CANNULA Blood Gas Liter Flow 2 Test 05/21/17 04:40 05/21/17 05:48 05/21/17 06:44 05/21/17 11:30 White Blood Count 8.4 Red Blood Count 3.13 Hemoglobin 9.8 Hematocrit 27.9 Mean Corpuscular Volume 89.2 Mean Corpuscular Hemoglobin 31.2 Mean Corpuscular Hemoglobin Concent 35.0 Red Cell Distribution Width 13.1 Platelet Count 76 Mean Platelet Volume 9.8 Blood Urea Nitrogen 45 Creatinine 3.37 Random Glucose 149 Total Protein 4.8 Albumin 2.4 Calcium Level 6.4 7.1 Phosphorus Level 3.5 Magnesium Level 1.6 2.4 Alkaline Phosphatase 61 Aspartate Amino Transf (AST/SGOT) 75 Alanine Aminotransferase (ALT/SGPT) 52 Lactate Dehydrogenase 252 Total Bilirubin 3.4 Direct Bilirubin 2.7 Sodium Level 136 Potassium Level 3.0 2.9 Chloride Level 104 Carbon Dioxide Level 18.7 Anion Gap 13 Estimat Glomerular Filtration Rate 21 Protein Corrected Calcium 7.5 Indirect Bilirubin 0.7 Blood Gas Puncture Site ART LINE Blood Gas Patient Temperature 98.6 Blood Gas HCO3 18 Blood Gas Base Excess -6.3 Blood Gas Oxygen Saturation 94 Arterial Blood pH 7.40 Arterial Blood Partial Pressure CO2 29 Arterial Blood Partial Pressure O2 78 Arterial Blood Oxygen Content 11.6 Arterial Blood Carboxyhemoglobin 1.0 Arterial Blood Methemoglobin 0.9 Blood Gas Hemoglobin 8.7 Oxygen Delivery Device NASAL CANNULA Blood Gas Liter Flow 2 Prothrombin Time 18.7 Prothromb Time International Ratio 1.7 Activated Partial Thromboplast Time 42.8 Fibrinogen 449 Date/Time Source Procedure Growth Status 05/20/17 16:50 Blood Peripheral Aerobic Blood Culture - Preliminary NO GROWTH IN 1 DAY Resulted 05/20/17 16:50 Blood Peripheral Anaerobic Blood Culture - Preliminary NO GROWTH IN 1 DAY Resulted 05/20/17 13:30 Stool Stool Cyclospora Exam - Final NO CYCLOSPORA SEEN Resulted 05/20/17 13:30 Stool Stool Cryptosporidium Exam Pending Resulted 05/20/17 13:30 Stool Stool Stool Pus (KEYANA) - Final NO WBC'S SEEN Resulted 05/20/17 13:30 Stool Stool Giardia Antigen (KEYANA) Pending Resulted 05/20/17 09:40 Throat Group A Streptococcus Screen - Preliminary NO BETA STREPTOCOCCI ISOLATED AT 24 H... Resulted 05/20/17 14:00 Urine Random Urine Urine Culture - Preliminary NO GROWTH IN 24 HOURS. Resulted Sandeep Chang MD May 21, 2017 18:18
[2017-05-22] VITALS (14 sets, daily range): BP systolic 95–117; BP diastolic 51–72; PULSE 92–108; RESP 24–34; TEMP 98.4–99.3; O2SAT 92–100
[2017-05-22] MEDS: metroNIDAZOLE 500 MG INJ 100 ML IV SCH ×6 (00:45→16:54)
[2017-05-22] MEDS: POTASSIUM CHLOR 20 MEQ PREMIX 100 ML IV SCH ×2 (00:45)
[2017-05-22] MEDS: HEPARIN SODIUM - SQ 10,000 UNITS/ML VIAL SQ SCH ×4 (00:56→12:22)
[2017-05-22] MEDS: CHLORHEXIDINE GLUCONATE 2 % 1 PACK (2 CLOTHS) TOP SCH ×2 (01:13)
[2017-05-22] MEDS: SODIUM CHLOR 0.9% 1000 ML INJ 1,000 ML IV SCH ×2 (04:21)
[2017-05-22 05:15] LABS: HEMATOCRIT 27.2 % (35.0-46.0); HEMOGLOBIN 9.3 GM/DL (11.6-15.3); MEAN CELL VOLUME 89.5 FL (80.0-100.0); MEAN CORPUSCULAR HEMOGLOBIN 30.8 PG (27.0-34.0); MEAN CORPUSCULAR HGB CONC 34.4 % (32.0-36.0); PLATELET COUNT 58 TH/MM3 (150-450); RED BLOOD COUNT 3.04 MIL/MM3 (4.00-5.30); RED CELL DISTRIBUTION WIDTH 13.3 % (11.6-17.2); WHITE BLOOD COUNT 10.1 TH/MM3 (4.0-11.0)
[2017-05-22 05:27] LABS: INTERNATIONAL NORMALIZED RATIO 1.1 RATIO; PROTHROMBIN TIME - PATIENT 12.3 SEC (9.8-11.6)
[2017-05-22 05:44] LABS: ALBUMIN 1.9 GM/DL (3.4-5.0); BICARBONATE 26.4 MEQ/L (21.0-32.0); CALCIUM 7.4 MG/DL (8.5-10.1); CREATININE 1.64 MG/DL (0.50-1.00); DIRECT BILIRUBIN ADULT 2.3 MG/DL (0.0-0.2); INDIRECT BILIRUBIN 0.7 MG/DL (0.0-0.8); TOTAL PROTEIN 4.4 GM/DL (6.4-8.2)
[2017-05-22 05:47] LABS: CALCIUM-PROTEIN CORRECTED 8.9 MG/DL (8.5-10.1)
[2017-05-22] MEDS ORDERED: MAGNESIUM OXIDE 400 MG TAB PO PRN ×2 (06:15)
[2017-05-22] MEDS ORDERED: POTASSIUM PHOSPHATE MONOBASIC 500 MG TAB PO/TUBE PRN ×2 (06:15)
[2017-05-22] MEDS ORDERED: CALCIUM GLUCONATE INJ 3 GM in SODIUM CHLORIDE 0.9% INJ 100 ML IV ONE ×4 (06:15)
[2017-05-22] MEDS ORDERED: MAGNESIUM SULFATE INJ 2 GM in SODIUM CHLORIDE 0.9% INJ 96 ML IV PRN ×4 (06:15)
[2017-05-22] MEDS ORDERED: SODIUM PHOSPHATE INJ 30 MMOL in SODIUM CHLOR 0.9% 250 ML INJ 240 ML IV PRN ×4 (06:15)
[2017-05-22] MEDS ORDERED: POTASSIUM CHLOR 20 MEQ PREMIX 100 ML IV PRN ×4 (06:15)
[2017-05-22] MEDS ORDERED: POTASSIUM PHOSPHATE MONOBASIC 500 MG TAB PO PRN ×2 (06:15)
[2017-05-22] MEDS ORDERED: POTASSIUM CHLOR 40 MEQ PREMIX 100 ML IV PRN ×4 (06:15)
[2017-05-22] MEDS ORDERED: MAGNESIUM SULFATE INJ 4 GM in SODIUM CHLORIDE 0.9% INJ 92 ML IV PRN ×4 (06:15)
[2017-05-22] MEDS ORDERED: POTASSIUM PHOSPHATE INJ 30 MMOL in SODIUM CHLOR 0.9% 250 ML INJ 250 ML IV PRN ×4 (06:15)
[2017-05-22] MEDS: LACTATED RINGER'S 1000 ML INJ 1,000 ML IV SCH ×4 (06:51→17:58)
--- NOTE | 2017-05-22 07:31 | RADRPT ---
EXAM DATE/TIME: 05/22/2017 07:05 [facility] COMPARISON: CHEST SINGLE AP, May 20, 2017, 10:30. INDICATIONS : Short of breath for two days. MEDICAL HISTORY : Renal failure, acute SURGICAL HISTORY : None. ENCOUNTER: Subsequent ACUITY: 2 days PAIN SCORE: 0/10 LOCATION: Bilateral chest FINDINGS: Extensive air space disease has developed throughout the mid and lower lung nassar. Significant conso lidation is evident in both bases especially on the left. The lungs are hypoaerated. Heart is mildly enlarged. Left subclavian central line remains in good position. CONCLUSION: 1. Rapid development of extensive airspace disease which may represent pulmonary edema considering th e patient's history. 2. Cardiomegaly Paul Malone MD on May 22, 2017 at 7:28 Board Certified Radiologist. This report was verified electronically.
--- NOTE | 2017-05-22 07:43 | HHI.CCPN ---
Subjective Remarks/Hospital Course Hospital Course: This is a 21yF with no remarkable past medical history who presents to the ER with a 3 day history of nausea, vomiting, and liquid diarrhea. 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 the emesis she describes as clear to somewhat brown, without blood, not coffee grounds, without a bilious appearance. she describes her diarrhea as completely watery, again without blood or dark black color. It is not associated with food. She endorses some generalized abdominal pain, but cannot point to any one area. She also endorses fever and chills over this time period. Denies chest pain, shortness of breath. She also endorses some "tingling" of her hands and feet, although this is difficult to describe, she does describe them as "weak" and "fatigued." She also states she has not urinated x 48h. In the emergency department, she was hypotensive and tachycardic which both responded to ivf. Her laboratory data is significant for leukocytosis to 14k, thrombocytopenia 140k, INR 2.0, elevated t bili at 5.5, Cr of > 6, lactate of almost 7, significant anion-gap metabolic acidosis. Critical care medicine is consulted to evaluate and manage her septic shock and multi-organ system dysfunction. Subjective: 05/21: clinically beginning to improve. UOP increased to 60 cc/hr overnight. Cr downtrended to 3. Acidosis improving slowly. nausea persists and she still endorses generalized crampy abdominal pain, though she cannot put a finger on any one area. with regard to her strength, she still has generalized subjective weakness. vasopressors are at lower doses, but persists on inotropes and multiple vasopressors. 2d formal echocardiogram completed overnight (on inotropic therapy) and demonstrates LVEF 60%, hyperdynamic, no valvular lesions. Infectious work-up and multiple cultures still outstanding. 05/22: renal function continues to improve. still large volume watery diarrhea. less nausea today. slightly short of breath. remains on low-dose vasopressin to maintain map > 65mmHg. platelets continue to drop, but fibrinogen stable. Objective Vital Signs Date Time Temp Pulse Resp B/P (MAP) Pulse Ox O2 Delivery O2 Flow Rate FiO2 05/22/17 06:00 108 95/53 (67) 05/22/17 04:00 99.1 30 96 05/22/17 02:00 Nasal Cannula 4.00 05/21/17 07:00 98 Intake and Output 05/22/17 05/22/17 05/23/17 08:00 16:00 00:00 Intake Total 2696 ml Output Total 1500 ml Balance 1196 ml Result Diagram: 05/22/17 0447 05/22/17 0447 Other Results Microbiology Date/Time Source Procedure Growth Status 05/20/17 13:30 Stool Stool Rotavirus Antigen - Final NEGATIVE - ROTAVIRUS ANTIGEN IS ABSEN... Complete 05/20/17 12:20 Stool Stool - Final Complete 05/20/17 09:40 Nasal Aspirate Influenza Types A,B Antigen (KEYANA) - Final NEGATIVE FOR FLU A AND B ANTIGEN.... Complete 05/20/17 09:40 Throat Group A Streptococcus Screen (KEYANA) - Final Complete Laboratory Tests Test 05/21/17 19:45 Blood Gas Puncture Site ART LINE Blood Gas Patient Temperature 98.6 Blood Gas HCO3 20 mmol/L (22-26) Blood Gas Base Excess -3.9 mmol/L (-2-2) Blood Gas Oxygen Saturation 97 % (90-100) Arterial Blood pH 7.44 (7.380-7.420) Arterial Blood Partial Pressure CO2 29 mmHg (38-42) Arterial Blood Partial Pressure O2 107 mmHg (61-120) Arterial Blood Oxygen Content 10.2 Vol % (12.0-20.0) Arterial Blood Carboxyhemoglobin 1.2 % (0-4) Arterial Blood Methemoglobin 0.8 % (0-2) Blood Gas Hemoglobin 7.3 G/DL (12.0-16.0) Oxygen Delivery Device NASAL CANNULA Blood Gas Liter Flow 3 L/M Imaging Last Impressions Neck CT 05/20/17 1633 Signed Impressions: Service Date/Time: Saturday, May 20, 2017 17:26 - CONCLUSION: 1. Limited evaluation secondary to lack of intravenous contrast. No masses are identified 2. Nonspecific slightly enlarged nodes in group 2 on the right Isma Randhawa MD Chest CT 05/20/17 1633 Signed Impressions: Service Date/Time: Saturday, May 20, 2017 17:29 - CONCLUSION: Patchy airspace disease both lung base is without pleural effusion. Zeus Pulido MD FACR Abdomen/Pelvis CT 05/20/17 1633 Signed Impressions: Service Date/Time: Saturday, May 20, 2017 17:29 - CONCLUSION: Limited exam without oral intravenous contrast. There is no free air. Do not see evidence for an abscess.. Zeus Pulido MD FACR Chest X-Ray 05/20/17 0930 Signed Impressions: Service Date/Time: Saturday, May 20, 2017 09:45 - CONCLUSION: No acute disease. Zeus Pulido MD FACR Abdomen Ultrasound 05/20/17 0000 Signed Impressions: Service Date/Time: Saturday, May 20, 2017 12:08 - CONCLUSION: Scattered small hyperechoic nonspecific there is left lobe of the liver. There are no gallstones. CT scan with contrast may be of benefit. Zeus Pulido MD FACR Objective Remarks gen: young female, lying in bed, mild respiratory distress heent: nc. at. perrl. eomi. mucous membranes moist. neck: trachea midline. no jvd. chest: remains tachypneic, respiratory rate stable from yesterday. 3L o2 by NC. cv: tachycardic rate, regular rhythm. sinus by tele. CVP 4 abd: soft, mild generalized tenderness to palpation diffusely, no guarding, rebound. nondistended. extr: warm, improved peripheral perfusion. good cap refill. generalized edema, 1 +. neuro: awake, RASS 0. sensation grossly intact. THIAGO: RUE 4+/5 RLE 4+/5 LUE 4+/5 LLE 4/5. no myoclonus. A/P Assessment and Plan Assessment: 21yF otherwise healthy who presented in near-extremis with multi- organ dysfunction, septic shock, DIC, severe anuric acute kidney injury, acute liver dysfunction. Still on vasopressors, but now starting to get early volume overloaded. CVP still low and has ongoing active diarrhea losses. will d/c bicarb drip and lower total ivf. may be forced to pursue diuresis while still on vasopressors. Weakness is stable. cultures negative to date. No active bleeding despite platelets lower. Remains critically ill with worsening volume overload and still remains on vasopressors, off pathway. Plan by systems: Neurologic: Extremity Weakness - stable. Neck pain - tylenol as needed for pain - neuro consult - frequent neuro checks - unlikely to be Guillain Powell. Respiratory: Atelectasis Pulmonary Edema - wean o2 by NC for spo2 > 92% - aggressive pulmonary toilet. - start early PT/OT. - may be forced to start early diuresis despite ongoing fluid losses. Cardiovascular: Septic Shock - persistent. Myocardial Stunning secondary to septic shock - resolved. - trend cvp - mivf @ 125cc/hr - d/c bicarb drip. - vasopressin at 0.02 units/min - 2d echo 05/21 on dobutamine at 2.5 mcg/kg/min: LVEF 60%, no RWMA, no valvular lesions Renal: Severe oligoanuric Acute Kidney Injury - improving. - nephrology following. - daily bmp -- Strict I/Os - continue Mendoza catheter today - renal ultrasound 05/20: no evidence of hydronephrosis. FEN/GI: Suspected infectious diarrhea Acute liver dysfunction - persistent, slightly improved. Hyponatremia - improving. Hypokalemia Hypocalcemia Anion-gap Metabolic Acidosis - improved. Lactic Acidosis - improved. - trend LFTs - GI consult to assist with hepatic dysfunction and diarrhea - replace K, Ca, Mg. persistently low. - mivf NS @ 125cc/hr - d/c bicarb drip - daily BMP, LFT - serial abg Heme/ID: Leukocytosis - improving. Probable Infectious Diarrhea Septic Shock - persistent. Thrombocytopenia - persistent, worsening Acute Coagulopathy Disseminated Intravascular Coagulation - hematology consult - 4T score low probability for HIT - thrombocytopenia likely combination early DIC with consumption/severe sepsis - elevated INR combination early DIC and hepatic dysfunction, now improved. - trend daily CBC and coags. - Cefepime, flagyl, daptomycin - vazquez cultures pending. - f/u stool studies - peripheral smear Endocrine: Hyperglycemia of critical illness -- SSI, med scale, q6h Prophylaxis: GI Prophylaxis pepcid iv DVT Prophylaxis -- SCDs -- SQH. if platelet count drops below 50k or coagulopathy worsens, will hold pharmacologic DVT prophylaxis. Lines: - 05/20 left SC TLC - Mendoza Dispo: remain in ICU. although some organs show signs of improvement, she persists in multiorgan failure and shock, and remains critically ill. worsening respiratory status today and both early pulmonary edema and persistent volume loss from diarrhea. This patient remains critically ill with one or more organ systems which are or may become a threat to life. I have spent in excess of 33 minutes discontinuously in the care and management of this patient. This time includes frequent reevaluation's throughout the day, the time I spent at bedside managing this critically ill patient while she was in extremis. This time is exclusive of procedures, and includes, but is not limited to, evaluation of the patient, review of the medical record, discussions with family, consultants, nursing staff, or respiratory therapy, and documentation in the medical record. Ricardo Knight MD May 22, 2017 07:42
[2017-05-22] MEDS ORDERED: FUROSEMIDE 20 MG/2 ML VIAL IV PUSH ONE ×4 (09:45→17:45)
[2017-05-22] MEDS ORDERED: POTASSIUM CHLOR 40 MEQ PREMIX 100 ML IV ONE ×2 (10:00)
[2017-05-22 11:04] LABS: ANA SCREEN NEG (NEG)
--- NOTE | 2017-05-22 12:54 | HHI.IDPN ---
Note Infectious Disease Note Chart reviewed Patient in OR for scopies. Off pressors. UO 60cc/hr Diarrhea 1600 cc. A/Plan Suspect secretory diarrhea post infectious inflammatory bowel like picture. Consider stool lytes Consider addition of Asacol for helping reduce secretory component. DC Daptomycin Continue Cefepime IV (will likely deescalate to Levaquin or Ceftriaxone after clinical assessment. Continue Flagyl IV. Overall appears to be improving slightly. Vital Signs Date Time Temp Pulse Resp B/P (MAP) Pulse Ox O2 Delivery O2 Flow Rate FiO2 05/22/17 12:25 99.0 96 20 100/56 (71) 99 05/22/17 07:10 93 Nasal Cannula 2.00 05/22/17 06:00 108 95/53 (67) 05/22/17 06:00 108 05/22/17 04:00 99.1 101 30 95/72 (80) 96 05/22/17 04:00 101 05/22/17 02:00 104 05/22/17 02:00 94 Nasal Cannula 4.00 05/22/17 00:00 98.5 103 24 101/54 (70) 92 05/22/17 00:00 104 05/21/17 22:42 104 95/51 05/21/17 22:00 104 05/21/17 20:48 98 Nasal Cannula 2.00 05/21/17 20:00 104 05/21/17 20:00 99.0 107 24 99/51 (67) 94 Arterial Line 05/21/17 19:00 97 Nasal Cannula 2.00 05/21/17 18:00 99 103/56 (72) 05/21/17 18:00 99 05/21/17 16:00 98.8 114 27 112/59 (76) 97 89/64 (72) 05/21/17 16:00 114 05/21/17 14:21 114 115/55 05/21/17 14:00 114 Laboratory Tests Test 05/21/17 19:45 05/22/17 04:47 Blood Gas Puncture Site ART LINE Blood Gas Patient Temperature 98.6 Blood Gas HCO3 20 mmol/L Blood Gas Base Excess -3.9 mmol/L Blood Gas Oxygen Saturation 97 % Arterial Blood pH 7.44 Arterial Blood Partial Pressure CO2 29 mmHg Arterial Blood Partial Pressure O2 107 mmHg Arterial Blood Oxygen Content 10.2 Vol % Arterial Blood Carboxyhemoglobin 1.2 % Arterial Blood Methemoglobin 0.8 % Blood Gas Hemoglobin 7.3 G/DL Oxygen Delivery Device NASAL CANNULA Blood Gas Liter Flow 3 L/M White Blood Count 10.1 TH/MM3 Red Blood Count 3.04 MIL/MM3 Hemoglobin 9.3 GM/DL Hematocrit 27.2 % Mean Corpuscular Volume 89.5 FL Mean Corpuscular Hemoglobin 30.8 PG Mean Corpuscular Hemoglobin Concent 34.4 % Red Cell Distribution Width 13.3 % Platelet Count 58 TH/MM3 Mean Platelet Volume 10.0 FL Prothrombin Time 12.3 SEC Prothromb Time International Ratio 1.1 RATIO Activated Partial Thromboplast Time 37.7 SEC Blood Urea Nitrogen 24 MG/DL Creatinine 1.64 MG/DL Random Glucose 113 MG/DL Total Protein 4.4 GM/DL Albumin 1.9 GM/DL Calcium Level 7.4 MG/DL Alkaline Phosphatase 64 U/L Aspartate Amino Transf (AST/SGOT) 61 U/L Alanine Aminotransferase (ALT/SGPT) 44 U/L Lactate Dehydrogenase 217 U/L Total Bilirubin 3.0 MG/DL Direct Bilirubin 2.3 MG/DL Sodium Level 139 MEQ/L Potassium Level 3.5 MEQ/L Chloride Level 104 MEQ/L Carbon Dioxide Level 26.4 MEQ/L Anion Gap 9 MEQ/L Estimat Glomerular Filtration Rate 49 ML/MIN Protein Corrected Calcium 8.9 MG/DL Indirect Bilirubin 0.7 MG/DL Krista Chakraborty MD May 22, 2017 12:54
--- NOTE | 2017-05-22 13:17 | GIPROC ---
[facility] [address] [facility]. [facility], [address] COLONOSCOPY PROCEDURE REPORT EXAM DATE: 05/22/2017 PATIENT NAME: Sarah Gunn MR #: [id number] BIRTHDATE: 1995 ENDOSCOPIST: Merissa Marsh MD ORDER #: [id number] GLAZE HANDLER: Sarah Marroquin and Blank Vines STATUS: inpatient INDICATIONS: The patient is a 21 yr old female here for a colonoscopy due to diarrhea, sepsis PROCEDURE PERFORMED: Colonoscopy with biopsy MEDICATIONS: None and Per Anesthesia. PREP QUALITY: good PREP TYPE:Other: ESTIMATED BLOOD LOSS: None CONSENT: The patient understands the risks and benefits of the procedure and understands that these risks include, but are not limited to: sedation, allergic reaction, infection, perforation and/or bleeding. Alternative means of evaluation and treatment include, among others: physical exam, x-rays, and/or surgical intervention. The patient elects to proceed with this endoscopic procedure. medical equipment was checked for proper function. Hand hygiene and appropriate measures for infection prevention was taken. After the risks, benefits and alternatives of the procedure were thoroughly explained, Informed consent was verified, confirmed and timeout was successfully executed by the treatment team. A digital exam revealed no abnormalities of the rectum The Pentax EC-3490Li endoscope was introduced through the anus and advanced to the cecum, which was identified by both the appendix and ileocecal valve. The instrument was then slowly withdrawn as the colon was fully examined. COLON FINDINGS: Normal colon-random biopsies from ascending, transverse, descending, rectum, sigmoid. Retroflexed views revealed internal hemorrhoids and Retroflexed views revealed small internal hemorrhoids The scope was then completely withdrawn from the patient and the procedure terminated. PROCEDURE WITHDRAWAL TIME:6minutes ADVERSE EVENTS: There were no complications. IMPRESSIONS: 1. Normal colon-random biopsies from ascending, transverse, descending, rectum, sigmoid 2. Retroflexed views revealed internal hemorrhoids 3. Retroflexed views revealed small internal hemorrhoids 4. Revealed no abnormalities of the rectum RECOMMENDATIONS: 1. Await biopsy results. Biopsy results will not be ready for 7-10 days. If you don't hear from us in two weeks, call our office for results. 2. Advance diet RECALL: Colonoscopy, pending biopsy results Merissa Marsh MD eSigned: Merissa Marsh MD 05/22/2017 1:17 PM cc:
--- NOTE | 2017-05-22 13:17 | GIPROC ---
[facility] [address] [facility]. [facility], [address] COLONOSCOPY PROCEDURE REPORT EXAM DATE: 05/22/2017 PATIENT NAME: Sarah Gunn MR #: [id number] BIRTHDATE: 1995 ENDOSCOPIST: Merissa Marsh MD ORDER #: [id number] NETWORK COORDINATOR: Sarah Marroquin and Blank Vines STATUS: inpatient INDICATIONS: The patient is a 21 yr old female here for a colonoscopy due to diarrhea, sepsis PROCEDURE PERFORMED: Colonoscopy with biopsy MEDICATIONS: None and Per Anesthesia. PREP QUALITY: good PREP TYPE:Other: ESTIMATED BLOOD LOSS: None CONSENT: The patient understands the risks and benefits of the procedure and understands that these risks include, but are not limited to: sedation, allergic reaction, infection, perforation and/or bleeding. Alternative means of evaluation and treatment include, among others: physical exam, x-rays, and/or surgical intervention. The patient elects to proceed with this endoscopic procedure. medical equipment was checked for proper function. Hand hygiene and appropriate measures for infection prevention was taken. After the risks, benefits and alternatives of the procedure were thoroughly explained, Informed consent was verified, confirmed and timeout was successfully executed by the treatment team. A digital exam revealed no abnormalities of the rectum The Pentax EC-3490Li endoscope was introduced through the anus and advanced to the cecum, which was identified by both the appendix and ileocecal valve. The instrument was then slowly withdrawn as the colon was fully examined. COLON FINDINGS: Normal colon-random biopsies from ascending, transverse, descending, rectum, sigmoid. Retroflexed views revealed internal hemorrhoids and Retroflexed views revealed small internal hemorrhoids The scope was then completely withdrawn from the patient and the procedure terminated. PROCEDURE WITHDRAWAL TIME:6minutes ADVERSE EVENTS: There were no complications. IMPRESSIONS: 1. Normal colon-random biopsies from ascending, transverse, descending, rectum, sigmoid 2. Retroflexed views revealed internal hemorrhoids 3. Retroflexed views revealed small internal hemorrhoids 4. Revealed no abnormalities of the rectum RECOMMENDATIONS: 1. Await biopsy results. Biopsy results will not be ready for 7-10 days. If you don't hear from us in two weeks, call our office for results. 2. Advance diet RECALL: Colonoscopy, pending biopsy results Merissa Marsh MD eSigned: Merissa Marsh MD 05/22/2017 1:17 PM cc:
--- NOTE | 2017-05-22 13:17 | GIPROC ---
[facility] [address] [facility]. [facility], [address] COLONOSCOPY PROCEDURE REPORT EXAM DATE: 05/22/2017 PATIENT NAME: Sarah Gunn MR #: [id number] BIRTHDATE: 1995 ENDOSCOPIST: Merissa Marsh MD ORDER #: [id number] SHALLOT PACKER: Sarah Marroquin and Blank Vines STATUS: inpatient INDICATIONS: The patient is a 21 yr old female here for a colonoscopy due to diarrhea, sepsis PROCEDURE PERFORMED: Colonoscopy with biopsy MEDICATIONS: None and Per Anesthesia. PREP QUALITY: good PREP TYPE:Other: ESTIMATED BLOOD LOSS: None CONSENT: The patient understands the risks and benefits of the procedure and understands that these risks include, but are not limited to: sedation, allergic reaction, infection, perforation and/or bleeding. Alternative means of evaluation and treatment include, among others: physical exam, x-rays, and/or surgical intervention. The patient elects to proceed with this endoscopic procedure. medical equipment was checked for proper function. Hand hygiene and appropriate measures for infection prevention was taken. After the risks, benefits and alternatives of the procedure were thoroughly explained, Informed consent was verified, confirmed and timeout was successfully executed by the treatment team. A digital exam revealed no abnormalities of the rectum The Pentax EC-3490Li endoscope was introduced through the anus and advanced to the cecum, which was identified by both the appendix and ileocecal valve. The instrument was then slowly withdrawn as the colon was fully examined. COLON FINDINGS: Normal colon-random biopsies from ascending, transverse, descending, rectum, sigmoid. Retroflexed views revealed internal hemorrhoids and Retroflexed views revealed small internal hemorrhoids The scope was then completely withdrawn from the patient and the procedure terminated. PROCEDURE WITHDRAWAL TIME:6minutes ADVERSE EVENTS: There were no complications. IMPRESSIONS: 1. Normal colon-random biopsies from ascending, transverse, descending, rectum, sigmoid 2. Retroflexed views revealed internal hemorrhoids 3. Retroflexed views revealed small internal hemorrhoids 4. Revealed no abnormalities of the rectum RECOMMENDATIONS: 1. Await biopsy results. Biopsy results will not be ready for 7-10 days. If you don't hear from us in two weeks, call our office for results. 2. Advance diet RECALL: Colonoscopy, pending biopsy results Merisas Marsh MD eSigned: Merissa Marsh MD 05/22/2017 1:17 PM cc:
--- NOTE | 2017-05-22 13:20 | GIPROC ---
[facility] [address] [facility]. [facility], [address] EGD PROCEDURE REPORT EXAM DATE: 05/22/2017 PATIENT NAME: Sarah Gunn MR #: [id number] BIRTHDATE: 1995 ATTENDING: Merissa Marsh MD ORDER #: [id number] COMPRESSOR MECHANIC BUS: Sarah Marroquin and Blank Vines STATUS: inpatient INDICATIONS: The patient is a 21 yr old female here for an EGD due to diarrhea, sepsis PROCEDURE PERFORMED: EGD w/ biopsy MEDICATIONS: None and Per Anesthesia. TOPICAL ANESTHETIC: none CONSENT: The patient understands the risks and benefits of the procedure and understands that these risks include, but are not limited to: sedation, allergic reaction, infection, perforation and/or bleeding. Alternative means of evaluation and treatment include, among others: physical exam, x-rays, and/or surgical intervention. The patient elects to proceed with this endoscopic procedure. medical equipment was checked for proper function. Hand hygiene and appropriate measures for infection prevention was taken. After the risks, benefits and alternatives of the procedure were thoroughly explained, Informed consent was verified, confirmed and timeout was successfully executed by the treatment team. The patient was anesthetized with topical anesthesia and the EC-3490Li (Pedi C) endoscope was introduced through the mouth and advanced to the second portion of the duodenum. Retroflexed views revealed no abnormalities The gastroscope was then slowly withdrawn and removed. Duodenum normal-biopsy from second portion and duodenal bulb gastritis antrum-biopsy gastric body-biopsy esophagitis distal esophagus-biopsy. ADVERSE EVENTS: There were no complications. IMPRESSIONS: 1. Duodenum normal-biopsy from second portion and duodenal bulb gastritis antrum-biopsy gastric body-biopsy esophagitis distal esophagus-biopsy 2. Retroflexed views revealed no abnormalities RECOMMENDATIONS: 1. Await biopsy results. Biopsy results will not be ready for 7-10 days. If you don't hear from us in two weeks, call our office for biopsy results. 2. Anti-reflux regimen 3. Continue PPI 4. Advance diet PATIENT CONDITION: stable DISPOSITION: Inpatient REPEAT EXAM: EGD pending biopsy results Merissa Marsh MD eSigned: Merissa Marsh MD 05/22/2017 1:20 PM cc: PATIENT NAME: Sarah Gunn MR#: [id number]
--- NOTE | 2017-05-22 13:20 | GIPROC ---
[facility] [address] [facility]. [facility], [address] EGD PROCEDURE REPORT EXAM DATE: 05/22/2017 PATIENT NAME: Sarah Gunn MR #: [id number] BIRTHDATE: 1995 ATTENDING: Merissa Marsh MD ORDER #: [id number] INTERNATIONAL TRADE TEACHER: Sarah Marroquin and [employer] Vines STATUS: inpatient INDICATIONS: The patient is a 21 yr old female here for an EGD due to diarrhea, sepsis PROCEDURE PERFORMED: EGD w/ biopsy MEDICATIONS: None and Per Anesthesia. TOPICAL ANESTHETIC: none CONSENT: The patient understands the risks and benefits of the procedure and understands that these risks include, but are not limited to: sedation, allergic reaction, infection, perforation and/or bleeding. Alternative means of evaluation and treatment include, among others: physical exam, x-rays, and/or surgical intervention. The patient elects to proceed with this endoscopic procedure. medical equipment was checked for proper function. Hand hygiene and appropriate measures for infection prevention was taken. After the risks, benefits and alternatives of the procedure were thoroughly explained, Informed consent was verified, confirmed and timeout was successfully executed by the treatment team. The patient was anesthetized with topical anesthesia and the EC-[id number] (Pedi C) endoscope was introduced through the mouth and advanced to the second portion of the duodenum. Retroflexed views revealed no abnormalities The gastroscope was then slowly withdrawn and removed. Duodenum normal-biopsy from second portion and duodenal bulb gastritis antrum-biopsy gastric body-biopsy esophagitis distal esophagus-biopsy. ADVERSE EVENTS: There were no complications. IMPRESSIONS: 1. Duodenum normal-biopsy from second portion and duodenal bulb gastritis antrum-biopsy gastric body-biopsy esophagitis distal esophagus-biopsy 2. Retroflexed views revealed no abnormalities RECOMMENDATIONS: 1. Await biopsy results. Biopsy results will not be ready for 7-10 days. If you don't hear from us in two weeks, call our office for biopsy results. 2. Anti-reflux regimen 3. Continue PPI 4. Advance diet PATIENT CONDITION: stable DISPOSITION: Inpatient REPEAT EXAM: EGD pending biopsy results Merissa Marsh MD eSigned: Merissa Marsh MD 05/22/2017 1:20 PM cc: PATIENT NAME: Sarah Gunn MR#: [id number]
--- NOTE | 2017-05-22 13:20 | GIPROC ---
[facility] [address] [facility]. [facility], [address] EGD PROCEDURE REPORT EXAM DATE: 05/22/2017 PATIENT NAME: Sarah Gunn MR #: [id number] BIRTHDATE: 1995 ATTENDING: Merissa Marsh MD ORDER #: [id number] PAST DUE ACCOUNTS CLERK: Sarah Marroquin and Blank Vines STATUS: inpatient INDICATIONS: The patient is a 21 yr old female here for an EGD due to diarrhea, sepsis PROCEDURE PERFORMED: EGD w/ biopsy MEDICATIONS: None and Per Anesthesia. TOPICAL ANESTHETIC: none CONSENT: The patient understands the risks and benefits of the procedure and understands that these risks include, but are not limited to: sedation, allergic reaction, infection, perforation and/or bleeding. Alternative means of evaluation and treatment include, among others: physical exam, x-rays, and/or surgical intervention. The patient elects to proceed with this endoscopic procedure. medical equipment was checked for proper function. Hand hygiene and appropriate measures for infection prevention was taken. After the risks, benefits and alternatives of the procedure were thoroughly explained, Informed consent was verified, confirmed and timeout was successfully executed by the treatment team. The patient was anesthetized with topical anesthesia and the EC-[id number] (Pedi C) endoscope was introduced through the mouth and advanced to the second portion of the duodenum. Retroflexed views revealed no abnormalities The gastroscope was then slowly withdrawn and removed. Duodenum normal-biopsy from second portion and duodenal bulb gastritis antrum-biopsy gastric body-biopsy esophagitis distal esophagus-biopsy. ADVERSE EVENTS: There were no complications. IMPRESSIONS: 1. Duodenum normal-biopsy from second portion and duodenal bulb gastritis antrum-biopsy gastric body-biopsy esophagitis distal esophagus-biopsy 2. Retroflexed views revealed no abnormalities RECOMMENDATIONS: 1. Await biopsy results. Biopsy results will not be ready for 7-10 days. If you don't hear from us in two weeks, call our office for biopsy results. 2. Anti-reflux regimen 3. Continue PPI 4. Advance diet PATIENT CONDITION: stable DISPOSITION: Inpatient REPEAT EXAM: EGD pending biopsy results Merissa Marsh MD eSigned: Merissa Marsh MD 05/22/2017 1:20 PM cc: PATIENT NAME: Sarah Gunn MR#: [id number]
--- NOTE | 2017-05-22 14:02 | HHI.NPPN ---
Subjective History of Present Illness 21 year old with ARF, septic shock, DIC, diarrhea Review of Systems General Constitutional: Fatigue Gastrointestinal Gastrointestinal: Diarrhea Objective Data Data 05/22/17 05/23/17 19:00 07:00 Intake Total 230 ml Output Total 1850 ml Balance -1620 ml Intake IV Total 230 ml Output Urine Total 1250 ml Stool Total 600 ml Vital Signs Date Time Temp Pulse Resp B/P (MAP) Pulse Ox O2 Delivery O2 Flow Rate FiO2 05/22/17 12:25 99.0 96 20 100/56 (71) 99 05/22/17 07:10 93 Nasal Cannula 2.00 05/22/17 07:00 Nasal Cannula 3.00 97 05/22/17 06:00 108 95/53 (67) 05/22/17 06:00 108 05/22/17 04:00 99.1 101 30 95/72 (80) 96 05/22/17 04:00 101 05/22/17 02:00 104 05/22/17 02:00 94 Nasal Cannula 4.00 05/22/17 00:00 98.5 103 24 101/54 (70) 92 05/22/17 00:00 104 05/21/17 22:42 104 95/51 05/21/17 22:00 104 05/21/17 20:48 98 Nasal Cannula 2.00 05/21/17 20:00 104 05/21/17 20:00 99.0 107 24 99/51 (67) 94 Arterial Line 05/21/17 19:00 97 Nasal Cannula 2.00 05/21/17 18:00 99 103/56 (72) 05/21/17 18:00 99 05/21/17 16:00 98.8 114 27 112/59 (76) 97 89/64 (72) 05/21/17 16:00 114 05/21/17 14:21 114 115/55 -: 05/22/17 0447 05/22/17446 Physical Exam General Appearance: Well Developed, Well Nourished Neck Neck Exam: Neck Supple Pulmonary Resp Exam: Clear Bilaterally, Breath Sounds Equal Cardiology CV Exam: Tachycardia Gastrointestinal/Abdomen GI Exam: Soft, Non-Tender, Bowel Sounds Present Extremeties Extremities Exam: No Edema Assessment/Plan Problem List: (1) Acute renal failure ICD Codes: N17.9 - Acute kidney failure, unspecified Status: Acute Plan: She has shocked the kidneys and was hypotensive Hypochloremic alkalosis corrected, Acidosis corrected nephrology to see her PRN bases ID following discuss with mother continue supportive care follow with GI (2) Elevated liver enzymes ICD Codes: R74.8 - Abnormal levels of other serum enzymes Status: Acute Plan: due to shock liver (3) Nausea vomiting and diarrhea ICD Codes: R11.2 - Nausea with vomiting, unspecified; R19.7 - Diarrhea, unspecified Status: Acute Plan: Severe sepsis etiology unclear (4) Acid-base disorder, mixed ICD Codes: E87.4 - Mixed disorder of acid-base balance Plan: resolved acidosis Alkalosis resolved Problem Qualifiers (1) Acute renal failure: Qualified Codes: N17.0 - Acute kidney failure with tubular necrosis Khadijah Shirley MD May 22, 2017 14:02
[2017-05-22 14:34] LABS: MYCOPLASMA PNEUMONIAE IGG Positive (Negative); MYCOPLASMA PNEUMONIAE IGM Negative (Negative)
[2017-05-22] MEDS ORDERED: CEFEPIME INJ 2,000 MG in SODIUM CHLORIDE 0.9% INJ 100 ML IV SCH ×8 (15:00→16:00)
[2017-05-22] MEDS: MESALAMINE HD 800 MG DELAYED RELEASE TAB PO SCH ×4 (15:05→21:32)
--- NOTE | 2017-05-22 15:07 | PD.ONC.PN ---
Subjective Subjective Remarks Afebrile overnight No bleeding Objective Data Date Time Temp Pulse Resp B/P (MAP) Pulse Ox O2 Delivery O2 Flow Rate FiO2 05/22/17 14:00 96 05/22/17 12:25 99.0 96 20 100/56 (71) 99 05/22/17 12:00 98.8 98 34 103/57 (72) 98 05/22/17 12:00 99 05/22/17 10:00 100 05/22/17 08:00 98.8 104 32 102/51 (68) 94 05/22/17 08:00 100 05/22/17 07:10 93 Nasal Cannula 2.00 05/22/17 07:00 Nasal Cannula 3.00 97 05/22/17 06:00 108 95/53 (67) 05/22/17 06:00 108 05/22/17 04:00 99.1 101 30 95/72 (80) 96 05/22/17 04:00 101 05/22/17 02:00 104 05/22/17 02:00 94 Nasal Cannula 4.00 05/22/17 00:00 98.5 103 24 101/54 (70) 92 05/22/17 00:00 104 05/21/17 22:42 104 95/51 05/21/17 22:00 104 05/21/17 20:48 98 Nasal Cannula 2.00 05/21/17 20:00 104 05/21/17 20:00 99.0 107 24 99/51 (67) 94 Arterial Line 05/21/17 19:00 97 Nasal Cannula 2.00 05/21/17 18:00 99 103/56 (72) 05/21/17 18:00 99 05/21/17 16:00 98.8 114 27 112/59 (76) 97 89/64 (72) 05/21/17 16:00 114 05/22/17 05/22/17 05/22/17 07:00 15:00 23:00 Intake Total 2940 ml 230 ml Output Total 1500 ml 1850 ml Balance 1440 ml -1620 ml Result Diagram: 05/22/1744605/22/17446 Laboratory Results Laboratory Tests Test 05/21/17 19:45 05/22/17 04:47 Blood Gas Puncture Site ART LINE Blood Gas Patient Temperature 98.6 Blood Gas HCO3 20 mmol/L Blood Gas Base Excess -3.9 mmol/L Blood Gas Oxygen Saturation 97 % Arterial Blood pH 7.44 Arterial Blood Partial Pressure CO2 29 mmHg Arterial Blood Partial Pressure O2 107 mmHg Arterial Blood Oxygen Content 10.2 Vol % Arterial Blood Carboxyhemoglobin 1.2 % Arterial Blood Methemoglobin 0.8 % Blood Gas Hemoglobin 7.3 G/DL Oxygen Delivery Device NASAL CANNULA Blood Gas Liter Flow 3 L/M White Blood Count 10.1 TH/MM3 Red Blood Count 3.04 MIL/MM3 Hemoglobin 9.3 GM/DL Hematocrit 27.2 % Mean Corpuscular Volume 89.5 FL Mean Corpuscular Hemoglobin 30.8 PG Mean Corpuscular Hemoglobin Concent 34.4 % Red Cell Distribution Width 13.3 % Platelet Count 58 TH/MM3 Mean Platelet Volume 10.0 FL Prothrombin Time 12.3 SEC Prothromb Time International Ratio 1.1 RATIO Activated Partial Thromboplast Time 37.7 SEC Blood Urea Nitrogen 24 MG/DL Creatinine 1.64 MG/DL Random Glucose 113 MG/DL Total Protein 4.4 GM/DL Albumin 1.9 GM/DL Calcium Level 7.4 MG/DL Alkaline Phosphatase 64 U/L Aspartate Amino Transf (AST/SGOT) 61 U/L Alanine Aminotransferase (ALT/SGPT) 44 U/L Lactate Dehydrogenase 217 U/L Total Bilirubin 3.0 MG/DL Direct Bilirubin 2.3 MG/DL Sodium Level 139 MEQ/L Potassium Level 3.5 MEQ/L Chloride Level 104 MEQ/L Carbon Dioxide Level 26.4 MEQ/L Anion Gap 9 MEQ/L Estimat Glomerular Filtration Rate 49 ML/MIN Protein Corrected Calcium 8.9 MG/DL Indirect Bilirubin 0.7 MG/DL Culture Results Microbiology Date/Time Source Procedure Growth Status 05/20/17 16:50 Blood Peripheral Aerobic Blood Culture - Preliminary NO GROWTH IN 2 DAYS Resulted 05/20/17 16:50 Blood Peripheral Anaerobic Blood Culture - Preliminary NO GROWTH IN 2 DAYS Resulted 05/20/17 16:50 Blood Peripheral Aerobic Blood Culture - Preliminary NO GROWTH IN 2 DAYS Resulted 05/20/17 16:50 Blood Peripheral Anaerobic Blood Culture - Preliminary NO GROWTH IN 2 DAYS Resulted 05/20/17 09:35 Blood Peripheral Aerobic Blood Culture - Preliminary NO GROWTH IN 2 DAYS Resulted 05/20/17 09:35 Blood Peripheral Anaerobic Blood Culture - Preliminary NO GROWTH IN 2 DAYS Resulted 05/20/17 09:33 Blood Peripheral Aerobic Blood Culture - Preliminary NO GROWTH IN 2 DAYS Resulted 05/20/17 09:33 Blood Peripheral Anaerobic Blood Culture - Preliminary NO GROWTH IN 2 DAYS Resulted 05/20/17 13:30 Stool Stool Cyclospora Exam - Final NO CYCLOSPORA SEEN Resulted 05/20/17 13:30 Stool Stool Cryptosporidium Exam Pending Resulted 05/20/17 13:30 Stool Stool Stool Pus (KEYANA) - Final NO WBC'S SEEN Resulted 05/20/17 13:30 Stool Stool Giardia Antigen (KEYANA) Pending Resulted 05/20/17 13:30 Stool Stool Rotavirus Antigen - Final NEGATIVE - ROTAVIRUS ANTIGEN IS ABSEN... Complete 05/20/17 12:20 Stool Stool - Final Complete 05/20/17 09:40 Throat Group A Streptococcus Screen - Final NO GP A BETA STREP ISOLATED. Complete 05/20/17 09:40 Nasal Aspirate Influenza Types A,B Antigen (KEYANA) - Final NEGATIVE FOR FLU A AND B ANTIGEN.... Complete 05/20/17 09:40 Throat Group A Streptococcus Screen (KEYANA) - Final Complete 05/20/17 14:00 Urine Random Urine Urine Culture - Final NO GROWTH IN 48 HOURS. Complete Imaging Studies Last 24 hours Impressions Chest X-Ray 05/22/17 0000 Signed Impressions: Service Date/Time: Saturday, May 22, 2017 07:05 - CONCLUSION: 1. Rapid development of extensive airspace disease which may represent pulmonary edema considering the patient's history. 2. Cardiomegaly Paul Malone MD Administered Medications Medications (Trade) Dose Ordered Sig/Juju Route PRN Reason Start Time Stop Time Status Last Admin Dose Admin Ondansetron HCl (Zofran Inj) 4 mg Q6H PRN IV PUSH NAUSEA OR VOMITING 05/20/17 12:00 05/21/17 05:56 Heparin Sodium (Porcine) (Heparin Inj) 5,000 units Q12H SQ 05/20/17 13:00 05/22/17 00:56 Miscellaneous Information 1 Q361D XX 05/20/17 12:00 05/20/17 20:24 Norepinephrine Bitartrate 250 ml @ 7.5 mls/hr TITRATE PRN IV Blood pressure management 05/20/17 14:45 05/21/17 00:13 Metronidazole 100 ml @ 100 mls/hr Q8H IV 05/20/17 16:00 05/22/17 09:38 Dobutamine HCl/ Dextrose 250 ml @ 10.65 mls/ hr [id number] PRN IV Rate change per MD 05/20/17 16:32 05/21/17 14:21 Sodium Chloride 500 ml @ 20 mls/hr Q24H IV 05/20/17 19:15 05/21/17 17:18 Vasopressin 40 units/Dextrose 100 ml @ 3 mls/hr Q24H IV 05/21/17 21:30 05/21/17 22:42 Lactated Ringer's 1,000 ml @ 75 mls/hr [id number] IV 05/22/17 07:00 05/22/17 06:51 Objective Remarks GENERAL: Tired appearing younger female resting in bed in no acute distress SKIN: Warm and dry. HEAD: Normocephalic. EYES: No injection or drainage. NECK: Supple, trachea midline. CARDIOVASCULAR: Regular rhythm RESPIRATORY: Clear anteriorly. Breathing unlabored. GASTROINTESTINAL: Abdomen soft, non-tender, nondistended. EXTREMITIES: No cyanosis NEUROLOGICAL: Moving all extremities. No obvious focal deficit. Assessment/Plan Problem List: (1) Thrombocytopenia ICD Codes: D69.6 - Thrombocytopenia, unspecified Plan: 05/22: Platelets continue to drop. No bleeding. Monitor CBC, Fibrinogen. --due to sepsis and possible DIC. --No evidence of microangiopathic hemolytic anemia. --peripheral smear-->No evidence of schistocytes noted. --bilirubin is elevated due to shock liver. --will give cryo for fibrinogen less than 100 --expect her platelet count to go down before it will improve back to normal due to her current septic shock syndrome. (2) Nausea vomiting and diarrhea ICD Codes: R11.2 - Nausea with vomiting, unspecified; R19.7 - Diarrhea, unspecified Status: Acute Plan: --unknown etiology --?GI infection --stool cultures negative so far (3) Sepsis ICD Codes: A41.9 - Sepsis, unspecified organism Plan: --on Flagyl and Cefepime, --Blood cultures, 05/20, no growth x 1 day Assessment 21y/o female admitted with septic shock. Hematology consulted for thrombocytopenia. Attending Statement Patient is feeling better Diarrhea is improving Status post EGD and colonoscopy. Findings noted platelets are dropping but no Bleeding. ARF is improving Shocked liver is also improving Patient is on antibiotic for septic shock Monitor CBC and coags The exam, history, and the medical decision-making described in the above note were completed with the assistance of the mid-level provider. I reviewed and agree with the findings presented. I attest that I had a [id number] encounter with the patient on the same day, and personally performed and documented my assessment and findings in the medical record. Lakisha Morataya May 22, 2017 15:07 Raghav Vieyra MD May 22, 2017 23:47
[2017-05-22] MEDS: SODIUM CHLORID 0.9% 500 ML INJ 500 ML IV SCH ×2 (16:55)
[2017-05-22 19:31] LABS: CALCIUM 8.8 MG/DL (8.5-10.1)
[2017-05-22] MEDS ORDERED: DAPTOmycin INJ 700 MG in SODIUM CHLORIDE 0.9% INJ 100 ML IV SCH ×4 (20:00)
[2017-05-22] MEDS: VASOPRESSIN INJ 40 UNITS in DEXTROSE 5% IN WATER 100ML INJ 98 ML IV SCH ×4 (21:30)
[2017-05-23] VITALS (15 sets, daily range): BP systolic 94–117; BP diastolic 54–79; PULSE 65–98; RESP 20–36; TEMP 97.7–99.1; O2SAT 95–99
[2017-05-23] MEDS: HEPARIN SODIUM - SQ 10,000 UNITS/ML VIAL SQ SCH ×4 (00:19→13:00)
[2017-05-23] MEDS: metroNIDAZOLE 500 MG INJ 100 ML IV SCH ×8 (00:19→23:52)
[2017-05-23] MEDS: CHLORHEXIDINE GLUCONATE 2 % 1 PACK (2 CLOTHS) TOP SCH ×2 (04:00)
[2017-05-23 05:27] LABS: HEMOGLOBIN 9.1 GM/DL (11.6-15.3); MEAN CELL VOLUME 88.6 FL (80.0-100.0); MEAN CORPUSCULAR HEMOGLOBIN 29.7 PG (27.0-34.0); MEAN CORPUSCULAR HGB CONC 33.5 % (32.0-36.0); MEAN PLATELET VOLUME 9.6 FL (7.0-11.0); PLATELET COUNT 55 TH/MM3 (150-450); RED BLOOD COUNT 3.05 MIL/MM3 (4.00-5.30); RED CELL DISTRIBUTION WIDTH 13.6 % (11.6-17.2); WHITE BLOOD COUNT 12.6 TH/MM3 (4.0-11.0)
[2017-05-23 05:51] LABS: INTERNATIONAL NORMALIZED RATIO 1.1 RATIO; PROTHROMBIN TIME - PATIENT 11.8 SEC (9.8-11.6)
[2017-05-23 05:52] LABS: ALBUMIN 2.1 GM/DL (3.4-5.0); BICARBONATE 32.1 MEQ/L (21.0-32.0); CALCIUM 8.1 MG/DL (8.5-10.1); CREATININE 1.15 MG/DL (0.50-1.00); DIRECT BILIRUBIN ADULT 3.2 MG/DL (0.0-0.2)
[2017-05-23 05:55] LABS: INDIRECT BILIRUBIN 0.8 MG/DL (0.0-0.8); TOTAL PROTEIN 5.1 GM/DL (6.4-8.2)
[2017-05-23] MEDS ORDERED: FUROSEMIDE 20 MG/2 ML VIAL IV PUSH ONE ×2 (06:00)
--- NOTE | 2017-05-23 06:16 | HHI.CCPN ---
Subjective Remarks/Hospital Course Hospital Course: This is a 21yF with no remarkable past medical history who presents to the ER with a 3 day history of nausea, vomiting, and liquid diarrhea. 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 the emesis she describes as clear to somewhat brown, without blood, not coffee grounds, without a bilious appearance. she describes her diarrhea as completely watery, again without blood or dark black color. It is not associated with food. She endorses some generalized abdominal pain, but cannot point to any one area. She also endorses fever and chills over this time period. Denies chest pain, shortness of breath. She also endorses some "tingling" of her hands and feet, although this is difficult to describe, she does describe them as "weak" and "fatigued." She also states she has not urinated x 48h. In the emergency department, she was hypotensive and tachycardic which both responded to ivf. Her laboratory data is significant for leukocytosis to 14k, thrombocytopenia 140k, INR 2.0, elevated t bili at 5.5, Cr of > 6, lactate of almost 7, significant anion-gap metabolic acidosis. Critical care medicine is consulted to evaluate and manage her septic shock and multi-organ system dysfunction. Subjective: 05/21: clinically beginning to improve. UOP increased to 60 cc/hr overnight. Cr downtrended to 3. Acidosis improving slowly. nausea persists and she still endorses generalized crampy abdominal pain, though she cannot put a finger on any one area. with regard to her strength, she still has generalized subjective weakness. vasopressors are at lower doses, but persists on inotropes and multiple vasopressors. 2d formal echocardiogram completed overnight (on inotropic therapy) and demonstrates LVEF 60%, hyperdynamic, no valvular lesions. Infectious work-up and multiple cultures still outstanding. 05/22: renal function continues to improve. still large volume watery diarrhea. less nausea today. slightly short of breath. remains on low-dose vasopressin to maintain map > 65mmHg. platelets continue to drop, but fibrinogen stable. 05/23: renal function continues to improve. GI EGD/Colonoscopy yesterday with normal appearing tissue. diarrhea some better. still persists on vasopressors, but low dose. will check random cortisol. subjectively feels better. diuresed yesterday for rapid development of pulmonary edema with rising o2 requirement, now o2 downtrending. Objective Vital Signs Date Time Temp Pulse Resp B/P (MAP) Pulse Ox O2 Delivery O2 Flow Rate FiO2 05/23/17 00:00 99.1 98 21 100/55 (70) 95 05/22/17 20:17 Nasal Cannula 2.00 05/22/17 07:00 97 Result Diagram: 05/23/17 0510 05/23/17 0510 Other Results Microbiology Date/Time Source Procedure Growth Status 05/20/17 13:30 Stool Stool Rotavirus Antigen - Final NEGATIVE - ROTAVIRUS ANTIGEN IS ABSEN... Complete 05/20/17 12:20 Stool Stool - Final Complete 05/20/17 09:40 Throat Group A Streptococcus Screen - Final NO GP A BETA STREP ISOLATED. Complete 05/20/17 09:40 Nasal Aspirate Influenza Types A,B Antigen (KEYANA) - Final NEGATIVE FOR FLU A AND B ANTIGEN.... Complete 05/20/17 09:40 Throat Group A Streptococcus Screen (KEYANA) - Final Complete 05/20/17 14:00 Urine Random Urine Urine Culture - Final NO GROWTH IN 48 HOURS. Complete Imaging Last Impressions Neck CT 05/20/17 1633 Signed Impressions: Service Date/Time: Saturday, May 20, 2017 17:26 - CONCLUSION: 1. Limited evaluation secondary to lack of intravenous contrast. No masses are identified 2. Nonspecific slightly enlarged nodes in group 2 on the right Isma Randhawa MD Chest CT 05/20/17 1633 Signed Impressions: Service Date/Time: Saturday, May 20, 2017 17:29 - CONCLUSION: Patchy airspace disease both lung base is without pleural effusion. Zeus Pulido MD FACR Abdomen/Pelvis CT 05/20/17 1633 Signed Impressions: Service Date/Time: Saturday, May 20, 2017 17:29 - CONCLUSION: Limited exam without oral intravenous contrast. There is no free air. Do not see evidence for an abscess.. Zeus Pulido MD FACR Chest X-Ray 05/20/17 0930 Signed Impressions: Service Date/Time: Saturday, May 20, 2017 09:45 - CONCLUSION: No acute disease. Zeus Pulido MD FACR Abdomen Ultrasound 05/20/17 0000 Signed Impressions: Service Date/Time: Saturday, May 20, 2017 12:08 - CONCLUSION: Scattered small hyperechoic nonspecific there is left lobe of the liver. There are no gallstones. CT scan with contrast may be of benefit. Zeus Pulido MD FACR Objective Remarks gen: young female, lying in bed, no distress heent: nc. at. perrl. eomi. mucous membranes moist. neck: trachea midline. no jvd. chest: unlabored. 2L o2 by nc. cv: normal rate, regular rhythm. sinus by tele. CVP 9 abd: soft, mild generalized tenderness to palpation diffusely, no guarding, rebound. nondistended. extr: warm, improved peripheral perfusion. good cap refill. generalized edema, 1 +. neuro: awake, RASS 0. sensation grossly intact. THIAGO: RUE 4+/5 RLE 4+/5 LUE 4+/5 LLE 4+/5. no myoclonus. A/P Assessment and Plan Assessment: 21yF otherwise healthy who presented in near-extremis with multi- organ dysfunction, septic shock, DIC, severe anuric acute kidney injury, acute liver dysfunction. still on low-dose vasopressors: will check random cortisol. would prefer not to expose her to steroids if avoidable. still clinically appears volume overloaded. will continue forced diuresis. weakness again stable : needs ongoing PT. cultures remain negative to date. No active bleeding despite platelets. Highly complex with multiple medical problems and resolving organ dysfunction. Plan by systems: Neurologic: Extremity Weakness - stable. Neck pain - tylenol as needed for pain - neuro consult - frequent neuro checks - unlikely to be Guillain [place]. Respiratory: Atelectasis Pulmonary Edema - wean o2 by VT for spo2 > 92% - aggressive pulmonary toilet. - PT/OT. - continue forced diuresis. Cardiovascular: Septic Shock - persistent. Myocardial Stunning secondary to septic shock - resolved. - trend cvp - d/c mivf. - d/c vasopressin. use norepinephrine as needed to achieve map goal > 65 mmHg. - 2d echo 05/21 on dobutamine at 2.5 mcg/kg/min: LVEF 60%, no RWMA, no valvular lesions Renal: Severe oligoanuric Acute Kidney Injury - improving. Acute intravascular volume overload - nephrology following. - daily bmp -- Strict I/Os - continue Mendoza catheter today - renal ultrasound 05/20: no evidence of hydronephrosis. - lasix 20mg iv x 1. FEN/GI: Suspected infectious diarrhea Acute liver dysfunction - improving. Hyponatremia - resolved. Hypokalemia Hypocalcemia Anion-gap Metabolic Acidosis - improved. Lactic Acidosis - improved. Contraction metabolic alkalosis Acute intravascular volume overload. - trend LFTs - GI consult to assist with hepatic dysfunction and diarrhea - replace K, Ca, Mg. persistently low. - d/c mivf. - daily BMP, LFT - serial abg - diamox 500mg iv x 1. - lasix 20mg iv x 1. Heme/ID: Leukocytosis - improving. Probable Infectious Diarrhea Septic Shock - persistent. Thrombocytopenia - persistent, worsening Acute Coagulopathy - resolved. Disseminated Intravascular Coagulation - hematology consult - 4T score low probability for HIT - thrombocytopenia likely combination early DIC with consumption/severe sepsis - elevated INR combination early DIC and hepatic dysfunction, now improved. - trend daily CBC and coags. - Cefepime, flagyl - daptomycin stopped 05/22 per ID. - vazquez cultures pending. - f/u stool studies - peripheral smear Endocrine: Hyperglycemia of critical illness -- SSI, med scale, q6h Prophylaxis: GI Prophylaxis pepcid iv DVT Prophylaxis -- SCDs -- SQH. if platelet count drops below 50k or coagulopathy worsens, will hold pharmacologic DVT prophylaxis. Lines: - 05/20 left [facility] TLC - Mendoza Dispo: remain in ICU. although organs slightly improved, highly complex, and still on vasopressors. still needs ICU level care and high risk for decompensation. Ricardo Knight MD May 23, 2017 06:16
[2017-05-23] MEDS: MESALAMINE HD 800 MG DELAYED RELEASE TAB PO SCH ×6 (07:39→22:19)
--- NOTE | 2017-05-23 10:53 | PD.ONC.PN ---
Subjective Subjective Remarks Afebrile overnight. Patient feeling much better today. Still somewhat tachypneic. waiting on MRI so she is NPO. still with oral secretions which she uses Yankauer to suction. Objective Data Date Time Temp Pulse Resp B/P (MAP) Pulse Ox O2 Delivery O2 Flow Rate FiO2 05/23/17 10:14 75 05/23/17 08:47 95 Nasal Cannula 2.00 05/23/17 08:00 98.0 65 20 100/60 (73) 98 05/23/17 08:00 96 117/60 (79) 05/23/17 08:00 78 05/23/17 08:00 77 05/23/17 07:00 100 Nasal Cannula 3.00 05/23/17 06:00 88 05/23/17 04:00 82 05/23/17 04:00 98.0 82 20 101/56 (71) 98 05/23/17 02:00 84 05/23/17 00:00 99.1 98 21 100/55 (70) 95 05/23/17 00:00 98 05/22/17 22:00 106 05/22/17 20:17 100 Nasal Cannula 2.00 05/22/17 20:00 98.4 92 24 102/55 (71) 100 05/22/17 20:00 100 Nasal Cannula 3.00 05/22/17 20:00 92 05/22/17 18:00 96 05/22/17 18:00 96 117/60 (79) 05/22/17 16:00 99 05/22/17 16:00 99.3 99 32 117/60 (79) 98 05/22/17 14:00 96 05/22/17 12:25 99.0 96 20 100/56 (71) 99 05/22/17 12:00 98.8 98 34 103/57 (72) 98 05/22/17 12:00 99 05/23/17 05/23/17 05/23/17 07:00 15:00 23:00 Intake Total 1184 ml Output Total 3775 ml Balance -2591 ml Result Diagram: 05/23/17 0510 05/23/17 0510 Laboratory Results Laboratory Tests Test 05/22/17 18:00 05/23/17 05:10 Potassium Level 3.6 MEQ/L 3.2 MEQ/L Calcium Level 8.8 MG/DL 8.1 MG/DL White Blood Count 12.6 TH/MM3 Red Blood Count 3.05 MIL/MM3 Hemoglobin 9.1 GM/DL Hematocrit 27.0 % Mean Corpuscular Volume 88.6 FL Mean Corpuscular Hemoglobin 29.7 PG Mean Corpuscular Hemoglobin Concent 33.5 % Red Cell Distribution Width 13.6 % Platelet Count 55 TH/MM3 Mean Platelet Volume 9.6 FL Prothrombin Time 11.8 SEC Prothromb Time International Ratio 1.1 RATIO Activated Partial Thromboplast Time 33.2 SEC Fibrinogen 420 mg/dL Blood Urea Nitrogen 24 MG/DL Creatinine 1.15 MG/DL Random Glucose 104 MG/DL Total Protein 5.1 GM/DL Albumin 2.1 GM/DL Alkaline Phosphatase 76 U/L Aspartate Amino Transf (AST/SGOT) 73 U/L Alanine Aminotransferase (ALT/SGPT) 49 U/L Lactate Dehydrogenase 247 U/L Total Bilirubin 4.0 MG/DL Direct Bilirubin 3.2 MG/DL Sodium Level 139 MEQ/L Chloride Level 100 MEQ/L Carbon Dioxide Level 32.1 MEQ/L Anion Gap 7 MEQ/L Estimat Glomerular Filtration Rate 74 ML/MIN Indirect Bilirubin 0.8 MG/DL Culture Results Microbiology Date/Time Source Procedure Growth Status 05/20/17 16:50 Blood Peripheral Aerobic Blood Culture - Preliminary NO GROWTH IN 2 DAYS Resulted 05/20/17 16:50 Blood Peripheral Anaerobic Blood Culture - Preliminary NO GROWTH IN 2 DAYS Resulted 05/20/17 16:50 Blood Peripheral Aerobic Blood Culture - Preliminary NO GROWTH IN 2 DAYS Resulted 05/20/17 16:50 Blood Peripheral Anaerobic Blood Culture - Preliminary NO GROWTH IN 2 DAYS Resulted 05/20/17 13:30 Stool Stool Cyclospora Exam - Final NO CYCLOSPORA SEEN Resulted 05/20/17 13:30 Stool Stool Cryptosporidium Exam Pending Resulted 05/20/17 13:30 Stool Stool Stool Pus (KEYANA) - Final NO WBC'S SEEN Resulted 05/20/17 13:30 Stool Stool Giardia Antigen (KEYANA) Pending Resulted 05/20/17 13:30 Stool Stool Rotavirus Antigen - Final NEGATIVE - ROTAVIRUS ANTIGEN IS ABSEN... Complete 05/20/17 12:20 Stool Stool - Final Complete 05/20/17 14:00 Urine Random Urine Urine Culture - Final NO GROWTH IN 48 HOURS. Complete Administered Medications Medications (Trade) Dose Ordered Sig/Juju Route PRN Reason Start Time Stop Time Status Last Admin Dose Admin Ondansetron HCl (Zofran Inj) 4 mg Q6H PRN IV PUSH NAUSEA OR VOMITING 05/20/17 12:00 05/21/17 05:56 Heparin Sodium (Porcine) (Heparin Inj) 5,000 units Q12H SQ 05/20/17 13:00 05/23/17 00:19 Miscellaneous Information 1 Q361D XX 05/20/17 12:00 05/20/17 20:24 Norepinephrine Bitartrate 250 ml @ 7.5 mls/hr TITRATE PRN IV Blood pressure management 05/20/17 14:45 05/21/17 00:13 Metronidazole 100 ml @ 100 mls/hr Q8H IV 05/20/17 16:00 05/23/17 09:40 Mesalamine (Asacol Hd Dr) 1,600 mg Q8HR PO 05/22/17 14:00 05/23/17 07:39 Cefepime HCl 2000 mg/Sodium Chloride 100 ml @ 200 mls/hr Q24H IV 05/22/17 16:00 05/22/17 16:54 Objective Remarks GENERAL: Young woman, sitting up in bed on 3L O2 via NC SKIN: Warm and dry. HEAD: Normocephalic. EYES: No injection or drainage. NECK: Supple, trachea midline. CARDIOVASCULAR: Regular rate and rhythm RESPIRATORY: anterior nassar with occasional rhonchi. GASTROINTESTINAL: Abdomen soft, non-tender, nondistended. EXTREMITIES: No cyanosis NEUROLOGICAL: awake and alert, normal speech. Assessment/Plan Problem List: (1) Thrombocytopenia ICD Codes: D69.6 - Thrombocytopenia, unspecified Plan: 05/23: No bleeding. Monitor CBC, coags. will transfuse if bleeding. --due to sepsis and possible DIC. --No evidence of microangiopathic hemolytic anemia. --peripheral smear-->No evidence of schistocytes noted. --bilirubin is elevated due to shock liver. --will give cryo for fibrinogen less than 100 --expect her platelet count to go down before it will improve back to normal due to her current septic shock syndrome. (2) Nausea vomiting and diarrhea ICD Codes: R11.2 - Nausea with vomiting, unspecified; R19.7 - Diarrhea, unspecified Status: Acute Plan: --unknown etiology --?GI infection --stool cultures negative so far (3) Sepsis ICD Codes: A41.9 - Sepsis, unspecified organism Plan: --on Flagyl and Cefepime, --Blood cultures, 05/20, no growth Assessment 21y/o female admitted with septic shock. Hematology consulted for thrombocytopenia. Attending Statement The exam, history, and the medical decision-making described in the above note were completed with the assistance of the mid-level provider. I reviewed and agree with the findings presented. I attest that I had a [id number] encounter with the patient on the same day, and personally performed and documented my assessment and findings in the medical record. Patient is feeling better ARF has now almost resolved Liver enzymes are still elevated MRCP findings noted Sepsis is improving Monitor CBC Jenny Alberto May 23, 2017 10:53 Raghav Vieyra MD May 23, 2017 23:11
--- NOTE | 2017-05-23 12:58 | HHI.IDPN ---
Subjective Subjective Remarks is a 21 y/o AAF with no significant PMHx who presents with acute onset of diarrhea, N/V, extreme weakness with no urine output for ~ 3 days prior to admission. Patient reports she was playing her usual volley ball game and came home and had a a nap. When she woke up she felt nauseous, vomited couple of times and had diarrhea with no blood since then. She continued to have these symptoms since that day and progressively felt weak, achy with headaches. She denies any visual problems. She reports discomfort in her throat and secretions accumulating in mouth. She denies any soreness although on exam she has erythema. She denies any difficulty swallowing. She reports an acute steady decline in urine output and has had no urine output since 2 days. She reports myalgias and extreme weakness and could not participate in a neuro exam. She reports neck pain but no neck stiffness and is able to move her neck side ways. She denies any rash. Foods consumed last week: Salads, chilli, [employer] burger and apple pie. She denies eating any cold cuts, hot dogs or fresh cheeses. In fact she does not like cheese. She lives with her room mates from college and 1 other person has flu like symptoms but no one else has GI symptoms. She has never been tested for hepatitis and HIV. She is currently in her periods and reports using tampons earlier on but she removed them in their entirety. No vaginal foul smelling discharge other than usual menstrual blood. She reports being sexually active but protected sex with no oral activity. On presentation to the ED she reported a fever 101 F at home, subjective chills. She had a SBP 85, lactic acid elevated, WBC elevated at 14.5 with Dohle' s bodies, no obvious schistocytes, LDH and Hapto are normal but Ddimer is elevated and coag abnormal with elevated INR. Pathologist review of smear is pending at present time. I personally called and notified need for stat PS review by pathologist. BP continued to be low so patient was transferred to [facility] under director client services service. Central line and A line are being placed. ID consulted for evaluation and Mment of sepsis possible HUS. Overnight events reviewed. Still on low dose pressors. Alert, oriented. Denies any tingling and numbness. UO improved. Diarrhea volume decreased from 1600 cc to 300 cc after Asacol added. No Nausea/vomiting. Antibiotics Cefepime IV Flagyl IV Lines Line sites with no e.o infection Past Medical History reviewed and none Allergies: Coded Allergies: No Known Allergies (Unverified Allergy, Unknown, 05/20/17) Objective . Vital Signs Date Time Temp Pulse Resp B/P (MAP) Pulse Ox O2 Delivery O2 Flow Rate FiO2 05/23/17 12:00 83 05/23/17 12:00 97.7 82 29 95/57 (70) 97 05/23/17 10:14 75 05/23/17 08:47 95 Nasal Cannula 2.00 05/23/17 08:00 98.0 65 20 100/60 (73) 98 05/23/17 08:00 96 117/60 (79) 05/23/17 08:00 78 05/23/17 08:00 77 05/23/17 07:00 100 Nasal Cannula 3.00 05/23/17 06:00 88 05/23/17 04:00 82 05/23/17 04:00 98.0 82 20 101/56 (71) 98 05/23/17 02:00 84 05/23/17 00:00 99.1 98 21 100/55 (70) 95 05/23/17 00:00 98 05/22/17 22:00 106 05/22/17 20:17 100 Nasal Cannula 2.00 05/22/17 20:00 98.4 92 24 102/55 (71) 100 05/22/17 20:00 100 Nasal Cannula 3.00 05/22/17 20:00 92 05/22/17 18:00 96 05/22/17 18:00 96 117/60 (79) 05/22/17 16:00 99 05/22/17 16:00 99.3 99 32 117/60 (79) 98 05/22/17 14:00 96 . Laboratory Tests Test 05/22/17 04:47 05/23/17 05:10 White Blood Count 10.1 TH/MM3 12.6 TH/MM3 Red Blood Count 3.04 MIL/MM3 3.05 MIL/MM3 Hemoglobin 9.3 GM/DL 9.1 GM/DL Hematocrit 27.2 % 27.0 % Mean Corpuscular Volume 89.5 FL 88.6 FL Mean Corpuscular Hemoglobin 30.8 PG 29.7 PG Mean Corpuscular Hemoglobin Concent 34.4 % 33.5 % Red Cell Distribution Width 13.3 % 13.6 % Platelet Count 58 TH/MM3 55 TH/MM3 Mean Platelet Volume 10.0 FL 9.6 FL Laboratory Tests Test 05/22/17 04:47 05/22/17 18:00 05/23/17 05:10 Blood Urea Nitrogen 24 MG/DL 24 MG/DL Creatinine 1.64 MG/DL 1.15 MG/DL Random Glucose 113 MG/DL 104 MG/DL Total Protein 4.4 GM/DL 5.1 GM/DL Albumin 1.9 GM/DL 2.1 GM/DL Calcium Level 7.4 MG/DL 8.8 MG/DL 8.1 MG/DL Alkaline Phosphatase 64 U/L 76 U/L Aspartate Amino Transf (AST/SGOT) 61 U/L 73 U/L Alanine Aminotransferase (ALT/SGPT) 44 U/L 49 U/L Lactate Dehydrogenase 217 U/L 247 U/L Total Bilirubin 3.0 MG/DL 4.0 MG/DL Direct Bilirubin 2.3 MG/DL 3.2 MG/DL Sodium Level 139 MEQ/L 139 MEQ/L Potassium Level 3.5 MEQ/L 3.6 MEQ/L 3.2 MEQ/L Chloride Level 104 MEQ/L 100 MEQ/L Carbon Dioxide Level 26.4 MEQ/L 32.1 MEQ/L Anion Gap 9 MEQ/L 7 MEQ/L Estimat Glomerular Filtration Rate 49 ML/MIN 74 ML/MIN Protein Corrected Calcium 8.9 MG/DL Indirect Bilirubin 0.7 MG/DL 0.8 MG/DL Microbiology Date/Time Source Procedure Growth Status 05/20/17 16:50 Blood Peripheral Aerobic Blood Culture - Preliminary NO GROWTH IN 3 DAYS Resulted 05/20/17 16:50 Blood Peripheral Anaerobic Blood Culture - Preliminary NO GROWTH IN 3 DAYS Resulted 05/20/17 16:50 Blood Peripheral Aerobic Blood Culture - Preliminary NO GROWTH IN 3 DAYS Resulted 05/20/17 16:50 Blood Peripheral Anaerobic Blood Culture - Preliminary NO GROWTH IN 3 DAYS Resulted 05/20/17 13:30 Stool Stool Cyclospora Exam - Final NO CYCLOSPORA SEEN Complete 05/20/17 13:30 Stool Stool Cryptosporidium Exam - Final NEGATIVE - NO CRYPTOSPORIDIUM ANTIGEN... Complete 05/20/17 13:30 Stool Stool Stool Pus (KEYANA) - Final NO WBC'S SEEN Complete 05/20/17 13:30 Stool Stool Giardia Antigen (KEYANA) - Final NEGATIVE - NO GIARDIA ANTIGEN DETECTE... Complete 05/20/17 13:30 Stool Stool Rotavirus Antigen - Final NEGATIVE - ROTAVIRUS ANTIGEN IS ABSEN... Complete 05/20/17 14:00 Urine Random Urine Urine Culture - Final NO GROWTH IN 48 HOURS. Complete Imaging Last Impressions Neck CT 05/20/17 1633 Signed Impressions: Service Date/Time: Saturday, May 20, 2017 17:26 - CONCLUSION: 1. Limited evaluation secondary to lack of intravenous contrast. No masses are identified 2. Nonspecific slightly enlarged nodes in group 2 on the right Isma Randhawa MD Chest CT 05/20/17 1633 Signed Impressions: Service Date/Time: Saturday, May 20, 2017 17:29 - CONCLUSION: Patchy airspace disease both lung base is without pleural effusion. Zeus Pulido MD FACR Abdomen/Pelvis CT 05/20/17 1633 Signed Impressions: Service Date/Time: Saturday, May 20, 2017 17:29 - CONCLUSION: Limited exam without oral intravenous contrast. There is no free air. Do not see evidence for an abscess.. Zeus Pulido MD FACR Chest X-Ray 05/20/17 0930 Signed Impressions: Service Date/Time: Saturday, May 20, 2017 09:45 - CONCLUSION: No acute disease. Zeus Pulido MD FACR Abdomen Ultrasound 05/20/17 0000 Signed Impressions: Service Date/Time: Saturday, May 20, 2017 12:08 - CONCLUSION: Scattered small hyperechoic nonspecific there is left lobe of the liver. There are no gallstones. CT scan with contrast may be of benefit. Zeus Pulido MD FACR Physical Exam GENERAL: This is a well-nourished, well-developed patient, in no apparent distress. SKIN: No rashes, ecchymoses or lesions. Cool and dry. HEAD: Atraumatic. Normocephalic. No temporal or scalp tenderness. EYES: Pupils equal round and reactive. Extraocular motions intact. No scleral icterus. No injection or drainage. ENT: Nose without bleeding, purulent drainage or septal hematoma. Throat without erythema, tonsillar hypertrophy or exudate. Uvula midline. Airway patent. NECK: Trachea midline. Not able to flex spontaneously. On flexing her neck she reports pain in neck but I was able to move neck side to side. No LN sophie appreciated. CARDIOVASCULAR: Regular rate and rhythm without murmurs, gallops, or rubs. RESPIRATORY: Clear to auscultation. Breath sounds equal bilaterally. No wheezes , rales, or rhonchi. GASTROINTESTINAL: Abdomen soft, non-tender, nondistended. MUSCULOSKELETAL: Extremities without clubbing, cyanosis, or edema. No joint tenderness, effusion, or edema noted. No calf tenderness. Negative Homans sign bilaterally. NEUROLOGICAL: Awake and alert. Non focal exam. Psych cooperative IV line sites with no e.o infection. Assessment & Plan Remarks Sepsis Acute onset of gastroenteritis. Suspect it was likely viral GE to start off and now has secretory diarrhea component post infectious inflammatory component. Acute renal failure (prerenal, sepsis) Acute onset tingling numbness with generalized weakness (starting lower body progressively involving UE) Rule out GB syndrome: low probability Acute thrombocytopenia with DIC like picture (HUS, sepsis) Tingling numbness: ? metabolic vs GB syndrome. Rash: ? drug induced vs viral process. Recs: Continue Cefepime IV renal dose adjusted by me for one more day. Might stop all antibiotics except flagyl in am. Continue Flagyl IV Follow Stool studies and cultures. Mycoplasma IgG does not need treatment. Follow clinically. cora Patient,Parents and Grandma in room: updated about ID processes. Krista Chakraborty MD May 23, 2017 12:58
[2017-05-23 13:30] LABS: ALB/GLOB RATIO (SPE) 1.33 (1.39-2.23)
[2017-05-23] MEDS ORDERED: diphenhydrAMINE HCL 50 MG/ML VIAL IV PUSH PRN ×2 (14:00)
--- NOTE | 2017-05-23 14:24 | RADRPT ---
EXAM DATE/TIME: 05/23/2017 13:17 [facility] COMPARISON: CHEST SINGLE AP, May 22, 2017, 7:05. CT ABDOMEN & PELVIS W/O CONTRAST, May 20, 2017, 17:29. INDICATIONS : Elevated liver enzymes. MEDICAL HISTORY : None. SURGICAL HISTORY : None. ENCOUNTER: Initial ACUITY: 3 day PAIN SCORE: 4/10 LOCATION: Right upper quadrant TECHNIQUE: Multiplanar, multisequence magnetic resonance imaging of the abdomen was performed. High-resolution 3D dataset was utilized to reconstruct maximum-intensity projection (MIP) images. The lack of IV cont rast limits the diagnosis for certain organ pathology. FINDINGS: INTRAHEPATIC BILE DUCTS: Within normal limits. No significant anatomical variant is present. EXTRAHEPATIC BILE DUCTS: The common bile duct measures 2 mm No stone or filling defect is identified. GALLBLADDER: No stones, wall thickening, or pericholecystic fluid. LIVER: Normal signal intensity. The liver is mildly enlarged measuring 19.0 cm. No concerning liver lesion i s identified on this non-contrast exam. PANCREAS: The main pancreatic duct is normal in size. There is no significant anatomical variant. Signal inte nsity is within normal limits. No mass is visualized on this non-contrast exam. OTHER: There are infiltrates in both lung bases. Otherwise, the remaining visualized structures demonstrate no acute abnormality on this non-contrast exam. CONCLUSION: 1. No evidence of gallstones or biliary tract obstruction. 2. Mild diffuse enlargement of the liver. Derrick Raman MD on May 23, 2017 at 14:18 Board Certified Radiologist. This report was verified electronically.
--- NOTE | 2017-05-23 15:38 | HHI.GIFU ---
Subjective Remarks Pt resting in bed in NAD, preparing to order food. Says she is breathing easier today. Father and grandmother at bedside. (Rachel Gan) Objective Vitals I&O Vital Signs Date Time Temp Pulse Resp B/P (MAP) Pulse Ox O2 Delivery O2 Flow Rate FiO2 05/23/17 12:00 83 05/23/17 12:00 97.7 82 29 95/57 (70) 97 05/23/17 10:14 75 05/23/17 08:47 95 Nasal Cannula 2.00 05/23/17 08:00 98.0 65 20 100/60 (73) 98 05/23/17 08:00 96 117/60 (79) 05/23/17 08:00 78 05/23/17 08:00 77 05/23/17 07:00 100 Nasal Cannula 3.00 05/23/17 06:00 88 05/23/17 04:00 82 05/23/17 04:00 98.0 82 20 101/56 (71) 98 05/23/17 02:00 84 05/23/17 00:00 99.1 98 21 100/55 (70) 95 05/23/17 00:00 98 05/22/17 22:00 106 05/22/17 20:17 100 Nasal Cannula 2.00 05/22/17 20:00 98.4 92 24 102/55 (71) 100 05/22/17 20:00 100 Nasal Cannula 3.00 05/22/17 20:00 92 05/22/17 18:00 96 05/22/17 18:00 96 117/60 (79) 05/22/17 16:00 99 05/22/17 16:00 99.3 99 32 117/60 (79) 98 I/O 05/22/17 05/22/17 05/22/17 05/23/17 05/23/17 05/23/17 07:00 15:00 23:00 07:00 15:00 23:00 Intake Total 2940 ml 530 ml 1626.5 ml 1184 ml Output Total 1500 ml 1850 ml 2300 ml 3775 ml Balance 1440 ml -1320 ml -673.5 ml -2591 ml Intake Oral 180 ml 400 ml IV Total 2940 ml 230 ml 1446.5 ml 100 ml TPN/PPN 684 ml Other 300 ml Output Urine Total 800 ml 1250 ml 2000 ml 3175 ml Stool Total 700 ml 600 ml 300 ml 600 ml Laboratory Laboratory Tests Test 05/22/17 18:00 05/23/17 05:10 Potassium Level 3.6 3.2 Calcium Level 8.8 8.1 White Blood Count 12.6 Red Blood Count 3.05 Hemoglobin 9.1 Hematocrit 27.0 Mean Corpuscular Volume 88.6 Mean Corpuscular Hemoglobin 29.7 Mean Corpuscular Hemoglobin Concent 33.5 Red Cell Distribution Width 13.6 Platelet Count 55 Mean Platelet Volume 9.6 Prothrombin Time 11.8 Prothromb Time International Ratio 1.1 Activated Partial Thromboplast Time 33.2 Fibrinogen 420 Blood Urea Nitrogen 24 Creatinine 1.15 Random Glucose 104 Total Protein 5.1 Albumin 2.1 Alkaline Phosphatase 76 Aspartate Amino Transf (AST/SGOT) 73 Alanine Aminotransferase (ALT/SGPT) 49 Lactate Dehydrogenase 247 Total Bilirubin 4.0 Direct Bilirubin 3.2 Sodium Level 139 Chloride Level 100 Carbon Dioxide Level 32.1 Anion Gap 7 Estimat Glomerular Filtration Rate 74 Indirect Bilirubin 0.8 Date/Time Source Procedure Growth Status 05/20/17 16:50 Blood Peripheral Aerobic Blood Culture - Preliminary NO GROWTH IN 3 DAYS Resulted 05/20/17 16:50 Blood Peripheral Anaerobic Blood Culture - Preliminary NO GROWTH IN 3 DAYS Resulted 05/20/17 13:30 Stool Stool Cyclospora Exam - Final NO CYCLOSPORA SEEN Complete 05/20/17 13:30 Stool Stool Cryptosporidium Exam - Final NEGATIVE - NO CRYPTOSPORIDIUM ANTIGEN... Complete 05/20/17 13:30 Stool Stool Stool Pus (KEYANA) - Final NO WBC'S SEEN Complete 05/20/17 13:30 Stool Stool Giardia Antigen (KEYANA) - Final NEGATIVE - NO GIARDIA ANTIGEN DETECTE... Complete 05/20/17 09:40 Throat Group A Streptococcus Screen - Final NO GP A BETA STREP ISOLATED. Complete 05/20/17 14:00 Urine Random Urine Urine Culture - Final NO GROWTH IN 48 HOURS. Complete Imaging Last Impressions Chest X-Ray 05/22/17 0000 Signed Impressions: Service Date/Time: Saturday, May 22, 2017 07:05 - CONCLUSION: 1. Rapid development of extensive airspace disease which may represent pulmonary edema considering the patient's history. 2. Cardiomegaly Paul Malone MD Neck CT 05/20/17 1633 Signed Impressions: Service Date/Time: Saturday, May 20, 2017 17:26 - CONCLUSION: 1. Limited evaluation secondary to lack of intravenous contrast. No masses are identified 2. Nonspecific slightly enlarged nodes in group 2 on the right Isma Randhawa MD Chest CT 05/20/17 1633 Signed Impressions: Service Date/Time: Saturday, May 20, 2017 17:29 - CONCLUSION: Patchy airspace disease both lung base is without pleural effusion. Zeus Pulido MD FACR Abdomen/Pelvis CT 05/20/17 1633 Signed Impressions: Service Date/Time: Saturday, May 20, 2017 17:29 - CONCLUSION: Limited exam without oral intravenous contrast. There is no free air. Do not see evidence for an abscess.. Zeus Pulido MD FACR Abdomen Ultrasound 05/20/17 0000 Signed Impressions: Service Date/Time: Saturday, May 20, 2017 12:08 - CONCLUSION: Scattered small hyperechoic nonspecific there is left lobe of the liver. There are no gallstones. CT scan with contrast may be of benefit. Zeus Pulido MD FACR Physical Exam HEENT: PERRL; normocephalic; atraumatic; no jaundice. O2 via NC CHEST: CTA CARDIAC: RRR ABDOMEN: Soft, nondistended, nontender; no hepatosplenomegaly; bowel sounds are present in all four quadrants. stool bag with watery brown stool EXTREMITIES: No clubbing, cyanosis, or edema. SKIN: Normal; no rash; no jaundice. HOROLOGIST APPRENTICE: No focal deficits; alert and oriented times three. (Rachel Gan [facility]) Assessment and Plan Plan ASSESSMENT: - N/V/D. Sudden onset on Saturday. CT Scan abdomen and pelvis (05/20/17)---> Limited exam without oral intravenous contrast, there is no free air. Do not see evidence for an abscess. One contact with flu like symptoms, no recent travel, suspicious food. Stool studies were sent and negative for enteric pathogens, rotavirus, Cyclospora, wbc, clostridium difficile. Cryptosporidium and giardia neg. Hepatitis panel negative, Monscreen negative, HIV negative, RPR nonreactive, Mycoplasma IgG pos- no intervention needed per ID. s/p EGD & colonoscopy unremarkable other than hemorrhoids, path pending Flagyl per ID. On asacol.Denies n/v, abd pain. less stool since asacol started. - Elevated LFTs. mild increase today. MRCP shows no obstruction, mildly enlarged liver - Sepsis. Flu negative, BCx no growth 3 day. Stool studies negative so far. Abx per ID. ?viral enteritis with pos infection colitis - Thrombocytopenia/Coagulopathy. Hematology following, likely related to sepsis. - HANSEL. Creat improving PLAN: - await biopsies - NELSY - cont asacol - Abx per ID - Monitor labs - Further recommendations to follow based on results of above This pt seen by myself and Dr Conde and this note is written on his behalf (Rachel Gan) Physician Comments Seen and examined, plan as above. Will follow up with you. Further recommendations to follow. (Christine Conde MD) Rachel Gan May 23, 2017 15:38 Christine Conde MD May 23, 2017 21:30
[2017-05-24] VITALS (17 sets, daily range): BP systolic 91–105; BP diastolic 49–68; PULSE 68–85; RESP 24–28; TEMP 97.9–99.4; O2SAT 96–100
[2017-05-24] MEDS: HEPARIN SODIUM - SQ 10,000 UNITS/ML VIAL SQ SCH ×4 (01:06→14:10)
[2017-05-24] MEDS: CHLORHEXIDINE GLUCONATE 2 % 1 PACK (2 CLOTHS) TOP SCH ×2 (04:00)
[2017-05-24] MEDS: MESALAMINE HD 800 MG DELAYED RELEASE TAB PO SCH ×6 (06:26→22:28)
[2017-05-24 07:03] LABS: HEMATOCRIT 31.3 % (35.0-46.0); HEMOGLOBIN 10.2 GM/DL (11.6-15.3); MEAN CORPUSCULAR HEMOGLOBIN 29.4 PG (27.0-34.0); MEAN CORPUSCULAR HGB CONC 32.7 % (32.0-36.0); MEAN PLATELET VOLUME 10.9 FL (7.0-11.0); PLATELET COUNT 73 TH/MM3 (150-450); RED BLOOD COUNT 3.48 MIL/MM3 (4.00-5.30); RED CELL DISTRIBUTION WIDTH 13.6 % (11.6-17.2); WHITE BLOOD COUNT 12.7 TH/MM3 (4.0-11.0)
[2017-05-24 07:17] LABS: INTERNATIONAL NORMALIZED RATIO 1.1 RATIO; PROTHROMBIN TIME - PATIENT 12.1 SEC (9.8-11.6)
[2017-05-24 07:56] LABS: ALBUMIN 2.2 GM/DL (3.4-5.0); BICARBONATE 27.2 MEQ/L (21.0-32.0); CREATININE 0.92 MG/DL (0.50-1.00); DIRECT BILIRUBIN ADULT 1.2 MG/DL (0.0-0.2)
[2017-05-24 08:09] LABS: INDIRECT BILIRUBIN 0.6 MG/DL (0.0-0.8); TOTAL BILIRUBIN ADULT 1.8 MG/DL (0.2-1.0); TOTAL PROTEIN 5.4 GM/DL (6.4-8.2)
[2017-05-24] MEDS: metroNIDAZOLE 500 MG INJ 100 ML IV SCH ×6 (08:20→23:50)
--- NOTE | 2017-05-24 10:23 | HHI.GIFU ---
Subjective Remarks Resting in bed. States she is feeling much better. Her diarrhea output has decreased. (Nataly Rodríguez) Objective Vitals I&O Vital Signs Date Time Temp Pulse Resp B/P (MAP) Pulse Ox O2 Delivery O2 Flow Rate FiO2 05/24/17 08:10 98 Nasal Cannula 2.00 05/24/17 07:30 Nasal Cannula 3.00 98 05/24/17 06:00 97.9 68 24 94/51 (65) 98 05/24/17 06:00 68 05/24/17 04:00 98.1 76 28 94/54 (67) 98 05/24/17 04:00 76 05/24/17 02:00 70 05/24/17 02:00 98.6 70 26 92/49 (63) 100 05/24/17 01:40 70 05/24/17 00:00 98.1 79 28 93/51 (65) 99 05/23/17 22:10 98.9 84 36 94/54 (67) 98 05/23/17 22:00 84 05/23/17 20:10 82 98/56 (70) 05/23/17 20:00 90 05/23/17 20:00 98.2 82 30 98/56 (70) 98 05/23/17 20:00 98 Nasal Cannula 3.00 05/23/17 20:00 98 Nasal Cannula 3.00 05/23/17 18:00 78 113/77 (89) 05/23/17 18:00 81 05/23/17 16:00 73 05/23/17 16:00 98.6 73 33 111/79 (90) 99 05/23/17 13:45 96 Nasal Cannula 3.00 05/23/17 13:45 98.6 77 24 105/70 (82) 97 05/23/17 13:45 77 05/23/17 13:45 96 Nasal Cannula 3.00 05/23/17 12:00 83 05/23/17 12:00 97.7 82 29 95/57 (70) 97 05/23/17 10:14 75 I/O 05/23/17 05/23/17 05/23/17 05/24/17 05/24/17 05/24/17 07:00 15:00 23:00 07:00 15:00 23:00 Intake Total 1184 ml 240 ml 620 ml Output Total 3775 ml 3300 ml 2850 ml Balance -2591 ml -3060 ml -2230 ml Intake Oral 400 ml 240 ml 300 ml IV Total 100 ml 320 ml TPN/PPN 684 ml Output Urine Total 3175 ml 2900 ml 2800 ml Stool Total 600 ml 400 ml 50 ml Laboratory Laboratory Tests Test 05/23/17 19:45 05/24/17 06:30 Random Cortisol 13.3 White Blood Count 12.7 Red Blood Count 3.48 Hemoglobin 10.2 Hematocrit 31.3 Mean Corpuscular Volume 90.0 Mean Corpuscular Hemoglobin 29.4 Mean Corpuscular Hemoglobin Concent 32.7 Red Cell Distribution Width 13.6 Platelet Count 73 Mean Platelet Volume 10.9 Prothrombin Time 12.1 Prothromb Time International Ratio 1.1 Activated Partial Thromboplast Time 26.1 Fibrinogen 414 Blood Urea Nitrogen 27 Creatinine 0.92 Random Glucose 94 Total Protein 5.4 Albumin 2.2 Calcium Level 8.0 Alkaline Phosphatase 91 Aspartate Amino Transf (AST/SGOT) 77 Alanine Aminotransferase (ALT/SGPT) 50 Lactate Dehydrogenase 252 Total Bilirubin 1.8 Direct Bilirubin 1.2 Sodium Level 142 Potassium Level 3.2 Chloride Level 107 Carbon Dioxide Level 27.2 Anion Gap 8 Estimat Glomerular Filtration Rate 95 Indirect Bilirubin 0.6 Date/Time Source Procedure Growth Status 05/20/17 16:50 Blood Peripheral Aerobic Blood Culture - Preliminary NO GROWTH IN 3 DAYS Resulted 05/20/17 16:50 Blood Peripheral Anaerobic Blood Culture - Preliminary NO GROWTH IN 3 DAYS Resulted 05/20/17 13:30 Stool Stool Cyclospora Exam - Final NO CYCLOSPORA SEEN Complete 05/20/17 13:30 Stool Stool Cryptosporidium Exam - Final NEGATIVE - NO CRYPTOSPORIDIUM ANTIGEN... Complete 05/20/17 13:30 Stool Stool Stool Pus (KEYANA) - Final NO WBC'S SEEN Complete 05/20/17 13:30 Stool Stool Giardia Antigen (KEYANA) - Final NEGATIVE - NO GIARDIA ANTIGEN DETECTE... Complete 05/20/17 09:40 Throat Group A Streptococcus Screen - Final NO GP A BETA STREP ISOLATED. Complete 05/20/17 14:00 Urine Random Urine Urine Culture - Final NO GROWTH IN 48 HOURS. Complete Imaging Last Impressions Cholangiopancreatography MRI 05/23/17 0000 Signed Impressions: Service Date/Time: May 13:17 - CONCLUSION: 1. No evidence of gallstones or biliary tract obstruction. 2. Mild diffuse enlargement of the liver. Derrick Raman MD Chest X-Ray 05/22/17 0000 Signed Impressions: Service Date/Time: Monday, May 22, 2017 07:05 - CONCLUSION: 1. Rapid development of extensive airspace disease which may represent pulmonary edema considering the patient's history. 2. Cardiomegaly Paul Malone MD Neck CT 05/20/17 1633 Signed Impressions: Service Date/Time: Saturday, May 20, 2017 17:26 - CONCLUSION: 1. Limited evaluation secondary to lack of intravenous contrast. No masses are identified 2. Nonspecific slightly enlarged nodes in group 2 on the right Isma Randhawa MD Chest CT 05/20/17 1633 Signed Impressions: Service Date/Time: Saturday, May 20, 2017 17:29 - CONCLUSION: Patchy airspace disease both lung base is without pleural effusion. Zeus Pulido MD FACR Abdomen/Pelvis CT 05/20/17 1633 Signed Impressions: Service Date/Time: Saturday, May 20, 2017 17:29 - CONCLUSION: Limited exam without oral intravenous contrast. There is no free air. Do not see evidence for an abscess.. Zeus Pulido MD FACR Abdomen Ultrasound 05/20/17 0000 Signed Impressions: Service Date/Time: Saturday, May 20, 2017 12:08 - CONCLUSION: Scattered small hyperechoic nonspecific there is left lobe of the liver. There are no gallstones. CT scan with contrast may be of benefit. Zeus Pulido MD FACR Physical Exam HEENT: Normocephalic; atraumatic; no jaundice. CHEST: CTA CARDIAC: RRR ABDOMEN: Soft, nondistended, nontender; no hepatosplenomegaly; bowel sounds are present in all four quadrants. Rectal bag with small amount of liquid stool EXTREMITIES: No clubbing, cyanosis, or edema. SKIN: Normal; no rash; no jaundice. [employer]STRUCTION [employer]ES [employer]: No focal deficits; alert and oriented times three. (Nataly Rodríguez) Assessment and Plan Plan ASSESSMENT: - N/V/D. Sudden onset on Saturday. CT Scan abdomen and pelvis (05/20/17)---> Limited exam without oral intravenous contrast, there is no free air. Do not see evidence for an abscess. One contact with flu like symptoms, no recent travel, suspicious food. Stool studies were sent and negative for enteric pathogens, rotavirus, Cyclospora, wbc, clostridium difficile. Cryptosporidium and giardia neg. Hepatitis panel negative, Monscreen negative, HIV negative, RPR nonreactive, Past mycoplasma pneumonia infection. S/P EGD/Colonoscopy 1. Duodenum normal-biopsy from second portion and duodenal bulb gastritis antrum-biopsy gastric body-biopsy esophagitis distal esophagus-biopsy 2. Retroflexed views revealed no abnormalities 1. Normal colon-random biopsies from ascending, transverse, descending, rectum, sigmoid 2. Retroflexed views revealed internal hemorrhoids 3. Retroflexed views revealed small internal hemorrhoids 4. Revealed no abnormalities of the rectum. Flagyl per ID. On asacol for possible post infectious colitis following suspected viral gastroenteritis. Clinically improved. - Elevated LFTs. MRCP (05/23/17)----> No evidence of gallstones or biliary tract obstrution. Mild diffuse enlargement of the liver. LFTs improving, T. Bili 1.8, AST 77, ALT 50, Alk Phosph 91. - Sepsis. Flu negative, BCx no growth 3 day. Stool studies negative so far. Abx per ID. ?viral enteritis with pos infection colitis - Thrombocytopenia/Coagulopathy. Hematology following, likely related to sepsis. - HANSEL. Creat improving PLAN: - NELSY - Await pathology from EGD/Colonoscopy - Cont. Asacol-HD - Monitor labs - Monitor stool output - Further recommendations to follow based on results of above - This pt seen by myself and Dr Conde and this note is written on his behalf (Nataly Rodríguez) Physician Comments Seen and examined, plan as above. Biopsies and cultures pending, further stool studies requested. Will follow up with you. (Christine Conde MD) Nataly Rodríguez May 24, 2017 10:23 Christine Conde MD May 24, 2017 16:50
--- NOTE | 2017-05-24 11:01 | HHI.IDPN ---
Subjective Subjective Remarks is a 21 y/o AAF with no significant PMHx who presents with acute onset of diarrhea, N/V, extreme weakness with no urine output for ~ 3 days prior to admission. Patient reports she was playing her usual volley ball game and came home and had a a nap. When she woke up she felt nauseous, vomited couple of times and had diarrhea with no blood since then. She continued to have these symptoms since that day and progressively felt weak, achy with headaches. She denies any visual problems. She reports discomfort in her throat and secretions accumulating in mouth. She denies any soreness although on exam she has erythema. She denies any difficulty swallowing. She reports an acute steady decline in urine output and has had no urine output since 2 days. She reports myalgias and extreme weakness and could not participate in a neuro exam. She reports neck pain but no neck stiffness and is able to move her neck side ways. She denies any rash. Foods consumed last week: Salads, chilli, McD[employer] burger and apple pie. She denies eating any cold cuts, hot dogs or fresh cheeses. In fact she does not like cheese. She lives with her room mates from college and 1 other person has flu like symptoms but no one else has GI symptoms. She has never been tested for hepatitis and HIV. She is currently in her periods and reports using tampons earlier on but she removed them in their entirety. No vaginal foul smelling discharge other than usual menstrual blood. She reports being sexually active but protected sex with no oral activity. On presentation to the ED she reported a fever 101 F at home, subjective chills. She had a SBP 85, lactic acid elevated, WBC elevated at 14.5 with Dohle' s bodies, no obvious schistocytes, LDH and Hapto are normal but Ddimer is elevated and coag abnormal with elevated INR. Pathologist review of smear is pending at present time. I personally called and notified need for stat PS review by pathologist. BP continued to be low so patient was transferred to [facility] under systems security analyst service. Central line and A line are being placed. ID consulted for evaluation and Mment of sepsis possible HUS. Overnight events reviewed. Off pressors. Alert, oriented. Denies any tingling and numbness. UO improved. Diarrhea volume decreased from 1600 cc to 50 cc after Asacol added. No Nausea/vomiting. Eating soft diet. Developed rash to Cefepime Antibiotics I attest I reviewed, obtained or reviewed pts home meds and current meds. Cefepime IV Flagyl IV Lines Line sites with no e.o infection Past Medical History reviewed and none Allergies: Coded Allergies: cefepime (Verified Allergy, Mild, Hives, 05/23/17) Objective . Vital Signs Date Time Temp Pulse Resp B/P (MAP) Pulse Ox O2 Delivery O2 Flow Rate FiO2 05/24/17 08:10 98 Nasal Cannula 2.00 05/24/17 07:30 Nasal Cannula 3.00 98 05/24/17 06:00 97.9 68 24 94/51 (65) 98 05/24/17 06:00 68 05/24/17 04:00 98.1 76 28 94/54 (67) 98 05/24/17 04:00 76 05/24/17 02:00 70 05/24/17 02:00 98.6 70 26 92/49 (63) 100 05/24/17 01:40 70 05/24/17 00:00 98.1 79 28 93/51 (65) 99 05/23/17 22:10 98.9 84 36 94/54 (67) 98 05/23/17 22:00 84 05/23/17 20:10 82 98/56 (70) 05/23/17 20:00 90 05/23/17 20:00 98.2 82 30 98/56 (70) 98 05/23/17 20:00 98 Nasal Cannula 3.00 05/23/17 20:00 98 Nasal Cannula 3.00 05/23/17 18:00 78 113/77 (89) 05/23/17 18:00 81 05/23/17 16:00 73 05/23/17 16:00 98.6 73 33 111/79 (90) 99 05/23/17 13:45 96 Nasal Cannula 3.00 05/23/17 13:45 98.6 77 24 105/70 (82) 97 05/23/17 13:45 77 05/23/17 13:45 96 Nasal Cannula 3.00 05/23/17 12:00 83 05/23/17 12:00 97.7 82 29 95/57 (70) 97 . Laboratory Tests Test 05/23/17 05:10 05/24/17 06:30 White Blood Count 12.6 TH/MM3 12.7 TH/MM3 Red Blood Count 3.05 MIL/MM3 3.48 MIL/MM3 Hemoglobin 9.1 GM/DL 10.2 GM/DL Hematocrit 27.0 % 31.3 % Mean Corpuscular Volume 88.6 FL 90.0 FL Mean Corpuscular Hemoglobin 29.7 PG 29.4 PG Mean Corpuscular Hemoglobin Concent 33.5 % 32.7 % Red Cell Distribution Width 13.6 % 13.6 % Platelet Count 55 TH/MM3 73 TH/MM3 Mean Platelet Volume 9.6 FL 10.9 FL Laboratory Tests Test 05/22/17 18:00 05/23/17 05:10 05/23/17 19:45 05/24/17 06:30 Potassium Level 3.6 MEQ/L 3.2 MEQ/L 3.2 MEQ/L Calcium Level 8.8 MG/DL 8.1 MG/DL 8.0 MG/DL Blood Urea Nitrogen 24 MG/DL 27 MG/DL Creatinine 1.15 MG/DL 0.92 MG/DL Random Glucose 104 MG/DL 94 MG/DL Total Protein 5.1 GM/DL 5.4 GM/DL Albumin 2.1 GM/DL 2.2 GM/DL Alkaline Phosphatase 76 U/L 91 U/L Aspartate Amino Transf (AST/SGOT) 73 U/L 77 U/L Alanine Aminotransferase (ALT/SGPT) 49 U/L 50 U/L Lactate Dehydrogenase 247 U/L 252 U/L Total Bilirubin 4.0 MG/DL 1.8 MG/DL Direct Bilirubin 3.2 MG/DL 1.2 MG/DL Sodium Level 139 MEQ/L 142 MEQ/L Chloride Level 100 MEQ/L 107 MEQ/L Carbon Dioxide Level 32.1 MEQ/L 27.2 MEQ/L Anion Gap 7 MEQ/L 8 MEQ/L Estimat Glomerular Filtration Rate 74 ML/MIN 95 ML/MIN Indirect Bilirubin 0.8 MG/DL 0.6 MG/DL Random Cortisol 13.3 MCG/DL Imaging Last Impressions Neck CT 05/20/17 2298 Signed Impressions: Service Date/Time: Saturday, May 20, 2017 17:26 - CONCLUSION: 1. Limited evaluation secondary to lack of intravenous contrast. No masses are identified 2. Nonspecific slightly enlarged nodes in group 2 on the right Isma B. Turetsky, MD Chest CT 05/20/17 1633 Signed Impressions: Service Date/Time: Saturday, May 20, 2017 17:29 - CONCLUSION: Patchy airspace disease both lung base is without pleural effusion. Zeus Pulido MD FACR Abdomen/Pelvis CT 05/20/17 1633 Signed Impressions: Service Date/Time: Saturday, May 20, 2017 17:29 - CONCLUSION: Limited exam without oral intravenous contrast. There is no free air. Do not see evidence for an abscess.. Zeus Pulido MD FACR Chest X-Ray 05/20/17 0930 Signed Impressions: Service Date/Time: Saturday, May 20, 2017 09:45 - CONCLUSION: No acute disease. Zeus Pulido MD FACR Abdomen Ultrasound 05/20/17 0000 Signed Impressions: Service Date/Time: Saturday, May 20, 2017 12:08 - CONCLUSION: Scattered small hyperechoic nonspecific there is left lobe of the liver. There are no gallstones. CT scan with contrast may be of benefit. Zeus Pulido MD FACR Physical Exam GENERAL: This is a well-nourished, well-developed patient, in no apparent distress. SKIN: No rashes, ecchymoses or lesions. Cool and dry. HEAD: Atraumatic. Normocephalic. No temporal or scalp tenderness. EYES: Pupils equal round and reactive. Extraocular motions intact. No scleral icterus. No injection or drainage. ENT: Nose without bleeding, purulent drainage or septal hematoma. Throat without erythema, tonsillar hypertrophy or exudate. Uvula midline. Airway patent. NECK: Trachea midline. Not able to flex spontaneously. On flexing her neck she reports pain in neck but I was able to move neck side to side. No LN sophie appreciated. CARDIOVASCULAR: Regular rate and rhythm without murmurs, gallops, or rubs. RESPIRATORY: Clear to auscultation. Breath sounds equal bilaterally. No wheezes , rales, or rhonchi. GASTROINTESTINAL: Abdomen soft, non-tender, nondistended. MUSCULOSKELETAL: Extremities without clubbing, cyanosis, or edema. No joint tenderness, effusion, or edema noted. No calf tenderness. Negative Homans sign bilaterally. NEUROLOGICAL: Awake and alert. Non focal exam. Psych cooperative IV line sites with no e.o infection. Assessment & Plan Remarks Sepsis improving. Acute onset of gastroenteritis. Suspect it was likely viral GE to start off and now has secretory diarrhea component post infectious inflammatory component. Acute renal failure (prerenal, sepsis) Acute onset tingling numbness with generalized weakness (starting lower body progressively involving UE) Rule out GB syndrome: low probability Acute thrombocytopenia with DIC like picture (HUS, sepsis) Tingling numbness: ? metabolic vs GB syndrome. Rash: ? drug induced vs viral process. Recs: Continue Cefepime IV renal dose adjusted by me for one more day. Might stop all antibiotics except flagyl in am. Continue Flagyl IV Follow Stool studies and cultures. Mycoplasma IgG does not need treatment. Follow clinically. d.w Patient,Parents and Grandma in room: updated about ID processes. d/w Mom and pt that will likely stop flagyl IV if GI agrees as suspect this was a viral process. Will follow prn over the weekend. covering for me this weekend. Krista Chakraborty MD May 24, 2017 11:01
--- NOTE | 2017-05-24 13:05 | PD.ONC.PN ---
Subjective Subjective Remarks Afebrile overnight. Patient feeling much better today. Eating lunch. Still with cough productive of sputum. Objective Data Date Time Temp Pulse Resp B/P (MAP) Pulse Ox O2 Delivery O2 Flow Rate FiO2 05/24/17 12:00 85 05/24/17 12:00 99.4 85 25 95/62 (73) 97 05/24/17 10:00 82 05/24/17 10:00 98.2 82 24 98/56 (70) 96 05/24/17 08:10 98 Nasal Cannula 2.00 05/24/17 08:00 98.0 72 26 91/52 (65) 98 05/24/17 08:00 72 05/24/17 07:30 Nasal Cannula 3.00 98 05/24/17 06:00 97.9 68 24 94/51 (65) 98 05/24/17 06:00 68 05/24/17 04:00 98.1 76 28 94/54 (67) 98 05/24/17 04:00 76 05/24/17 02:00 70 05/24/17 02:00 98.6 70 26 92/49 (63) 100 05/24/17 01:40 70 05/24/17 00:00 98.1 79 28 93/51 (65) 99 05/23/17 22:10 98.9 84 36 94/54 (67) 98 05/23/17 22:00 84 05/23/17 20:10 82 98/56 (70) 05/23/17 20:00 90 05/23/17 20:00 98.2 82 30 98/56 (70) 98 05/23/17 20:00 98 Nasal Cannula 3.00 05/23/17 20:00 98 Nasal Cannula 3.00 05/23/17 18:00 78 113/77 (89) 05/23/17 18:00 81 05/23/17 16:00 73 05/23/17 16:00 98.6 73 33 111/79 (90) 99 05/23/17 13:45 96 Nasal Cannula 3.00 05/23/17 13:45 98.6 77 24 105/70 (82) 97 05/23/17 13:45 77 05/23/17 13:45 96 Nasal Cannula 3.00 05/24/17 05/24/17 05/24/17 07:00 15:00 23:00 Intake Total 620 ml Output Total 2850 ml Balance -2230 ml Result Diagram: 05/24/17 0630 05/24/17 0630 Laboratory Results Laboratory Tests Test 05/23/17 19:45 05/24/17 06:30 Random Cortisol 13.3 MCG/DL White Blood Count 12.7 TH/MM3 Red Blood Count 3.48 MIL/MM3 Hemoglobin 10.2 GM/DL Hematocrit 31.3 % Mean Corpuscular Volume 90.0 FL Mean Corpuscular Hemoglobin 29.4 PG Mean Corpuscular Hemoglobin Concent 32.7 % Red Cell Distribution Width 13.6 % Platelet Count 73 TH/MM3 Mean Platelet Volume 10.9 FL Prothrombin Time 12.1 SEC Prothromb Time International Ratio 1.1 RATIO Activated Partial Thromboplast Time 26.1 SEC Fibrinogen 414 mg/dL Blood Urea Nitrogen 27 MG/DL Creatinine 0.92 MG/DL Random Glucose 94 MG/DL Total Protein 5.4 GM/DL Albumin 2.2 GM/DL Calcium Level 8.0 MG/DL Alkaline Phosphatase 91 U/L Aspartate Amino Transf (AST/SGOT) 77 U/L Alanine Aminotransferase (ALT/SGPT) 50 U/L Lactate Dehydrogenase 252 U/L Total Bilirubin 1.8 MG/DL Direct Bilirubin 1.2 MG/DL Sodium Level 142 MEQ/L Potassium Level 3.2 MEQ/L Chloride Level 107 MEQ/L Carbon Dioxide Level 27.2 MEQ/L Anion Gap 8 MEQ/L Estimat Glomerular Filtration Rate 95 ML/MIN Indirect Bilirubin 0.6 MG/DL Administered Medications Medications (Trade) Dose Ordered Sig/Juju Route PRN Reason Start Time Stop Time Status Last Admin Dose Admin Ondansetron HCl (Zofran Inj) 4 mg Q6H PRN IV PUSH NAUSEA OR VOMITING 05/20/17 12:00 05/21/17 05:56 Heparin Sodium (Porcine) (Heparin Inj) 5,000 units Q12H SQ 05/20/17 13:00 05/24/17 01:06 Miscellaneous Information 1 Q361D XX 05/20/17 12:00 05/20/17 20:24 Norepinephrine Bitartrate 250 ml @ 7.5 mls/hr TITRATE PRN IV Blood pressure management 05/20/17 14:45 05/21/17 00:13 Metronidazole 100 ml @ 100 mls/hr Q8H IV 10/30/17 16:00 05/24/17 08:20 Potassium Chloride 100 ml @ 50 mls/hr Q2H PRN IV For Potassium 2.8 - 3.2 mEq/L 05/22/17 06:15 05/24/17 10:41 Mesalamine (Asacol Hd Dr) 1,600 mg Q8HR PO 05/22/17 14:00 05/24/17 06:26 Diphenhydramine HCl (Benadryl Inj) 25 mg Q4H PRN IV PUSH Hives 05/23/17 14:00 05/23/17 14:27 Objective Remarks GENERAL: Young woman, sitting up in bed in nad. Eating lunch. On 2L O2 via NC SKIN: Warm and dry. HEAD: Normocephalic. EYES: No injection or drainage. NECK: Supple, trachea midline. CARDIOVASCULAR: Regular rate and rhythm RESPIRATORY: Breath sounds equal bilaterally. No accessory muscle use. GASTROINTESTINAL: Abdomen soft, non-tender, nondistended. EXTREMITIES: No cyanosis NEUROLOGICAL: No obvious focal deficit. Awake, alert, and oriented x3. Assessment/Plan Problem List: (1) Thrombocytopenia ICD Codes: D69.6 - Thrombocytopenia, unspecified Plan: 05/24: platelets and coags improving. monitor CBC. d/w patient, patient's parents and nurse. --due to sepsis and possible DIC. --No evidence of microangiopathic hemolytic anemia. --peripheral smear-->No evidence of schistocytes noted. --bilirubin is elevated due to shock liver. --will give cryo for fibrinogen less than 100 --expect her platelet count to go down before it will improve back to normal due to her current septic shock syndrome. (2) Nausea vomiting and diarrhea ICD Codes: R11.2 - Nausea with vomiting, unspecified; R19.7 - Diarrhea, unspecified Status: Acute Plan: --unknown etiology --?GI infection --stool cultures negative so far (3) Sepsis ICD Codes: A41.9 - Sepsis, unspecified organism Plan: --on Flagyl --Blood cultures, 05/20, no growth Assessment 21y/o female admitted with septic shock. Hematology consulted for thrombocytopenia. Attending Statement Patient is feeling much better Creatinine is back To normal Liver enzymes are also improving Sepsis is resolving Platelets are coming up coags are Ok monitor cbc The exam, history, and the medical decision-making described in the above note were completed with the assistance of the mid-level provider. I reviewed and agree with the findings presented. I attest that I had a [id number] encounter with the patient on the same day, and personally performed and documented my assessment and findings in the medical record. Jenny Alberto May 24, 2017 13:05 Raghav Vieyra MD May 24, 2017 16:10
--- NOTE | 2017-05-24 18:26 | HHI.CCPN ---
Subjective Remarks/Hospital Course Hospital Course: This is a 21yF with no remarkable past medical history who presents to the ER with a 3 day history of nausea, vomiting, and liquid diarrhea. 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 the emesis she describes as clear to somewhat brown, without blood, not coffee grounds, without a bilious appearance. she describes her diarrhea as completely watery, again without blood or dark black color. It is not associated with food. She endorses some generalized abdominal pain, but cannot point to any one area. She also endorses fever and chills over this time period. Denies chest pain, shortness of breath. She also endorses some "tingling" of her hands and feet, although this is difficult to describe, she does describe them as "weak" and "fatigued." She also states she has not urinated x 48h. In the emergency department, she was hypotensive and tachycardic which both responded to ivf. Her laboratory data is significant for leukocytosis to 14k, thrombocytopenia 140k, INR 2.0, elevated t bili at 5.5, Cr of > 6, lactate of almost 7, significant anion-gap metabolic acidosis. Critical care medicine is consulted to evaluate and manage her septic shock and multi-organ system dysfunction. Subjective: 05/21: clinically beginning to improve. UOP increased to 60 cc/hr overnight. Cr downtrended to 3. Acidosis improving slowly. nausea persists and she still endorses generalized crampy abdominal pain, though she cannot put a finger on any one area. with regard to her strength, she still has generalized subjective weakness. vasopressors are at lower doses, but persists on inotropes and multiple vasopressors. 2d formal echocardiogram completed overnight (on inotropic therapy) and demonstrates LVEF 60%, hyperdynamic, no valvular lesions. Infectious work-up and multiple cultures still outstanding. 05/22: renal function continues to improve. still large volume watery diarrhea. less nausea today. slightly short of breath. remains on low-dose vasopressin to maintain map > 65mmHg. platelets continue to drop, but fibrinogen stable. 05/23: renal function continues to improve. GI EGD/Colonoscopy yesterday with normal appearing tissue. diarrhea some better. still persists on vasopressors, but low dose. will check random cortisol. subjectively feels better. diuresed yesterday for rapid development of pulmonary edema with rising o2 requirement, now o2 downtrending. 05/24: LFTs starting to improve. off vasopressors. diarrhea also continues to improve. platelets improving. good auto-diuresis. wbc still elevated. Objective Vital Signs Date Time Temp Pulse Resp B/P (MAP) Pulse Ox O2 Delivery O2 Flow Rate FiO2 05/24/17 17:40 98 Nasal Cannula 2.00 05/24/17 16:00 98.2 83 26 101/65 (77) 05/24/17 07:30 98 Intake and Output 05/24/17 05/24/17 05/25/17 08:00 16:00 00:00 Intake Total 620 ml Output Total 2850 ml Balance -2230 ml Result Diagram: 05/24/17 0630 05/24/17 0630 Imaging Last Impressions Neck CT 05/20/17 1633 Signed Impressions: Service Date/Time: Saturday, May 20, 2017 17:26 - CONCLUSION: 1. Limited evaluation secondary to lack of intravenous contrast. No masses are identified 2. Nonspecific slightly enlarged nodes in group 2 on the right Isma Randhawa MD Chest CT 05/20/17 1633 Signed Impressions: Service Date/Time: Saturday, May 20, 2017 17:29 - CONCLUSION: Patchy airspace disease both lung base is without pleural effusion. Zeus Pulido MD FACR Abdomen/Pelvis CT 05/20/17 1633 Signed Impressions: Service Date/Time: Saturday, May 20, 2017 17:29 - CONCLUSION: Limited exam without oral intravenous contrast. There is no free air. Do not see evidence for an abscess.. Zeus Pulido MD FACR Chest X-Ray 05/20/17 0930 Signed Impressions: Service Date/Time: Saturday, May 20, 2017 09:45 - CONCLUSION: No acute disease. Zeus Pulido MD FACR Abdomen Ultrasound 05/20/17 0000 Signed Impressions: Service Date/Time: Saturday, May 20, 2017 12:08 - CONCLUSION: Scattered small hyperechoic nonspecific there is left lobe of the liver. There are no gallstones. CT scan with contrast may be of benefit. Zeus Pulido MD FACR Objective Remarks gen: young female, lying in bed, no distress heent: nc. at. perrl. eomi. mucous membranes moist. neck: trachea midline. no jvd. chest: unlabored. 2L o2 by nc. cv: normal rate, regular rhythm. sinus by tele. abd: soft, mild generalized tenderness to palpation diffusely, no guarding, rebound. nondistended. extr: warm, improved peripheral perfusion. good cap refill. generalized edema, 1 +. neuro: awake, RASS 0. sensation grossly intact. THIAGO: RUE 4+/5 RLE 4+/5 LUE 4+/5 LLE 4+/5. no myoclonus. A/P Assessment and Plan Assessment: 21yF otherwise healthy who presented in near-extremis with multi- organ dysfunction, septic shock, DIC, severe anuric acute kidney injury, acute liver dysfunction, though slightly better. off vasopressors. clinically improving. will keep in ICU for close monitoring. needs aggressive pulmonary toilet and PT/rehab. Plan by systems: Neurologic: Extremity Weakness - stable. Neck pain - tylenol as needed for pain - neuro consult - frequent neuro checks - unlikely to be Guillain Foster. Respiratory: Atelectasis Pulmonary Edema - wean o2 by NC for spo2 > 92% - aggressive pulmonary toilet. - PT/OT. - autodiuresing. will allow to continue. Cardiovascular: Septic Shock - resolved. Myocardial Stunning secondary to septic shock - resolved. - d/c cvl. - off vasopressors. - 2d echo 05/21 on dobutamine at 2.5 mcg/kg/min: LVEF 60%, no RWMA, no valvular lesions Renal: Severe oligoanuric Acute Kidney Injury - resolved. Acute intravascular volume overload - resolving. - nephrology following. - daily bmp -- Strict I/Os - continue Mendoza catheter today, remove tomorrow if continued improvements. - renal ultrasound 05/20: no evidence of hydronephrosis. - autodiuresing. allowing to continue. FEN/GI: Suspected infectious diarrhea Acute liver dysfunction - improving. Hyponatremia - resolved. Hypokalemia Hypocalcemia Anion-gap Metabolic Acidosis - improved. Lactic Acidosis - improved. Contraction metabolic alkalosis - resolving. Acute intravascular volume overload - resolving. - trend LFTs - GI consult to assist with hepatic dysfunction and diarrhea - replace K, Ca, Mg. persistently low. - daily BMP, LFT - autodiuresing. - regular diet as tolerated. Heme/ID: Leukocytosis - improving. Probable Infectious Diarrhea Septic Shock - persistent. Thrombocytopenia - improving. Acute Coagulopathy - resolved. Disseminated Intravascular Coagulation - hematology consult - 4T score low probability for HIT - thrombocytopenia likely combination early DIC with consumption/severe sepsis - elevated INR combination early DIC and hepatic dysfunction, now improved. - trend daily CBC and coags. - abx per ID. - vazquez cultures NGTD. - stool studies negative so far. Endocrine: Hyperglycemia of critical illness -- SSI, med scale, q6h Prophylaxis: GI Prophylaxis pepcid iv DVT Prophylaxis -- SCDs -- SQH. if platelet count drops below 50k or coagulopathy worsens, will hold pharmacologic DVT prophylaxis. Lines: - 05/20 left [facility] TLC - d/c today. - Mendoza - d/c tomorrow if clinically improving. Dispo: remain in ICU. Ricardo Knight MD May 24, 2017 18:26
[2017-05-25] VITALS (11 sets, daily range): BP systolic 102–120; BP diastolic 51–76; PULSE 57–92; RESP 16–34; TEMP 97.3–98.4; O2SAT 96–100
[2017-05-25] MEDS: HEPARIN SODIUM - SQ 10,000 UNITS/ML VIAL SQ SCH ×4 (00:47→13:43)
[2017-05-25] MEDS: CHLORHEXIDINE GLUCONATE 2 % 1 PACK (2 CLOTHS) TOP SCH ×2 (04:00)
[2017-05-25] MEDS: MESALAMINE HD 800 MG DELAYED RELEASE TAB PO SCH ×6 (06:15→20:54)
[2017-05-25] MEDS: metroNIDAZOLE 500 MG INJ 100 ML IV SCH ×4 (08:50→15:58)
[2017-05-25 11:15] LABS: HEMATOCRIT 31.7 % (35.0-46.0); HEMOGLOBIN 10.5 GM/DL (11.6-15.3); MEAN CELL VOLUME 90.4 FL (80.0-100.0); MEAN CORPUSCULAR HEMOGLOBIN 29.9 PG (27.0-34.0); MEAN CORPUSCULAR HGB CONC 33.1 % (32.0-36.0); MEAN PLATELET VOLUME 10.8 FL (7.0-11.0); PLATELET COUNT 101 TH/MM3 (150-450); RED BLOOD COUNT 3.51 MIL/MM3 (4.00-5.30); RED CELL DISTRIBUTION WIDTH 13.7 % (11.6-17.2); WHITE BLOOD COUNT 13.8 TH/MM3 (4.0-11.0)
[2017-05-25 11:22] LABS: INTERNATIONAL NORMALIZED RATIO 1.1 RATIO; PROTHROMBIN TIME - PATIENT 12.1 SEC (9.8-11.6)
[2017-05-25 11:40] LABS: ALBUMIN 2.4 GM/DL (3.4-5.0); BICARBONATE 24.7 MEQ/L (21.0-32.0); CALCIUM 8.1 MG/DL (8.5-10.1); CREATININE 0.77 MG/DL (0.50-1.00)
[2017-05-25 11:41] LABS: DIRECT BILIRUBIN ADULT 0.7 MG/DL (0.0-0.2)
[2017-05-25 11:44] LABS: INDIRECT BILIRUBIN 0.4 MG/DL (0.0-0.8); TOTAL BILIRUBIN ADULT 1.1 MG/DL (0.2-1.0); TOTAL PROTEIN 5.7 GM/DL (6.4-8.2)
--- NOTE | 2017-05-25 15:22 | HHI.CCPN ---
Subjective Remarks/Hospital Course Hospital Course: This is a 21yF with no remarkable past medical history who presents to the ER with a 3 day history of nausea, vomiting, and liquid diarrhea. 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 the emesis she describes as clear to somewhat brown, without blood, not coffee grounds, without a bilious appearance. she describes her diarrhea as completely watery, again without blood or dark black color. It is not associated with food. She endorses some generalized abdominal pain, but cannot point to any one area. She also endorses fever and chills over this time period. Denies chest pain, shortness of breath. She also endorses some "tingling" of her hands and feet, although this is difficult to describe, she does describe them as "weak" and "fatigued." She also states she has not urinated x 48h. In the emergency department, she was hypotensive and tachycardic which both responded to ivf. Her laboratory data is significant for leukocytosis to 14k, thrombocytopenia 140k, INR 2.0, elevated t bili at 5.5, Cr of > 6, lactate of almost 7, significant anion-gap metabolic acidosis. Critical care medicine is consulted to evaluate and manage her septic shock and multi-organ system dysfunction. Subjective: 05/21: clinically beginning to improve. UOP increased to 60 cc/hr overnight. Cr downtrended to 3. Acidosis improving slowly. nausea persists and she still endorses generalized crampy abdominal pain, though she cannot put a finger on any one area. with regard to her strength, she still has generalized subjective weakness. vasopressors are at lower doses, but persists on inotropes and multiple vasopressors. 2d formal echocardiogram completed overnight (on inotropic therapy) and demonstrates LVEF 60%, hyperdynamic, no valvular lesions. Infectious work-up and multiple cultures still outstanding. 05/22: renal function continues to improve. still large volume watery diarrhea. less nausea today. slightly short of breath. remains on low-dose vasopressin to maintain map > 65mmHg. platelets continue to drop, but fibrinogen stable. 05/23: renal function continues to improve. GI EGD/Colonoscopy yesterday with normal appearing tissue. diarrhea some better. still persists on vasopressors, but low dose. will check random cortisol. subjectively feels better. diuresed yesterday for rapid development of pulmonary edema with rising o2 requirement, now o2 downtrending. 05/24: LFTs starting to improve. off vasopressors. diarrhea also continues to improve. platelets improving. good auto-diuresis. wbc still elevated. 05/25: clinically improving. she is now walking around the unit. Cr baseline. saavedra removed. LFTs slightly elevated. now formed stool. ready to leave ICU. Objective Vital Signs Date Time Temp Pulse Resp B/P (MAP) Pulse Ox O2 Delivery O2 Flow Rate FiO2 05/25/17 13:11 100 21 05/25/17 12:00 Room Air 05/25/17 12:00 92 16 05/25/17 10:00 102/69 (80) 05/25/17 08:00 98.0 05/24/17 20:05 3.00 Intake and Output 05/25/17 05/25/17 05/26/17 08:00 16:00 00:00 Intake Total 530 ml 480 ml Output Total 750 ml 120 ml Balance -220 ml 360 ml Result Diagram: 05/25/17 1033 05/25/17 1033 Imaging Last Impressions Neck CT 05/20/17 1633 Signed Impressions: Service Date/Time: Saturday, May 20, 2017 17:26 - CONCLUSION: 1. Limited evaluation secondary to lack of intravenous contrast. No masses are identified 2. Nonspecific slightly enlarged nodes in group 2 on the right Isma Randhawa MD Chest CT 05/20/17 1633 Signed Impressions: Service Date/Time: Saturday, May 20, 2017 17:29 - CONCLUSION: Patchy airspace disease both lung base is without pleural effusion. Zeus Pulido MD FACR Abdomen/Pelvis CT 05/20/17 1633 Signed Impressions: Service Date/Time: Saturday, May 20, 2017 17:29 - CONCLUSION: Limited exam without oral intravenous contrast. There is no free air. Do not see evidence for an abscess.. Zeus Pulido MD FACR Chest X-Ray 05/20/17 0930 Signed Impressions: Service Date/Time: Saturday, May 20, 2017 09:45 - CONCLUSION: No acute disease. Zeus Pulido MD FACR Abdomen Ultrasound 05/20/17 0000 Signed Impressions: Service Date/Time: Saturday, May 20, 2017 12:08 - CONCLUSION: Scattered small hyperechoic nonspecific there is left lobe of the liver. There are no gallstones. CT scan with contrast may be of benefit. Zeus Pulido MD FACR Objective Remarks gen: young female, lying in bed, no distress heent: nc. at. perrl. eomi. mucous membranes moist. neck: trachea midline. no jvd. chest: unlabored. room air. cv: normal rate, regular rhythm. sinus by tele. abd: soft, nontender. nondistended. extr: warm, improved peripheral perfusion. good cap refill. generalized edema has now almost completely resolved. neuro: awake, RASS 0. sensation grossly intact. THIAGO: RUE 5/5 RLE 5/5 LUE 5/5 LLE 5/5. no myoclonus. Ambulated easily without any unsteady gait for me with the use of a walker. A/P Assessment and Plan Assessment: 21yF otherwise healthy who presented in near-extremis with multi- organ dysfunction, septic shock, DIC, severe anuric acute kidney injury, acute liver dysfunction. Clinically improved. LFTs slightly elevated above baseline. Will need GI follow up for LFTs to ensure they come back down to baseline. will touch base with ID today for final recomendations. 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 Can leave ICU. Likely can go home soon once final plans are made. Plan by systems: Neurologic: Extremity Weakness - stable. Neck pain - tylenol as needed for pain - neuro consult - unlikely to be Guillain Parkman. Respiratory: Atelectasis Pulmonary Edema - wean o2 by [place] for spo2 > 92% - aggressive pulmonary toilet. - PT/OT. - autodiuresing. will allow to continue. Cardiovascular: Septic Shock - resolved. Myocardial Stunning secondary to septic shock - resolved. - 2d echo 05/21 on dobutamine at 2.5 mcg/kg/min: LVEF 60%, no RWMA, no valvular lesions Renal: Severe oligoanuric Acute Kidney Injury - resolved. Acute intravascular volume overload - resolved - nephrology following. - daily bmp -- Strict I/Os - d/c saavedra today. - renal ultrasound 05/20: no evidence of hydronephrosis. - autodiuresing. allowing to continue. FEN/GI: Suspected infectious diarrhea Acute liver dysfunction - improving. Hyponatremia - resolved. Hypokalemia Hypocalcemia Anion-gap Metabolic Acidosis - improved. Lactic Acidosis - improved. Contraction metabolic alkalosis - resolving. Acute intravascular volume overload - resolving. - trend LFTs - GI consulted. will need outpatient GI follow up to ensure resolution of shock liver. - replace K, Ca, Mg. persistently low. - daily BMP, LFT - autodiuresing. - regular diet as tolerated. Heme/ID: Leukocytosis - improved. Probable Infectious Diarrhea Septic Shock - resolved. Thrombocytopenia - improving. Acute Coagulopathy - resolved. Disseminated Intravascular Coagulation - resolved. - hematology consult - 4T score low probability for HIT - thrombocytopenia likely combination early DIC with consumption/severe sepsis, improving. - elevated INR combination early DIC and hepatic dysfunction, now improved. - trend daily CBC and coags. - abx per ID. - vazquez cultures NGTD. - stool studies negative so far. Endocrine: Hyperglycemia of critical illness -- d/c SSI. Prophylaxis: GI Prophylaxis pepcid iv DVT Prophylaxis -- SCDs -- SQH. Lines: - piv - d/c saavedra today. Dispo: transfer out of ICU. if still improving tomorrow, could likely go home as long as follow up coordinated. Ricardo Knight MD May 25, 2017 15:22
--- NOTE | 2017-05-25 15:44 | HHI.GIFU ---
Subjective Remarks Pt sitting up in bed, family at bedside. Feels better, tolerating diet. Stool still loose but more formed. (Rachel Gan) Objective Vitals I&O Vital Signs Date Time Temp Pulse Resp B/P (MAP) Pulse Ox O2 Delivery O2 Flow Rate FiO2 05/25/17 13:11 100 21 05/25/17 12:00 Room Air 05/25/17 12:00 92 16 98 05/25/17 10:00 64 18 102/69 (80) 98 05/25/17 08:00 98 Room Air 05/25/17 08:00 98.0 58 16 107/59 (75) 98 05/25/17 06:00 57 05/25/17 04:15 64 05/25/17 04:15 98.1 64 22 102/51 (68) 97 05/25/17 02:00 72 34 114/69 (84) 97 05/25/17 02:00 72 05/25/17 01:10 Room Air 97 05/25/17 00:17 77 05/25/17 00:08 98.4 74 34 104/69 (81) 97 05/24/17 22:30 98.2 68 26 102/59 (73) 97 05/24/17 22:00 75 05/24/17 20:31 74 05/24/17 20:30 98.1 72 28 101/64 (76) 98 05/24/17 20:05 Nasal Cannula 3.00 98 05/24/17 18:00 98.2 72 25 104/60 (75) 97 05/24/17 18:00 72 05/24/17 17:40 98 Nasal Cannula 2.00 05/24/17 16:00 98.2 83 26 101/65 (77) 97 05/24/17 16:00 75 I/O 05/24/17 05/24/17 05/24/17 05/25/17 05/25/17 05/25/17 07:00 15:00 23:00 07:00 15:00 23:00 Intake Total 620 ml 2415 ml 530 ml 480 ml Output Total 2850 ml 1225 ml 750 ml 120 ml Balance -2230 ml 1190 ml -220 ml 360 ml Intake Oral 300 ml 1920 ml 320 ml 480 ml IV Total 320 ml 495 ml 210 ml Output Urine Total 2800 ml 1100 ml 750 ml 120 ml Stool Total 50 ml 125 ml # Voids 1 # Bowel Movements 1 Laboratory Laboratory Tests Test 05/24/17 19:00 05/25/17 10:33 Potassium Level 3.9 3.5 White Blood Count 13.8 Red Blood Count 3.51 Hemoglobin 10.5 Hematocrit 31.7 Mean Corpuscular Volume 90.4 Mean Corpuscular Hemoglobin 29.9 Mean Corpuscular Hemoglobin Concent 33.1 Red Cell Distribution Width 13.7 Platelet Count 101 Mean Platelet Volume 10.8 Prothrombin Time 12.1 Prothromb Time International Ratio 1.1 Activated Partial Thromboplast Time 24.2 Blood Urea Nitrogen 19 Creatinine 0.77 Random Glucose 109 Total Protein 5.7 Albumin 2.4 Calcium Level 8.1 Alkaline Phosphatase 87 Aspartate Amino Transf (AST/SGOT) 73 Alanine Aminotransferase (ALT/SGPT) 52 Total Bilirubin 1.1 Direct Bilirubin 0.7 Sodium Level 141 Chloride Level 107 Carbon Dioxide Level 24.7 Anion Gap 9 Estimat Glomerular Filtration Rate 117 Indirect Bilirubin 0.4 Date/Time Source Procedure Growth Status 05/20/17 16:50 Blood Peripheral Aerobic Blood Culture - Final NO GROWTH IN 5 DAYS Complete 05/20/17 16:50 Blood Peripheral Anaerobic Blood Culture - Final NO GROWTH IN 5 DAYS Complete 05/24/17 13:30 Stool Stool Cryptosporidium Exam Pending Resulted 05/24/17 13:30 Stool Stool Stool Pus (KEYANA) - Final NO WBC'S SEEN Resulted 05/24/17 13:30 Stool Stool Giardia Antigen (KEYANA) Pending Resulted 05/20/17 09:40 Throat Group A Streptococcus Screen - Final NO GP A BETA STREP ISOLATED. Complete 05/20/17 14:00 Urine Random Urine Urine Culture - Final NO GROWTH IN 48 HOURS. Complete Imaging Last Impressions Cholangiopancreatography MRI 05/23/17 0000 Signed Impressions: Service Date/Time: May 13:17 - CONCLUSION: 1. No evidence of gallstones or biliary tract obstruction. 2. Mild diffuse enlargement of the liver. Derrick Raman MD Chest X-Ray 05/22/17 0000 Signed Impressions: Service Date/Time: Monday, May 22, 2017 07:05 - CONCLUSION: 1. Rapid development of extensive airspace disease which may represent pulmonary edema considering the patient's history. 2. Cardiomegaly Paul Malone MD Neck CT 05/20/17 1633 Signed Impressions: Service Date/Time: Saturday, May 20, 2017 17:26 - CONCLUSION: 1. Limited evaluation secondary to lack of intravenous contrast. No masses are identified 2. Nonspecific slightly enlarged nodes in group 2 on the right Isma Randhawa MD Chest CT 05/20/17 1633 Signed Impressions: Service Date/Time: Saturday, May 20, 2017 17:29 - CONCLUSION: Patchy airspace disease both lung base is without pleural effusion. Zeus Pulido MD FACR Abdomen/Pelvis CT 05/20/17 1633 Signed Impressions: Service Date/Time: Saturday, May 20, 2017 17:29 - CONCLUSION: Limited exam without oral intravenous contrast. There is no free air. Do not see evidence for an abscess.. Zeus Pulido MD FACR Abdomen Ultrasound 05/20/17 0000 Signed Impressions: Service Date/Time: Saturday, May 20, 2017 12:08 - CONCLUSION: Scattered small hyperechoic nonspecific there is left lobe of the liver. There are no gallstones. CT scan with contrast may be of benefit. Zeus Pulido MD FACR Physical Exam HEENT: Normocephalic; atraumatic; no jaundice. CHEST: CTA CARDIAC: RRR ABDOMEN: Soft, nondistended, nontender; no hepatosplenomegaly; bowel sounds are present in all four quadrants. EXTREMITIES: No clubbing, cyanosis, or edema. SKIN: Normal; no rash; no jaundice. DIGITAL PHOTOGRAPHER: No focal deficits; alert and oriented times three. (Rachel Gan [facility]) Assessment and Plan Plan ASSESSMENT: - N/V/D. Sudden onset 1wk ago. CT Scan abdomen and pelvis (05/20/17)---> Limited exam without oral intravenous contrast, there is no free air. Do not see evidence for an abscess. One contact with flu like symptoms, no recent travel, suspicious food. Stool studies were sent and negative for enteric pathogens, rotavirus, Cyclospora, wbc, clostridium difficile. Cryptosporidium and giardia neg. Hepatitis panel negative, Monscreen negative, HIV negative, RPR nonreactive, Past mycoplasma pneumonia infection. S/P EGD/Colonoscopy 1. Duodenum normal-biopsy from second portion and duodenal bulb gastritis antrum-biopsy gastric body-biopsy esophagitis distal esophagus-biopsy 2. Retroflexed views revealed no abnormalities 1. Normal colon-random biopsies from ascending, transverse, descending, rectum, sigmoid 2. Retroflexed views revealed internal hemorrhoids 3. Retroflexed views revealed small internal hemorrhoids 4. Revealed no abnormalities of the rectum. Flagyl per ID. On asacol for possible post infectious colitis following suspected viral gastroenteritis. gastric bx neg stain for h pylori but per comment some features d/w helicobacter induced gastritis. h pylori stool antigen still pending. colon biopsies collagenous colitis. Clinically improving - Elevated LFTs. MRCP (05/23/17)----> No evidence of gallstones or biliary tract obstrution. Mild diffuse enlargement of the liver. LFTs improving, T. Bili 1.8, AST 77, ALT 50, Alk Phosph 91. - Sepsis. Flu negative, BCx no growth 3 day. Stool studies negative so far. Abx per ID. ?viral enteritis with pos infection colitis - Thrombocytopenia/Coagulopathy. Hematology following, likely related to sepsis. - HANSEL. Creat improving 05/25/17 - collagenous colitis, poss h pylori. H pylori stool ag still pending. diarrhea seems to be improving with asacol. PLAN: - NELSY - await h pylori stool antigen - Cont. Asacol-HD - Monitor labs - Monitor stool output - supportive care - This pt seen by myself and Dr Conde and this note is written on his behalf (Rachel Gan) Discharge Planning Agree with the assessment and plan as above. Will follow up with you. (Christine Conde MD) Rachel Gan May 25, 2017 15:44 Christine Conde MD May 25, 2017 16:23
[2017-05-26] MEDS: metroNIDAZOLE 500 MG INJ 100 ML IV SCH ×6 (00:25→16:04)
[2017-05-26] MEDS: HEPARIN SODIUM - SQ 10,000 UNITS/ML VIAL SQ SCH ×4 (00:25→12:59)
[2017-05-26] MEDS: CHLORHEXIDINE GLUCONATE 2 % 1 PACK (2 CLOTHS) TOP SCH ×2 (00:25)
[2017-05-26] MEDS: ONDANSETRON HCL 4 MG/2 ML VIAL IV PUSH PRN ×2 (00:26)
[2017-05-26 00:46] VITALS: BP 111/68; PULSE 81; RESP 16; TEMP 96.8; O2SAT 96
[2017-05-26 03:05] LABS: HEMATOCRIT 30.9 % (35.0-46.0); MEAN CELL VOLUME 90.4 FL (80.0-100.0); MEAN CORPUSCULAR HEMOGLOBIN 29.3 PG (27.0-34.0); MEAN CORPUSCULAR HGB CONC 32.4 % (32.0-36.0); MEAN PLATELET VOLUME 10.6 FL (7.0-11.0); PLATELET COUNT 140 TH/MM3 (150-450); RED BLOOD COUNT 3.41 MIL/MM3 (4.00-5.30); RED CELL DISTRIBUTION WIDTH 13.5 % (11.6-17.2); WHITE BLOOD COUNT 13.3 TH/MM3 (4.0-11.0)
[2017-05-26 03:14] LABS: INTERNATIONAL NORMALIZED RATIO 1.1 RATIO; PROTHROMBIN TIME - PATIENT 11.9 SEC (9.8-11.6)
[2017-05-26 03:25] LABS: ALBUMIN 2.6 GM/DL (3.4-5.0); BICARBONATE 24.2 MEQ/L (21.0-32.0); CALCIUM 7.9 MG/DL (8.5-10.1); CREATININE 0.69 MG/DL (0.50-1.00)
[2017-05-26 03:28] LABS: DIRECT BILIRUBIN ADULT 0.6 MG/DL (0.0-0.2); INDIRECT BILIRUBIN 0.3 MG/DL (0.0-0.8); TOTAL BILIRUBIN ADULT 0.9 MG/DL (0.2-1.0); TOTAL PROTEIN 6.1 GM/DL (6.4-8.2)
[2017-05-26] MEDS: MESALAMINE HD 800 MG DELAYED RELEASE TAB PO SCH ×6 (04:56→20:27)
[2017-05-26 08:00] VITALS: BP 109/71; PULSE 88; RESP 16; TEMP 97.7; O2SAT 98
[2017-05-26 10:20] VITALS: O2SAT 98
[2017-05-26 12:00] VITALS: BP 113/62; PULSE 59; RESP 16; TEMP 97; O2SAT 100
--- NOTE | 2017-05-26 14:50 | HHI.GIFU ---
Subjective Remarks Resting in bed. Friends at bedside. Tolerating diet. (Adrienne Berumen) Objective Vitals I&O Vital Signs Date Time Temp Pulse Resp B/P (MAP) Pulse Ox O2 Delivery O2 Flow Rate FiO2 05/26/17 12:00 97.0 59 16 113/62 (79) 100 05/26/17 10:20 98 21 05/26/17 08:20 98 Room Air 05/26/17 08:00 97.7 88 16 109/71 (84) 98 05/26/17 00:46 96.8 81 16 111/68 (82) 96 05/25/17 20:00 97.3 80 16 119/65 (83) 96 05/25/17 16:00 97.3 66 18 120/76 (91) 99 I/O 05/25/17 05/25/17 05/25/17 05/26/17 05/26/17 05/26/17 07:00 15:00 23:00 07:00 15:00 23:00 Intake Total 530 ml 480 ml 480 ml Output Total 750 ml 120 ml 300 ml Balance -220 ml 360 ml 480 ml -300 ml Intake Oral 320 ml 480 ml 480 ml IV Total 210 ml Output Urine Total 750 ml 120 ml 300 ml # Voids 1 # Bowel Movements 1 Laboratory Laboratory Tests Test 05/26/17 01:30 White Blood Count 13.3 Red Blood Count 3.41 Hemoglobin 10.0 Hematocrit 30.9 Mean Corpuscular Volume 90.4 Mean Corpuscular Hemoglobin 29.3 Mean Corpuscular Hemoglobin Concent 32.4 Red Cell Distribution Width 13.5 Platelet Count 140 Mean Platelet Volume 10.6 Prothrombin Time 11.9 Prothromb Time International Ratio 1.1 Activated Partial Thromboplast Time 36.6 Fibrinogen 357 Blood Urea Nitrogen 14 Creatinine 0.69 Random Glucose 91 Total Protein 6.1 Albumin 2.6 Calcium Level 7.9 Alkaline Phosphatase 84 Aspartate Amino Transf (AST/SGOT) 68 Alanine Aminotransferase (ALT/SGPT) 53 Total Bilirubin 0.9 Direct Bilirubin 0.6 Sodium Level 140 Potassium Level 3.5 Chloride Level 107 Carbon Dioxide Level 24.2 Anion Gap 9 Estimat Glomerular Filtration Rate 133 Indirect Bilirubin 0.3 Date/Time Source Procedure Growth Status 05/20/17 16:50 Blood Peripheral Aerobic Blood Culture - Final NO GROWTH IN 5 DAYS Complete 05/20/17 16:50 Blood Peripheral Anaerobic Blood Culture - Final NO GROWTH IN 5 DAYS Complete 05/24/17 13:30 Stool Stool Cryptosporidium Exam Pending Resulted 05/24/17 13:30 Stool Stool Stool Pus (KEYANA) - Final NO WBC'S SEEN Resulted 05/24/17 13:30 Stool Stool Giardia Antigen (KEYANA) Pending Resulted 05/20/17 09:40 Throat Group A Streptococcus Screen - Final NO GP A BETA STREP ISOLATED. Complete 05/20/17 14:00 Urine Random Urine Urine Culture - Final NO GROWTH IN 48 HOURS. Complete Imaging Last Impressions Cholangiopancreatography MRI 05/23/17 0000 Signed Impressions: Service Date/Time: May 13:17 - CONCLUSION: 1. No evidence of gallstones or biliary tract obstruction. 2. Mild diffuse enlargement of the liver. Derrick Raman MD Chest X-Ray 05/22/17 0000 Signed Impressions: Service Date/Time: Monday, May 22, 2017 07:05 - CONCLUSION: 1. Rapid development of extensive airspace disease which may represent pulmonary edema considering the patient's history. 2. Cardiomegaly Paul Malone MD Neck CT 05/20/17 1633 Signed Impressions: Service Date/Time: Saturday, May 20, 2017 17:26 - CONCLUSION: 1. Limited evaluation secondary to lack of intravenous contrast. No masses are identified 2. Nonspecific slightly enlarged nodes in group 2 on the right Isma Randhawa MD Chest CT 05/20/17 1633 Signed Impressions: Service Date/Time: Saturday, May 20, 2017 17:29 - CONCLUSION: Patchy airspace disease both lung base is without pleural effusion. Zeus Pulido MD FACR Abdomen/Pelvis CT 05/20/17 1633 Signed Impressions: Service Date/Time: Saturday, May 20, 2017 17:29 - CONCLUSION: Limited exam without oral intravenous contrast. There is no free air. Do not see evidence for an abscess.. Zeus Pulido MD FACR Abdomen Ultrasound 05/20/17 0000 Signed Impressions: Service Date/Time: Saturday, May 20, 2017 12:08 - CONCLUSION: Scattered small hyperechoic nonspecific there is left lobe of the liver. There are no gallstones. CT scan with contrast may be of benefit. Zeus Pulido MD FACR Physical Exam HEENT: Normocephalic; atraumatic; no jaundice. CHEST: CTA CARDIAC: RRR ABDOMEN: Soft, nondistended, nontender; no hepatosplenomegaly; bowel sounds are present in all four quadrants. EXTREMITIES: No clubbing, cyanosis, or edema. SKIN: Normal; no rash; no jaundice. CERTIFIED REGISTERED NURSE ANESTHETIST: No focal deficits; alert and oriented times three. (Adrienne Berumen) Assessment and Plan Plan ASSESSMENT: - N/V/D. Sudden onset 1wk ago. CT Scan abdomen and pelvis (05/20/17)---> Limited exam without oral intravenous contrast, there is no free air. Do not see evidence for an abscess. One contact with flu like symptoms, no recent travel, suspicious food. Stool studies were sent and negative for enteric pathogens, rotavirus, Cyclospora, wbc, clostridium difficile. Cryptosporidium and giardia neg. Hepatitis panel negative, Monscreen negative, HIV negative, RPR nonreactive, Past mycoplasma pneumonia infection. S/P EGD/Colonoscopy 1. Duodenum normal-biopsy from second portion and duodenal bulb gastritis antrum-biopsy gastric body-biopsy esophagitis distal esophagus-biopsy 2. Retroflexed views revealed no abnormalities 1. Normal colon-random biopsies from ascending, transverse, descending, rectum, sigmoid 2. Retroflexed views revealed internal hemorrhoids 3. Retroflexed views revealed small internal hemorrhoids 4. Revealed no abnormalities of the rectum. Flagyl per ID. On Asacol for possible post infectious colitis following suspected viral gastroenteritis. gastric bx neg stain for h pylori but per comment some features d/w Helicobacter induced gastritis. Colon biopsies collagenous colitis. Clinically improving. Stool H. pylori Ag positive. - Elevated LFTs. MRCP (05/23/17)----> No evidence of gallstones or biliary tract obstruction. Mild diffuse enlargement of the liver. LFTs improving, T. Bili 0.9, AST 68, ALT 53, Alk Phosph 84. - Sepsis. Flu negative, BCx no growth 5 day. Stool studies negative. Abx per ID. ?viral enteritis with pos infection colitis - Thrombocytopenia/Coagulopathy. Hematology following, likely related to sepsis. - HANSEL. Creat improving PLAN: - Stool H. Pylori Ag positive - Start Flagyl+Clarithromycin+PPI - NELSY - Cont. Asacol-HD - Monitor labs - Monitor stool output - Supportive care - Further recommendations to follow based on results of above. Patient seen and examined by Dr. Conde and myself and this note is written on his behalf. (Adrienne Berumen) Physician Comments As above, will start triple therapy for HP, other cultures and work up still pending. Will follow up with you. (Christine Conde MD) Adrienne Berumen May 26, 2017 14:50 Christine Conde MD May 26, 2017 15:13
--- NOTE | 2017-05-26 15:10 | HHI.PR ---
Subjective Remarks Denies diarrhea tolerating diet denies fevers/chills Objective Vitals Vital Signs Date Time Temp Pulse Resp B/P (MAP) Pulse Ox O2 Delivery O2 Flow Rate FiO2 05/26/17 12:00 97.0 59 16 113/62 (79) 100 05/26/17 10:20 98 21 05/26/17 08:20 98 Room Air 05/26/17 08:00 97.7 88 16 109/71 (84) 98 05/26/17 00:46 96.8 81 16 111/68 (82) 96 05/25/17 20:00 97.3 80 16 119/65 (83) 96 05/25/17 16:00 97.3 66 18 120/76 (91) 99 I/O 05/25/17 05/25/17 05/25/17 05/26/17 05/26/17 05/26/17 07:00 15:00 23:00 07:00 15:00 23:00 Intake Total 530 ml 480 ml 480 ml Output Total 750 ml 120 ml 300 ml Balance -220 ml 360 ml 480 ml -300 ml Intake Oral 320 ml 480 ml 480 ml IV Total 210 ml Output Urine Total 750 ml 120 ml 300 ml # Voids 1 # Bowel Movements 1 Result Diagram: 05/26/17 0130 05/26/17 0130 Imaging Last Impressions Cholangiopancreatography MRI 05/23/17 0000 Signed Impressions: Service Date/Time: May 13:17 - CONCLUSION: 1. No evidence of gallstones or biliary tract obstruction. 2. Mild diffuse enlargement of the liver. Derrick Raman MD Chest X-Ray 05/22/17 0000 Signed Impressions: Service Date/Time: Monday, May 22, 2017 07:05 - CONCLUSION: 1. Rapid development of extensive airspace disease which may represent pulmonary edema considering the patient's history. 2. Cardiomegaly Paul Malone MD Neck CT 05/20/171632 Signed Impressions: Service Date/Time: Saturday, May 20, 2017 17:26 - CONCLUSION: 1. Limited evaluation secondary to lack of intravenous contrast. No masses are identified 2. Nonspecific slightly enlarged nodes in group 2 on the right Isma Randhawa MD Chest CT 10/30/17 1633 Signed Impressions: Service Date/Time: Saturday, May 20, 2017 17:29 - CONCLUSION: Patchy airspace disease both lung base is without pleural effusion. Zeus Pulido MD FACR Abdomen/Pelvis CT 05/20/17 1633 Signed Impressions: Service Date/Time: Saturday, May 20, 2017 17:29 - CONCLUSION: Limited exam without oral intravenous contrast. There is no free air. Do not see evidence for an abscess.. Zeus Pulido MD FACR Abdomen Ultrasound 05/20/17 0000 Signed Impressions: Service Date/Time: Saturday, May 20, 2017 12:08 - CONCLUSION: Scattered small hyperechoic nonspecific there is left lobe of the liver. There are no gallstones. CT scan with contrast may be of benefit. Zeus Pulido MD FACR Objective Remarks AAOx3, nad, lying in bed Clear lungs BL S1S2 RRR, no MRG abdomen is soft, nt,nd no edema in Bl lower extremities Medications and IVs Current Medications Medications (Trade) Dose Ordered Sig/Juju Route Start Time Stop Time Status Last Admin (Zofran Inj) 4 mg Q6H PRN IV PUSH 05/20/17 12:00 05/26/17 00:26 (Duoneb Neb) 1 ampule Q2HR NEB PRN INH 05/20/17 12:00 (Heparin Inj) 5,000 units Q12H SQ 05/20/17 13:00 05/26/17 12:59 Miscellaneous Information 1 Q361D XX 05/20/17 12:00 05/20/17 20:24 (Chlorhexidine 2% Cloth) Taper DAILY@04 TOP 05/21/17 04:00 05/17/18 03:59 (Chlorhexidine 2% Cloth) 3 pack UNSCH PRN TOP 05/20/17 12:00 Metronidazole 100 ml @ 100 mls/hr Q8H IV 05/20/17 16:00 05/26/17 08:05 (Asacol Hd ) 1,600 mg Q8HR PO 05/22/17 14:00 05/26/17 12:59 (Benadryl Inj) 25 mg Q4H PRN IV PUSH 05/23/17 14:00 05/23/17 14:27 (Flagyl) 500 mg BID PO 05/26/17 21:00 (Biaxin) 500 mg Q12HR PO 05/26/17 21:00 (Protonix) 40 mg BID PO 05/26/17 21:00 A/P Problem List: (1) Septic shock ICD Code: A41.9 - Sepsis, unspecified organism; R65.21 - Severe sepsis with septic shock Status: Resolved (2) Myocardial stunning ICD Code: I51.5 - Myocardial degeneration Status: Resolved (3) Pulmonary edema ICD Code: J81.1 - Chronic pulmonary edema Status: Resolved (4) Atelectasis ICD Code: J98.11 - Atelectasis Status: Resolved (5) HANSEL (acute kidney injury) ICD Code: N17.9 - Acute kidney failure, unspecified Status: Resolved (6) Acute gastroenteritis ICD Code: K52.9 - Noninfective gastroenteritis and colitis, unspecified Status: Resolved (7) Electrolyte abnormality ICD Code: E87.8 - Other disorders of electrolyte and fluid balance, not elsewhere classified Status: Resolved (8) Lactic acidosis ICD Code: E87.2 - Acidosis Assessment and Plan Assessment: 21yF otherwise healthy who presented in near-extremis with multi- organ dysfunction, septic shock, DIC, severe anuric acute kidney injury, acute liver dysfunction. Clinically improved. LFTs slightly elevated above baseline. Will need GI follow up for LFTs to ensure they come back down to baseline. will touch base with ID today for final recomendations. 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 Can leave ICU. Likely can go home soon once final plans are made: Neurologic: 1. Generalized weakness - PT recommends rehab. 05/26 case discussed with case management specialist. Will have [facility] evaluate patient. 2. Atelectasis 3. Pulmonary Edema - resolved - Continue supplemental oxygen to keep oxygen saturation more than 92%. - Patient with auto diuresis which seems to have slowed down. 4. Septic Shock - resolved. 5. Myocardial Stunning secondary to septic shock - resolved. - 2d echo 05/21 on dobutamine at 2.5 mcg/kg/min: LVEF 60%, no RWMA, no valvular lesions Severe oligoanuric Acute Kidney Injury - resolved. Acute intravascular volume overload - resolved - nephrology following. - daily bmp -- Strict I/Os - d/c quentin today. - renal ultrasound 10/30: no evidence of hydronephrosis. - autodiuresing. allowing to continue. Suspected infectious diarrhea Acute liver dysfunction - improving. Hyponatremia - resolved. Hypokalemia Hypocalcemia Anion-gap Metabolic Acidosis - improved. Lactic Acidosis - improved. Contraction metabolic alkalosis - resolving. Acute intravascular volume overload - resolving. - trend LFTs - GI consulted. will need outpatient GI follow up to ensure resolution of shock liver. - replace K, Ca, Mg. persistently low. - daily BMP, LFT - autodiuresing. - regular diet as tolerated. Leukocytosis - wbc slightly improved Probable Infectious Diarrhea Septic Shock - resolved. Thrombocytopenia - improving. Acute Coagulopathy - resolved. Disseminated Intravascular Coagulation - resolved. - hematology consult - 4T score low probability for HIT - thrombocytopenia likely combination early DIC with consumption/severe sepsis, improving. - elevated INR combination early DIC and hepatic dysfunction, now improved. - trend daily CBC and coags. - abx per ID. - vazquez cultures NGTD. - stool studies negative so far. Hyperglycemia of critical illness -- d/c SSI. Blood sugars now stable. Prophylaxis: GI Prophylaxis pepcid iv DVT Prophylaxis -- SCDs -- SQH. Discharge Planning Will [facility] evaluate patient. Petar Johnson MD May 26, 2017 15:10
[2017-05-26 16:00] VITALS: BP 110/62; PULSE 69; RESP 16; TEMP 97.9; O2SAT 98
[2017-05-26 20:00] VITALS: BP 112/73; PULSE 81; RESP 18; TEMP 98.4; O2SAT 100
[2017-05-26] MEDS: CLARITHROMYCIN 500 MG TAB PO SCH ×2 (20:26)
[2017-05-26] MEDS: metroNIDAZOLE 500 MG TAB PO SCH ×2 (20:27)
[2017-05-26] MEDS: PANTOPRAZOLE SOD 20 MG DELAYED RELEASE TAB PO SCH ×2 (20:27)
[2017-05-27] VITALS: BP 108/61; PULSE 78; RESP 16; TEMP 97.6; O2SAT 98
[2017-05-27] MEDS: metroNIDAZOLE 500 MG INJ 100 ML IV SCH ×4 (00:38→08:00)
[2017-05-27] MEDS: HEPARIN SODIUM - SQ 10,000 UNITS/ML VIAL SQ SCH ×4 (00:39→13:24)
[2017-05-27] MEDS: CHLORHEXIDINE GLUCONATE 2 % 1 PACK (2 CLOTHS) TOP SCH ×2 (00:39)
[2017-05-27] MEDS: MESALAMINE HD 800 MG DELAYED RELEASE TAB PO SCH ×4 (04:51→15:37)
--- NOTE | 2017-05-27 07:13 | HHI.PR ---
Addendum to Inpatient Note Addendum Reason: Additional Documentation Additional Information Chart reviewed. Case d.w : we agree this is likely a viral gastroenteritis ? Enterovirus D68. considering sending specimens to [place]. Off antibiotics and doing well. Will sign off please call back if any change in clinical condition or questions. Krista Chakraborty MD May 27, 2017 07:13
--- NOTE | 2017-05-27 07:13 | HHI.PR ---
Addendum to Inpatient Note Addendum Reason: Additional Documentation Additional Information Chart reviewed. Case d.w : we agree this is likely a viral gastroenteritis ? Enterovirus D68. considering sending specimens to [place]. Off antibiotics and doing well. Will sign off please call back if any change in clinical condition or questions. Krista Chakraborty MD May 27, 2017 07:13
--- NOTE | 2017-05-27 07:13 | HHI.PR ---
Addendum to Inpatient Note Addendum Reason: Additional Documentation Additional Information Chart reviewed. Case d.w : we agree this is likely a viral gastroenteritis ? Enterovirus D68. considering sending specimens to [place]. Off antibiotics and doing well. Will sign off please call back if any change in clinical condition or questions. Krista Chakraborty MD May 27, 2017 07:13
[2017-05-27 08:00] VITALS: BP 115/68; PULSE 64; RESP 18; TEMP 97.6; O2SAT 99
[2017-05-27] MEDS: PANTOPRAZOLE SOD 20 MG DELAYED RELEASE TAB PO SCH ×2 (08:17)
[2017-05-27] MEDS: metroNIDAZOLE 500 MG TAB PO SCH ×2 (08:17)
[2017-05-27] MEDS: CLARITHROMYCIN 500 MG TAB PO SCH ×2 (08:17)
[2017-05-27 09:18] LABS: AUTOMATED NEUTROPHIL # 3.4 TH/MM3 (1.8-7.7); BASOPHIL # 0.1 TH/MM3 (0-0.2); BASOPHIL % 0.7 % (0.0-2.0); EOSINOPHIL # 0.1 TH/MM3 (0-0.4); EOSINOPHIL % 0.8 % (0.0-4.0); HEMATOCRIT 33.5 % (35.0-46.0); HEMOGLOBIN 11.2 GM/DL (11.6-15.3); LYMPH % 45.5 % (9.0-44.0); LYMPHOCYTE # 3.6 TH/MM3 (1.0-4.8); MEAN CELL VOLUME 90.5 FL (80.0-100.0); MEAN CORPUSCULAR HEMOGLOBIN 30.2 PG (27.0-34.0); MEAN CORPUSCULAR HGB CONC 33.4 % (32.0-36.0); MEAN PLATELET VOLUME 10.3 FL (7.0-11.0); MONO % 9.5 % (0.0-8.0); MONOCYTE # 0.7 TH/MM3 (0-0.9); NEUT % 43.5 % (16.0-70.0); PLATELET COUNT 200 TH/MM3 (150-450); RED BLOOD COUNT 3.71 MIL/MM3 (4.00-5.30); RED CELL DISTRIBUTION WIDTH 13.7 % (11.6-17.2); WHITE BLOOD COUNT 7.8 TH/MM3 (4.0-11.0)
[2017-05-27 09:33] LABS: ALBUMIN 2.7 GM/DL (3.4-5.0); BICARBONATE 24.1 MEQ/L (21.0-32.0); CALCIUM 8.1 MG/DL (8.5-10.1); CREATININE 0.69 MG/DL (0.50-1.00); MAGNESIUM 1.7 MG/DL (1.5-2.5)
[2017-05-27 09:37] LABS: DIRECT BILIRUBIN ADULT 0.5 MG/DL (0.0-0.2); INDIRECT BILIRUBIN 0.4 MG/DL (0.0-0.8); PHOSPHORUS 3.1 MG/DL (2.5-4.9); TOTAL BILIRUBIN ADULT 0.9 MG/DL (0.2-1.0)
[2017-05-27 10:07] LABS: BANDS 7 % (0-6); BASOPHILS 1 % (0-2); LYMPHOCYTES 41 % (9-44); METAMYELOCYTES 9 % (0-1); MONOCYTES 7 % (0-8); MYELOCYTES 4 % (0-0); POLYS (SEG NEUTROPHILS) 31 % (16-70)
[2017-05-27 10:08] LABS: TOXIC GRANULATION 1+ (NORMAL)
--- NOTE | 2017-05-27 10:15 | PD.ONC.PN ---
Subjective Subjective Remarks Afebrile overnight. Patient resting in bed in nad. No complaints. Feeling good today. No bleeding. Objective Data Date Time Temp Pulse Resp B/P (MAP) Pulse Ox O2 Delivery O2 Flow Rate FiO2 05/27/17 08:00 97.6 64 18 115/68 (84) 99 05/27/17 00:00 97.6 78 16 108/61 (77) 98 05/26/17 20:00 98.4 81 18 112/73 (86) 100 05/26/17 16:00 97.9 69 16 110/62 (78) 98 05/26/17 12:00 97.0 59 16 113/62 (79) 100 05/26/17 10:20 98 21 05/27/17 05/27/17 05/27/17 07:00 15:00 23:00 Output Total 200 ml Balance -200 ml Result Diagram: 05/27/17 0750 05/27/17 0750 Laboratory Results Laboratory Tests Test 05/27/17 07:50 White Blood Count 7.8 TH/MM3 Red Blood Count 3.71 MIL/MM3 Hemoglobin 11.2 GM/DL Hematocrit 33.5 % Mean Corpuscular Volume 90.5 FL Mean Corpuscular Hemoglobin 30.2 PG Mean Corpuscular Hemoglobin Concent 33.4 % Red Cell Distribution Width 13.7 % Platelet Count 200 TH/MM3 Mean Platelet Volume 10.3 FL Neutrophils (%) (Auto) 43.5 % Lymphocytes (%) (Auto) 45.5 % Monocytes (%) (Auto) 9.5 % Eosinophils (%) (Auto) 0.8 % Basophils (%) (Auto) 0.7 % Neutrophils # (Auto) 3.4 TH/MM3 Lymphocytes # (Auto) 3.6 TH/MM3 Monocytes # (Auto) 0.7 TH/MM3 Eosinophils # (Auto) 0.1 TH/MM3 Basophils # (Auto) 0.1 TH/MM3 CBC Comment AUTO DIFF Differential Total Cells Counted 100 Neutrophils % (Manual) 31 % Band Neutrophils % 7 % Lymphocytes % 41 % Monocytes % 7 % Basophils % 1 % Neutrophils # (Manual) 4.0 TH/MM3 Metamyelocytes 9 % Myelocytes 4 % Differential Comment FINAL DIFF MANUAL Toxic Granulation 1+ Platelet Estimate NORMAL Platelet Morphology Comment ENLARGED Blood Urea Nitrogen 13 MG/DL Creatinine 0.69 MG/DL Random Glucose 89 MG/DL Total Protein 6.0 GM/DL Albumin 2.7 GM/DL Calcium Level 8.1 MG/DL Phosphorus Level 3.1 MG/DL Magnesium Level 1.7 MG/DL Alkaline Phosphatase 72 U/L Aspartate Amino Transf (AST/SGOT) 50 U/L Alanine Aminotransferase (ALT/SGPT) 45 U/L Total Bilirubin 0.9 MG/DL Direct Bilirubin 0.5 MG/DL Sodium Level 139 MEQ/L Potassium Level 3.7 MEQ/L Chloride Level 105 MEQ/L Carbon Dioxide Level 24.1 MEQ/L Anion Gap 10 MEQ/L Estimat Glomerular Filtration Rate 133 ML/MIN Indirect Bilirubin 0.4 MG/DL Culture Results Microbiology Date/Time Source Procedure Growth Status 05/24/17 13:30 Stool Stool Cryptosporidium Exam Pending Resulted 05/24/17 13:30 Stool Stool Stool Pus (KEYANA) - Final NO WBC'S SEEN Resulted 05/24/17 13:30 Stool Stool Giardia Antigen (KEYANA) Pending Resulted Administered Medications Medications (Trade) Dose Ordered Sig/Juju Route PRN Reason Start Time Stop Time Status Last Admin Dose Admin Ondansetron HCl (Zofran Inj) 4 mg Q6H PRN IV PUSH NAUSEA OR VOMITING 05/20/17 12:00 05/26/17 00:26 Heparin Sodium (Porcine) (Heparin Inj) 5,000 units Q12H SQ 05/20/17 13:00 05/27/17 00:39 Miscellaneous Information 1 Q361D XX 05/20/17 12:00 05/20/17 20:24 Metronidazole 100 ml @ 100 mls/hr Q8H IV 05/20/17 16:00 05/27/17 00:38 Mesalamine (Asacol Hd Dr) 1,600 mg Q8HR PO 05/22/17 14:00 05/27/17 04:51 Diphenhydramine HCl (Benadryl Inj) 25 mg Q4H PRN IV PUSH Hives 05/23/17 14:00 05/23/17 14:27 Metronidazole (Flagyl) 500 mg BID PO 05/26/17 21:00 05/27/17 08:17 Clarithromycin (Biaxin) 500 mg Q12HR PO 05/26/17 21:00 05/27/17 08:17 Pantoprazole Sodium (Protonix) 40 mg BID PO 05/26/17 21:00 05/27/17 08:17 Objective Remarks GENERAL: Young woman, lying in bed in nad. SKIN: Warm and dry. HEAD: Normocephalic. EYES: No injection or drainage. NECK: Supple, trachea midline. CARDIOVASCULAR: Regular rate and rhythm RESPIRATORY: Breath sounds equal bilaterally. No accessory muscle use. GASTROINTESTINAL: Abdomen soft, non-tender, nondistended. EXTREMITIES: No cyanosis NEUROLOGICAL: awake and alert, normal speech. Assessment/Plan Problem List: (1) Thrombocytopenia ICD Codes: D69.6 - Thrombocytopenia, unspecified Plan: 05/27: platelets recovered, hematology will sign off. please call or reconsult if needed. --due to sepsis and possible DIC. --No evidence of microangiopathic hemolytic anemia. --peripheral smear-->No evidence of schistocytes noted. Assessment 21y/o female admitted with septic shock. Hematology consulted for thrombocytopenia. Attending Statement no c/o offer smiling as she is going home. mom at bedside Plat are now normal. sign off available prn d/w pt and mom. The exam, history, and the medical decision-making described in the above note were completed with the assistance of the mid-level provider. I reviewed and agree with the findings presented. I attest that I had a [id number] encounter with the patient on the same day, and personally performed and documented my assessment and findings in the medical record. Jenny Alberto May 27, 2017 10:15 Raghav Vieyra MD May 27, 2017 18:19
[2017-05-27 11:52] LABS: ENDOMYSIAL AB SCREEN ND (NEGATIVE); ENDOMYSIAL AB TITER ND (<1:5)
[2017-05-27 12:00] VITALS: BP 114/68; PULSE 69; RESP 16; TEMP 97; O2SAT 99
[2017-05-27] MEDS ORDERED: metroNIDAZOLE 500 MG TAB PO SCH ×4 (14:00→21:00)
[2017-05-27 14:04] LABS: INTERNATIONAL NORMALIZED RATIO 1.1 RATIO
[2017-05-27] MEDS ORDERED: METR-1 PO ×2 (14:48)
[2017-05-27] MEDS ORDERED: PANT20 PO ×2 (14:48)
[2017-05-27] MEDS ORDERED: CLAR500T PO ×2 (14:48)
--- NOTE | 2017-05-27 14:49 | HHI.DCPOC ---
Discharge Care Plan Diagnosis: (1) Acute renal failure (2) Elevated liver enzymes (3) Nausea vomiting and diarrhea (4) Acid-base disorder, mixed (5) Thrombocytopenia (6) Sepsis (7) Septic shock (8) Acute gastroenteritis (9) Lactic acidosis (10) Atelectasis (11) Pulmonary edema (12) Myocardial stunning (13) Electrolyte abnormality (14) HANSEL (acute kidney injury) Goals to Promote Your Health * To prevent worsening of your condition and complications * To maintain your health at the optimal level Directions to Meet Your Goals Take your medications as prescribed Follow your dietary instruction Follow activity as directed Keep your appointments as scheduled Take your immunizations and boosters as scheduled If your symptoms worsen call your PCP, if no PCP go to Urgent Care Center or Emergency Room Smoking is Dangerous to Your Health. Avoid second hand smoke Call the 24-hour hour crisis hotline for domestic abuse at Petar Johnson MD May 27, 2017 14:49
--- NOTE | 2017-05-27 14:49 | HHI.DCPOC ---
Discharge Care Plan Diagnosis: (1) Acute renal failure (2) Elevated liver enzymes (3) Nausea vomiting and diarrhea (4) Acid-base disorder, mixed (5) Thrombocytopenia (6) Sepsis (7) Septic shock (8) Acute gastroenteritis (9) Lactic acidosis (10) Atelectasis (11) Pulmonary edema (12) Myocardial stunning (13) Electrolyte abnormality (14) HANSEL (acute kidney injury) Goals to Promote Your Health * To prevent worsening of your condition and complications * To maintain your health at the optimal level Directions to Meet Your Goals Take your medications as prescribed Follow your dietary instruction Follow activity as directed Keep your appointments as scheduled Take your immunizations and boosters as scheduled If your symptoms worsen call your PCP, if no PCP go to Urgent Care Center or Emergency Room Smoking is Dangerous to Your Health. Avoid second hand smoke Call the 24-hour hour crisis hotline for domestic abuse at Petar Johnson MD May 27, 2017 14:49
--- NOTE | 2017-05-27 14:49 | HHI.DCPOC ---
Discharge Care Plan Diagnosis: (1) Acute renal failure (2) Elevated liver enzymes (3) Nausea vomiting and diarrhea (4) Acid-base disorder, mixed (5) Thrombocytopenia (6) Sepsis (7) Septic shock (8) Acute gastroenteritis (9) Lactic acidosis (10) Atelectasis (11) Pulmonary edema (12) Myocardial stunning (13) Electrolyte abnormality (14) HANSEL (acute kidney injury) Goals to Promote Your Health * To prevent worsening of your condition and complications * To maintain your health at the optimal level Directions to Meet Your Goals Take your medications as prescribed Follow your dietary instruction Follow activity as directed Keep your appointments as scheduled Take your immunizations and boosters as scheduled If your symptoms worsen call your PCP, if no PCP go to Urgent Care Center or Emergency Room Smoking is Dangerous to Your Health. Avoid second hand smoke Call the 24-hour hour crisis hotline for domestic abuse at Petar Johnson MD May 27, 2017 14:49
--- NOTE | 2017-05-27 15:01 | HHI.DS ---
Discharge Summary Admission Date May 20, 2017 at 11:42 Discharge Date: May 27, 2017 Admitting Diagnosis Acute renal failure, elevated liver enzymes, nausea, vomiting, diarr (1) Septic shock ICD Code: A41.9 - Sepsis, unspecified organism; R65.21 - Severe sepsis with septic shock Diagnosis: Principal Status: Resolved (2) Myocardial stunning ICD Code: I51.5 - Myocardial degeneration Diagnosis: Principal Status: Resolved (3) Pulmonary edema ICD Code: J81.1 - Chronic pulmonary edema Diagnosis: Principal Status: Resolved (4) Atelectasis ICD Code: J98.11 - Atelectasis Diagnosis: Principal Status: Resolved (5) HANSEL (acute kidney injury) ICD Code: N17.9 - Acute kidney failure, unspecified Diagnosis: Principal Status: Resolved (6) Acute gastroenteritis ICD Code: K52.9 - Noninfective gastroenteritis and colitis, unspecified Diagnosis: Principal Status: Resolved (7) Electrolyte abnormality ICD Code: E87.8 - Other disorders of electrolyte and fluid balance, not elsewhere classified Diagnosis: Principal Status: Resolved (8) Lactic acidosis ICD Code: E87.2 - Acidosis Diagnosis: Principal Status: Resolved Procedures sp EGD/colonoscopy ---> Gastritis, esophagitis. Brief History - From Admission Delayed Note Entry. Patient initially seen and evaluated around 11:45am in the emergency department. I made frequent re-assessments throughout the day. This is a 21yF with no remarkable past medical history who presents to the ER with a 3 day history of nausea, vomiting, and liquid diarrhea. The patient states that she ate a salad and chili 3 days [employer], and then approximately 8-12h later had onset of nausea and vomiting and soon after diarrhea. the emesis she describes as clear to somewhat brown, without blood, not coffee grounds, without a bilious appearance. she describes her diarrhea as completely watery, again without blood or dark black color. It is not associated with food. She endorses some generalized abdominal pain, but cannot point to any one area. She also endorses fever and chills over this time period. Denies chest pain, shortness of breath. She also endorses some "tingling" of her hands and feet, although this is difficult to describe, she does describe them as "weak" and "fatigued." She also states she has not urinated x 48h. In the emergency department, she was hypotensive and tachycardic which both responded to ivf. Her laboratory data is significant for leukocytosis to 14k, thrombocytopenia 140k, INR 2.0, elevated t bili at 5.5, Cr of > 6, lactate of almost 7, significant anion-gap metabolic acidosis. Critical care medicine is consulted to evaluate and manage her septic shock and multi-organ system dysfunction. CBC/BMP: 05/27/17 0750 05/27/17 0750 Significant Findings Laboratory Tests Test 05/24/17 19:00 05/25/17 10:33 05/26/17 01:30 05/27/17 07:50 White Blood Count 13.8 TH/MM3 (4.0-11.0) 13.3 TH/MM3 (4.0-11.0) Red Blood Count 3.51 MIL/MM3 (4.00-5.30) 3.41 MIL/MM3 (4.00-5.30) 3.71 MIL/MM3 (4.00-5.30) Hemoglobin 10.5 GM/DL (11.6-15.3) 10.0 GM/DL (11.6-15.3) 11.2 GM/DL (11.6-15.3) Hematocrit 31.7 % (35.0-46.0) 30.9 % (35.0-46.0) 33.5 % (35.0-46.0) Platelet Count 101 TH/MM3 (150-450) 140 TH/MM3 (150-450) Prothrombin Time 12.1 SEC (9.8-11.6) 11.9 SEC (9.8-11.6) Activated Partial Thromboplast Time 24.2 SEC (24.3-30.1) 36.6 SEC (24.3-30.1) Blood Urea Nitrogen 19 MG/DL (7-18) Random Glucose 109 MG/DL (74-106) Total Protein 5.7 GM/DL (6.4-8.2) 6.1 GM/DL (6.4-8.2) 6.0 GM/DL (6.4-8.2) Albumin 2.4 GM/DL (3.4-5.0) 2.6 GM/DL (3.4-5.0) 2.7 GM/DL (3.4-5.0) Calcium Level 8.1 MG/DL (8.5-10.1) 7.9 MG/DL (8.5-10.1) 8.1 MG/DL (8.5-10.1) Aspartate Amino Transf (AST/SGOT) 73 U/L (16-38) 68 U/L (16-38) 50 U/L (16-38) Alanine Aminotransferase (ALT/SGPT) 52 U/L (9-42) 53 U/L (9-42) 45 U/L (9-42) Total Bilirubin 1.1 MG/DL (0.2-1.0) Direct Bilirubin 0.7 MG/DL (0.0-0.2) 0.6 MG/DL (0.0-0.2) 0.5 MG/DL (0.0-0.2) Lymphocytes (%) (Auto) 45.5 % (9.0-44.0) Monocytes (%) (Auto) 9.5 % (0.0-8.0) Band Neutrophils % 7 % (0-6) Metamyelocytes 9 % (0-1) Myelocytes 4 % (0-0) Toxic Granulation 1+ (NORMAL) Platelet Morphology Comment ENLARGED (NORMAL) Test 05/27/17 13:00 Prothrombin Time 12.0 SEC (9.8-11.6) Activated Partial Thromboplast Time 24.0 SEC (24.3-30.1) Imaging Last Impressions Cholangiopancreatography MRI 05/23/17 0000 Signed Impressions: Service Date/Time: May 13:17 - CONCLUSION: 1. No evidence of gallstones or biliary tract obstruction. 2. Mild diffuse enlargement of the liver. Derrick Raman MD Chest X-Ray 05/22/17 0000 Signed Impressions: Service Date/Time: Monday, May 22, 2017 07:05 - CONCLUSION: 1. Rapid development of extensive airspace disease which may represent pulmonary edema considering the patient's history. 2. Cardiomegaly Paul Malone MD Neck CT 05/20/17 [id number] Signed Impressions: Service Date/Time: Saturday, May 20, 2017 17:26 - CONCLUSION: 1. Limited evaluation secondary to lack of intravenous contrast. No masses are identified 2. Nonspecific slightly enlarged nodes in group 2 on the right Isma Randhawa MD Chest CT 05/20/17 1633 Signed Impressions: Service Date/Time: Saturday, May 20, 2017 17:29 - CONCLUSION: Patchy airspace disease both lung base is without pleural effusion. Zeus Pulido MD FACR Abdomen/Pelvis CT 05/20/17 1633 Signed Impressions: Service Date/Time: Saturday, May 20, 2017 17:29 - CONCLUSION: Limited exam without oral intravenous contrast. There is no free air. Do not see evidence for an abscess.. Zeus Pulido MD FACR Abdomen Ultrasound 05/20/17 0000 Signed Impressions: Service Date/Time: Saturday, May 20, 2017 12:08 - CONCLUSION: Scattered small hyperechoic nonspecific there is left lobe of the liver. There are no gallstones. CT scan with contrast may be of benefit. Zeus Pulido MD FACR PE at Discharge AAOx3, nad, lying in bed Clear lungs BL S1S2 RRR, no MRG abdomen is soft, nt,nd no edema in Bl lower extremities Pt Condition on Discharge: Stable Discharge Disposition: Discharge Home Discharge Time: > 30 minutes Discharge Instructions DIET: Follow Instructions for: As Tolerated, No Restrictions Activities you can perform: Regular-No Restrictions, See Additionl Instruction Other Activity Instructions: as per PT recommendations. Follow up Referrals: Gastroenterology - 2 Weeks with Christine Conde MD PCP Follow-up - 1 Week New Medications: Clarithromycin (Clarithromycin) 500 Mg Tab 500 MG PO Q12HR for Infection, #24 TAB Metronidazole (Flagyl) 500 Mg Tab 500 MG PO Q12HR for Infection, #24 TAB Pantoprazole (Protonix) 20 Mg Tab 40 MG PO BID for Infection, #24 TAB Petar Johnson MD May 27, 2017 15:01
[2017-05-27] MEDS ORDERED: MESA1TAB2 PO ×2 (15:04)
--- NOTE | 2017-05-27 15:07 | HHI.FF ---
Face to Face Verification Diagnosis: (1) Generalized weakness (2) Acute gastroenteritis (3) H. pylori infection (4) Pulmonary edema (5) HANSEL (acute kidney injury) (6) Lactic acidosis (7) Septic shock (8) Thrombocytopenia (9) Electrolyte abnormality (10) Myocardial stunning (11) Atelectasis (12) Sepsis (13) Acid-base disorder, mixed (14) Nausea vomiting and diarrhea (15) Elevated liver enzymes (16) Acute renal failure Physical Therapy Order: Improve ambulation, Strength and gait training Home Health Nursing Order: Nursing assessment with vital signs I have seen patient Sarah Gunn on 05/27/17. My clinical findings support the need for the requested home health care services because: Infection w/ risk of complications I certify that my clinical findings support that this patient is homebound because: Unsteady gait/balance Unsafe to leave home unassisted Unable to use public transportation Petar Johnson MD May 27, 2017 15:07
[2017-05-28 23:50] LABS: HERPES 6 IGM <1:20; HERPES INTERPRETATION PAST INFECTION (NON-REACTVE)
[2017-05-29 16:25] LABS: OSMOTIC GAP 14 mOsm/kg (See Comment)
== END 2017-05-27 18:18 | disposition home health service (06) | DRG 871 ==
LOC: NEPC 08:49 → NEDA 11:42 → N03B 14:18 → N03A 17:39 → HPIC 05-23 13:51 → N07B 05-25 15:53
PROVIDERS: ADMIT Hospitalist; ATTEND Hospitalist
PROC: 03HY32Z Insertion of Monitoring Device into Upper Artery, Percutaneous Approach (ICD-10-PCS; principal; 2017-05-20)
PROC: 02HV33Z Insertion of Infusion Device into Superior Vena Cava, Percutaneous Approach (ICD-10-PCS; 2017-05-20)
PROC: 0DB98ZX Excision of Duodenum, Via Natural or Artificial Opening Endoscopic, Diagnostic (ICD-10-PCS; 2017-05-22)
PROC: 0DB68ZX Excision of Stomach, Via Natural or Artificial Opening Endoscopic, Diagnostic (ICD-10-PCS; 2017-05-22)
PROC: 0DB38ZX Excision of Lower Esophagus, Via Natural or Artificial Opening Endoscopic, Diagnostic (ICD-10-PCS; 2017-05-22)
PROC: 0DBK8ZX Excision of Ascending Colon, Via Natural or Artificial Opening Endoscopic, Diagnostic (ICD-10-PCS; 2017-05-22)
PROC: 0DBL8ZX Excision of Transverse Colon, Via Natural or Artificial Opening Endoscopic, Diagnostic (ICD-10-PCS; 2017-05-22)
PROC: 0DBP8ZX Excision of Rectum, Via Natural or Artificial Opening Endoscopic, Diagnostic (ICD-10-PCS; 2017-05-22)
PROC: 0DBM8ZX Excision of Descending Colon, Via Natural or Artificial Opening Endoscopic, Diagnostic (ICD-10-PCS; 2017-05-22)
DX: A41.9 Sepsis, unspecified organism (principal); R65.21 Severe sepsis with septic shock; D65 Disseminated intravascular coagulation [defibrination syndrome]; K72.00 Acute and subacute hepatic failure without coma; N17.0 Acute kidney failure with tubular necrosis; R57.8 Other shock; E87.1 Hypo-osmolality and hyponatremia; E87.4 Mixed disorder of acid-base balance; J98.11 Atelectasis; J81.1 Chronic pulmonary edema; A08.4 Viral intestinal infection, unspecified; E83.51 Hypocalcemia; R73.9 Hyperglycemia, unspecified; R00.0 Tachycardia, unspecified; E87.6 Hypokalemia; R74.8 Abnormal levels of other serum enzymes; R20.2 Paresthesia of skin; K64.8 Other hemorrhoids; K29.70 Gastritis, unspecified, without bleeding; K20.9 Esophagitis, unspecified; E83.42 Hypomagnesemia; E87.70 Fluid overload, unspecified; R21 Rash and other nonspecific skin eruption; K52.831 Collagenous colitis; I51.5 Myocardial degeneration; E87.8 Other disorders of electrolyte and fluid balance, not elsewhere classified
CPT/HCPCS: 36600; 70490; 71010; 71250; 74176; 74181; 76377; 76700; 80048; 80053; 80074; 80076; 80307; 81001; 82247; 82248; 82310; 82436; 82438; 82533; 82550; 82552; 82570; 82607; 82784; 82805; 82948; 83010; 83516; 83605; 83615; 83735; 83930; 83935; 84100; 84132; 84133; 84155; 84165; 84207; 84300; 84302; 84425; 84439; 84443; 84703; 84999; 85007; 85027; 85060; 85379; 85384; 85610; 85652; 85730; 86038; 86140; 86308; 86592; 86703; 86738; 86790; 87040; 87081; 87086; 87205; 87207; 87328; 87329; 87338; 87425; 87493; 87497; 87506; 87641; 87804; 87880; 88305; 88312; 93005; 93306; 94150; 94640; 94667; 94668; 96360; J0610; J0692; J0878; J1120; J1200; J1250; J1630; J1644; J1940; J2405; J3475; J3480; J7030; J7040; J7070; J7120; P9045